=== PATIENT | female | born 1950 | race Caucasian/White ===

== ENCOUNTER 2016-07-16 20:07 | Emergency (ER) | payer MEDICARE ==
[2015-12-03 08:35] VITALS: BMI 22.2
[~2016-07-16 20:07] MED LIST: ADVAIR 250/501 DISK INH; ASPIRIN325 MG PO; BAYER CHEWABLE81 MG PO; BONIVA150 MG PO; CELEXA10 MG PO; CRESTOR20 MG PO; FENOGLIDE40 MG PO; IMDUR30 MG PO; NEURONTIN 100100 MG PO; NITROSTAT0.4 MG SL; PLAVIX75 MG PO; PLETAL100 MG PO; PROAIR HFA8.5 GM INH; PROTONIX40 MG PO; TOPROL XL100 MG PO; TOPROL XL25 MG PO; VIGAMOX3 ML EACH EYE; VITAMIN D2000 UNIT PO; VITAMIN D31000 UNI2 PO; ZOLOFT100 MG PO; [UNRECOGNIZED DRUG - OTHER]
[2016-07-16 21:38] LABS: BASOPHILS 0.4 % (0.0-2.0); EOSINOPHILS 1.3 % (0-7); HEMATOCRIT 46.1 % (36.0-48.0); HEMOGLOBIN 15.4 g/dL (12-16); IMMATURE GRANULOCYTES 0.2 % (0-5); LYMPHOCYTES 33.4 % (15-50); MCH 28.6 pg (26.0-34.0); MCHC 33.4 g/dL (31.0-37.0); MCV 85.7 fL (80.0-100.0); MEAN PLATELET VOLUME 9.7 fL (7.4-10.4); MONOCYTES 8.6 % (2-11); NEUTROPHILS 56.1 % (40-80); PLATELET COUNT 213 10x3/uL (130-400); RBC 5.38 10x6/uL (4.00-5.40); RDW 14.8 % (11.5-14.5); WBC 10.4 10x3/uL (4.8-10.8)
[2016-07-16 21:56] LABS: ALBUMIN 4.2 g/dL (3.4-5.0); ALKALINE PHOSPHATASE 88 U/L (46-116); ALT (SGPT) 24 U/L (10-68); CALC OSMOLALITY 282 mosm/kg (275-300); CARBON DIOXIDE 30.8 mmol/L (21.0-32.0); CHLORIDE - SERUM 102 mmol/L (98-107); CREATININE - SERUM 0.6 mg/dL (0.6-1.3); GLUCOSE 117 mg/dL (74-106); POTASSIUM - SERUM 3.4 mmol/L (3.5-5.1); SODIUM 142 mmol/L (136-145); UREA NITROGEN 9 mg/dL (7-18); eGFR NON AFRICAN AMERICAN > 90 mL/min (90-120)
[2016-07-16 21:59] LABS: APTT 29.3 SECONDS (22.8-39.4); INR 0.92 (0.85-1.17); PROTIME 12.2 SECONDS (11.6-15.0)
== END 2016-07-16 23:41 | disposition home or self-care (01) ==
LOC: D.ER 20:07
PROVIDERS: Emergency Medicine
DX: R42 Dizziness and giddiness (principal); J44.9 Chronic obstructive pulmonary disease, unspecified; E78.5 Hyperlipidemia, unspecified; F33.9 Major depressive disorder, recurrent, unspecified

== ENCOUNTER → 2016-07-17 12:46 | Outpatient (CLI) | payer MEDICARE ==
[2015-12-03 08:35] VITALS: BMI 22.2
== END | disposition home or self-care (01) ==
LOC: D.US 12:46
DX: R42 Dizziness and giddiness (principal); I65.22 Occlusion and stenosis of left carotid artery

== ENCOUNTER → 2016-07-23 10:42 | Outpatient (CLI) | payer MEDICARE ==
[2015-12-03 08:35] VITALS: BMI 22.2
== END | disposition home or self-care (01) ==
LOC: D.CT 10:42
DX: I65.22 Occlusion and stenosis of left carotid artery (principal)

== ENCOUNTER → 2016-08-22 06:27 | Outpatient (CLI) | payer MEDICARE ==
[2015-12-03 08:35] VITALS: BMI 22.2
== END | disposition home or self-care (01) ==
LOC: D.RT 06:27
DX: J44.9 Chronic obstructive pulmonary disease, unspecified (principal)

== ENCOUNTER 2016-12-28 11:39 | Inpatient (IN) | payer MEDICARE ==
[~2016-12-28] VITALS: Ht 157.5 cm; Wt 53.5 kg
--- NOTE | 2016-12-28 11:00 | NUR ---
RECIEVED FROM [facility] PER AMBULANCE/STRETCHER TO ROOM 1113R.POSITIONED UP IN BED.CL GIVEN.SURROUNDINGS EXPLAINED.ORIENTED TO ROOM.
--- NOTE | 2016-12-28 13:44 | NUR ---
SITTING UP IN BED RESTING FAMILY AT BEDSIDE. OFFERS NO COMPLAINTS. CALL LIGHT IN REACH. WILL CONTINUE TO MONITOR.
[2016-12-28] MEDS ORDERED: CRESTOR40 MG PO (14:39)
[2016-12-28] MEDS ORDERED: FENOFIBRATE54 MG PO (14:39)
[2016-12-28] MEDS ORDERED: ALENDRONATE SOD70 MG PO (14:40)
[2016-12-28] MEDS ORDERED: ASPIRIN325 MG PO (14:42)
[2016-12-28] MEDS ORDERED: LEVAQUIN500 MG PO (14:48)
[2016-12-28] MEDS ORDERED: PROTONIX40 MG PO (14:49)
[2016-12-28] MEDS ORDERED: REMERON15 MG PO (14:49)
--- NOTE | 2016-12-28 15:41 | NUR ---
LYING IN BED RESTING COMFORTABLY. CALL LIGTH IN REACH. WILL CONTINUE TO MONITOR
[2016-12-28 17:21] VITALS: BP 103/75; BMI 21.6
--- NOTE | 2016-12-28 18:59 | NUR ---
SITTING UP IN BED RESTING COMFORTABLY. AT BEDSIDE. CALL LIGHT IN REACH. WILL CONTINUE TO MONITOR
[2016-12-28 19:00] VITALS: BP 123/69
--- NOTE | 2016-12-28 19:47 | NUR ---
PT. IN BED WITH HOB UP FOR COMFORT WITH EYES CLOSED AND RESP. EVEN. SPOUSE AT BEDSIDE AND IS PREPARING TO LEAVE FOR THE NIGHT. CALL LIGHT WITHIN REACH. ELIZONDO CATHETER TO BSD WITHOUT PROBLEMS.
--- NOTE | 2016-12-28 20:00 | NUR ---
PT IN BED WITH HOB UP FOR COMFORT. RESTING QUIETLY. LEFT SIDE WEAKNESS. ELIZONDO CATH. ASPIRATION PRECAUTIONS. MEPILEX ON BUTTOCK FOR CUSHION. BED IN LOWEST POSITION AND CALL LIGHT WITHIN REACH.
--- NOTE | 2016-12-29 | NUR ---
PT LYING IN BED WITH HOB UP FOR COMFORT. EYES CLOSED. RESP EVEN. BED IN LOWEST POSITION AND CALL LIGHT WITHIN REACH.
--- NOTE | 2016-12-29 03:00 | NUR ---
PT LYING IN BED WITH HOB UP FOR COMFORT, EYES CLOSED, CHEST RISING AND FALLING. BED IN LOWEST POSITION AND CALL LIGHT WITHIN REACH.
[2016-12-29 05:06] LABS: BASOPHILS 0.2 % (0-2); EOSINOPHILS 1.6 % (0-7); HEMATOCRIT 33.6 % (36.0-48.0); HEMOGLOBIN 10.9 g/dL (12-16); IMMATURE GRANULOCYTES 1.4 % (0-5); LYMPHOCYTES 22.7 % (15-50); MCH 28.2 pg (26.0-34.0); MCHC 32.4 g/dL (31.0-37.0); MEAN PLATELET VOLUME 9.1 fL (7.4-10.4); MONOCYTES 10.4 % (2-11); NEUTROPHILS 63.7 % (40-80); RBC 3.86 10x6/uL (4.00-5.40); RDW 15.3 % (11.5-14.5); WBC 12.4 10x3/uL (4.8-10.8)
[2016-12-29 05:10] LABS: PLATELET COUNT 571 10x3/uL (130-400)
[2016-12-29 05:33] LABS: CALC OSMOLALITY 280 mosm/kg (275-300); CALCIUM 8.9 mg/dL (8.5-10.1); CARBON DIOXIDE 26.4 mmol/L (21.0-32.0); CHLORIDE - SERUM 104 mmol/L (98-107); CREATININE - SERUM 0.6 mg/dL (0.6-1.3); GLUCOSE 102 mg/dL (74-106); POTASSIUM - SERUM 4.2 mmol/L (3.5-5.1); SODIUM 140 mmol/L (136-145); UREA NITROGEN 18 mg/dL (7-18); eGFR NON AFRICAN AMERICAN > 90 mL/min (90-120)
--- NOTE | 2016-12-29 06:15 | NUR ---
PT LYING IN BED WITH HOB UP FOR COMFORT. WATCHING TV. BED IN LOWEST POSITION AND CALL LIGHT WITHIN REACH.
--- NOTE | 2016-12-29 07:18 | NUR ---
RESTING QUIETLY IN BED. NO S/S DISTRESS. CALL LIGHT IN REACH
[2016-12-29 09:06] VITALS: BP 93/64
[2016-12-29 12:15] VITALS: Ht 157.5 cm; Wt 53.5 kg
[2016-12-29 19:23] VITALS: BP 117/87
--- NOTE | 2016-12-29 20:15 | NUR ---
RECIEVED UP IN BED WITH FAMILY AT BEDSIDE. LEFT ARM AMD LEG FLACCID WITH NO PURPOSEFUL MOVEMENT. BLURRED VISION IN LEFT EYE. HELD UP 2 FINGERS AND THOUGHT THERE WERE 3 . ABLE TO SEE 2 FINGERS WITH RIGHT EYE. UNABLE TO TURN HER HEAD TO THE RIGHT. ALERT AND ORIENTED X4. SUTURES TO RIGHT SIDE OF NECK INTACT. NO REDNESS OR DRAINAGE OBSERVED. SCAB TO INNER LEFT THIGH. F/C PATENT WITH LIGHT YELLOW URINE DRAINING TO BEDSIDE DRAINAGE SYSTEM. LEFT ARM IN SLING.
--- NOTE | 2016-12-30 06:43 | NUR ---
RESTING IN BED WITH EYES CLOSED. NO S/S OF DISTRESS OBSERVED. ABLE TO TAKE AM MED WHOLE WITH PUDDING WITHOUT DIFFICULTY. ELIZONDO CATH PATENT.
[2016-12-30 07:00] VITALS: BP 105/64
--- NOTE | 2016-12-30 08:00 | NUR ---
SITTING UP IN BED BEING FED BREAKFAST BY . SHE HAS LEFT SIDE NEGLECT. DOES NOT LOOK PAST MIDLINE TO THE LEFT. HAS POOR PERIPHERAL VISION PER PT. SHE IS ORIENTED EXCEPT FOR LOCATION. SPEECH CLEAR. DENIES PAIN. LUE FLACCID WITH SLING IN PLACE. SHE DOES NOT ACKNOWLEDGE LUE. LLE IS WEAK BUT SHE HAS GROSS MOTOR MOVEMENT TO IT. WEAKNESS NOTED TO RLE'S BUT FULL ROM. F/C DRAINING CLOUDY URINE. FOLLOWS COMMANDS. MAX ASST WITH ALL ADL'S REQUIRED. STAYS WITH PT QUITE A BIT DURING THE DAY.
--- NOTE | 2016-12-30 12:12 | NUR ---
SITTING IN W/C IN ROOM WITH BLANCHE. SHE HAS TRAY IN FRONT OF HER AND TRYING TO GET HER TO FEED HERSELF.
[2016-12-30 14:11] VITALS: BP 105/64
--- NOTE | 2016-12-30 15:40 | NUR ---
RESTING QUIETLY IN BED. DENIES NEEDS OR C/O. ASST TO TURN OFF BACK TO HELP PREVENT SKIN BREAKDOWN.
--- NOTE | 2016-12-30 19:07 | NUR ---
RECIEVED LYING IN BED WITH EYES OPEN. ORIENTED X4. DENIES ANY PAIN AT THIS TIME. F/C PATENT AND DRAINING CLEAR YELLOW URINE TO BED SIDE DRAINAGE SYSTEM. CALL LIGHT IN REACH.
--- NOTE | 2016-12-30 20:54 | NUR ---
RECIEVED UP IN BED WITH EYES OPEN. ALERT AND ORIENTED TO PERSON, PLACE , TIME AND SITUATION. PLEASANT AND TALKATIVE, STATES "I'M AFRAID TO GOO TO SLEEP. BECAUSE I'M AFRAID THEY WILL DO ANOTHER SURGERY ON MY HEAD". EXPLAIN THIS NURSE IS UNAWARE OF ANY UPCOMMING SURGERIES. EXPLAINED THAT SHE NEEDS HER SLEEP SO SHE CAN DO THERAPY. SHE AGREED. CONTINUES TO HAVE FLACCID LEFT SIDE WITH SLING TO LEFT ARM. CALL LIGHT AND OVERBED TABLE IN REACH.
[2016-12-30 22:37] VITALS: BP 118/52
--- NOTE | 2016-12-31 00:04 | NUR ---
RESTING IN BED WITH EYES CLOSED. EASILY AROUSES WHEN ENTERING THE ROOM. GLASSES LAYING ON THE BED, PLACED ON BEDSIDE TABLE.DENIES ANY PAIN. LEFT ARM REMAINS IN SLING.
--- NOTE | 2016-12-31 02:34 | NUR ---
RESTING IN BED WITH EYES CLOSED. NO S/S OF DISTRESS OBSERVED. HOB ELEVATED FOR COMFORT. CALL LIGHT IN REACH.
[2016-12-31 06:46] LABS: BASOPHILS 0.4 % (0-2); EOSINOPHILS 1.6 % (0-7); HEMATOCRIT 33.2 % (36.0-48.0); HEMOGLOBIN 10.9 g/dL (12-16); IMMATURE GRANULOCYTES 0.7 % (0-5); LYMPHOCYTES 18.7 % (15-50); MCH 28.6 pg (26.0-34.0); MCHC 32.8 g/dL (31.0-37.0); MCV 87.1 fL (80.0-100.0); MEAN PLATELET VOLUME 9.2 fL (7.4-10.4); MONOCYTES 11.2 % (2-11); NEUTROPHILS 67.4 % (40-80); PLATELET COUNT 589 10x3/uL (130-400); RBC 3.81 10x6/uL (4.00-5.40); RDW 15.5 % (11.5-14.5); WBC 10.1 10x3/uL (4.8-10.8)
[2016-12-31 07:02] LABS: CALC OSMOLALITY 282 mosm/kg (275-300); CALCIUM 8.6 mg/dL (8.5-10.1); CARBON DIOXIDE 26.5 mmol/L (21.0-32.0); CHLORIDE - SERUM 106 mmol/L (98-107); CREATININE - SERUM 0.5 mg/dL (0.6-1.3); GLUCOSE 105 mg/dL (74-106); POTASSIUM - SERUM 4.2 mmol/L (3.5-5.1); SODIUM 142 mmol/L (136-145); UREA NITROGEN 13 mg/dL (7-18); eGFR NON AFRICAN AMERICAN > 90 mL/min (90-120)
--- NOTE | 2016-12-31 08:00 | NUR ---
SHIFT ASSMT COMPLETED.DENIES NEEDS.SET UP PROVIDED FOR BREAKFAST.LOOKING MORE TO LEFT;NOT FAVORING RIGHT MUCH PAST WEEKEND.
[2016-12-31 08:02] VITALS: BP 100/59
--- NOTE | 2016-12-31 12:00 | NUR ---
at bedside.CL IN REACH.
--- NOTE | 2016-12-31 12:00 | NUR ---
EATING LUNCH. ASSISTING.
--- NOTE | 2016-12-31 16:00 | NUR ---
VISITING WITH .CL IN REACH.
[2016-12-31 19:00] VITALS: BP 94/55
--- NOTE | 2016-12-31 19:15 | NUR ---
PT IN BED WITH HOB UP FOR COMFORT. WATCHING TV. ALERT & ORIENTED. LEFT SIDE WEAKNESS. 02 @ 2L VIA N/C. NO IV. ELIZONDO CATH. BED IN LOWEST POSITION AND CALL LIGHT WITHIN REACH.
--- NOTE | 2016-12-31 19:43 | NUR ---
PT. IN BED WITH HOB UP FOR COMFORT WITH EYES CLOSED AND RESP. EVEN. ELIZONDO TO BSD WITHOUT PROBLEMS. CALL LIGHT WITHIN REACH.
--- NOTE | 2016-12-31 23:40 | NUR ---
PT LYING IN BED. EYES CLOSED. CHEST RISING AND FALLING. BED IN LOWEST POSITION AND CALL LIGHT WITHIN REACH.
--- NOTE | 2017-01-01 03:40 | NUR ---
PT LYING IN BED. EYES CLOSED. RESP. EVEN. BED IN LOWEST POSITION AND CALL LIGHT WITHIN REACH.
--- NOTE | 2017-01-01 05:46 | NUR ---
PT LYING IN BED. EYES CLOSED. RESP. EVEN. BED IN LOWEST POSITION AND CALL LIGHT WITHIN REACH.
[2017-01-01 08:00] VITALS: BP 156/84
--- NOTE | 2017-01-01 08:00 | NUR ---
SHIFT ASSMT COMPLETED.DENIES NEEDS.CL IN REACH.MOVED TO ROOM 1116A.SITTING UP IN WC.BREAKFAST WITH MEAL SET-UP PROVIDED.
--- NOTE | 2017-01-01 10:29 | NUR ---
Nutrition Follow Up: Chart reviewed. Pt is eating 42% meal avg on a regular [facility] soft diet. +BM 12/31/16. Wt stable. Labs reviewed. Meds noted including Remeron. Rec continue current diet per OPTOMETRY ASSISTANT recs. RD following.
--- NOTE | 2017-01-01 12:00 | NUR ---
SITTING UP FOR LUNCH.SPEECH WORKING AT BEDSIDE WITH MEAL.
--- NOTE | 2017-01-01 16:00 | NUR ---
HAD SM INCONT OF BM.BLADDER TRAINING.CLEANED AND CLOTHES CHANGED.UP IN WC.
--- NOTE | 2017-01-01 19:10 | NUR ---
PT IN BED WITH HOB UP FOR COMOFRT. ALERT & ORIENTED. FAMILY AT BEDSIDE. NO O2. NO IV. BED IN LOWEST POSITION AND CALL LIGHT WITHIN REACH.
[2017-01-01 19:15] VITALS: BP 111/78
--- NOTE | 2017-01-01 22:40 | NUR ---
PT. IN BED WITH HOB UP FOR COMFORT WITH EYES CLOSED AND RESP. EVEN. CALL LIGHT WITHIN REACH. MIKHAIL TO BSD WITHOUT ANY PROBLEMS.
--- NOTE | 2017-01-02 02:40 | NUR ---
PT LYING IN BED. EYES CLOSED. CHEST RISING AND FALLING. BED IN LOWEST POSITION AND CALL LIGHT WITHIN REACH.
--- NOTE | 2017-01-02 06:19 | NUR ---
PT LYING IN BED. EYES CLOSED. RESP. EVEN. BED IN LOWEST POSITION AND CALL LIGHT WITHIN REACH.
[2017-01-02 06:32] LABS: BASOPHILS 0.4 % (0-2); EOSINOPHILS 2.1 % (0-7); HEMATOCRIT 33.3 % (36.0-48.0); HEMOGLOBIN 10.8 g/dL (12-16); IMMATURE GRANULOCYTES 0.4 % (0-5); LYMPHOCYTES 24.3 % (15-50); MCH 28.3 pg (26.0-34.0); MCHC 32.4 g/dL (31.0-37.0); MCV 87.2 fL (80.0-100.0); MEAN PLATELET VOLUME 9.2 fL (7.4-10.4); MONOCYTES 14.2 % (2-11); NEUTROPHILS 58.6 % (40-80); PLATELET COUNT 603 10x3/uL (130-400); RBC 3.82 10x6/uL (4.00-5.40); WBC 8.6 10x3/uL (4.8-10.8)
[2017-01-02 06:46] LABS: CALC OSMOLALITY 274 mosm/kg (275-300); CALCIUM 8.4 mg/dL (8.5-10.1); CARBON DIOXIDE 27.1 mmol/L (21.0-32.0); CHLORIDE - SERUM 103 mmol/L (98-107); CREATININE - SERUM 0.5 mg/dL (0.6-1.3); GLUCOSE 100 mg/dL (74-106); POTASSIUM - SERUM 4.2 mmol/L (3.5-5.1); SODIUM 138 mmol/L (136-145); UREA NITROGEN 11 mg/dL (7-18); eGFR NON AFRICAN AMERICAN > 90 mL/min (90-120)
--- NOTE | 2017-01-02 07:50 | NUR ---
RESTING QUIETLY IN BED. NO S/S DISTRESS OR NEEDS. CALL LIGHT IN REACH
[2017-01-02 08:16] VITALS: BP 109/55
--- NOTE | 2017-01-02 13:20 | NUR ---
SITTING UP VISITING WITH FRIEND IN ROOM. SHE DENIES PAIN OR NEEDS.
--- NOTE | 2017-01-02 16:35 | NUR ---
PATIENT ADMITTED TO [place] [facility] [place]. PLANS ARE FOR PATIENT TO RETURN HOME WITH FAMILY AT DISCHARGE. WILL CONTINUE TO FOLLOW WITH PATIENT
--- NOTE | 2017-01-02 19:25 | NUR ---
TALKS TO PT AT BEDSIDE.
[2017-01-03 02:34] VITALS: BP 131/73
--- NOTE | 2017-01-03 03:25 | NUR ---
IN BED, RESTING QUIETLY.
--- NOTE | 2017-01-03 05:11 | NUR ---
REST IN BED, EYE CLOSE, CALL LIGHT IN REACH.
[2017-01-03 07:11] VITALS: BP 134/67
--- NOTE | 2017-01-03 07:33 | NUR ---
RESTING QUIETLY IN BED. NO S/S DISTRESS NOTED. CALL LIGHT IN REACH
--- NOTE | 2017-01-03 09:52 | NUR ---
ASSISTED FROM BED TO CHAIR. PT STATES SHE IS NOT FEELING WELL TODAY C/O CHEST AND BACK HURTING AND RELATES TO SAME SYMPTOMS WHEN SHE HAD PNEUMONIA LAST TIME. DIMINISHED LUNG SOUNDS ON RIGHT SIDE AND PT IS NOT TAKING DEEP MEANINGFUL BREATHS. EDUCATED PT AND SPOUSE ON TCDB EVERY HOUR TO PREVENT PNEUMONIA.
--- NOTE | 2017-01-03 12:16 | NUR ---
SITTING UP IN BED EATING LUNCH. AT BEDSIDE. CALL LIGHT IN REACH. WILL CONTINUE TO MONITOR
--- NOTE | 2017-01-03 16:58 | NUR ---
SITTING UP IN BED VISITING FAMILY. PLEASANT AFFECT. DENIES ANY PAIN AND OFFERS NO COMPLAINTS. CALL LIGHT IN REACH. WILL CONTINUE TO MONITOR
--- NOTE | 2017-01-03 19:50 | NUR ---
REST IN BED AND WATCH TV.
--- NOTE | 2017-01-03 22:10 | NUR ---
RESTING IN BED, EYES CLOSED.
[2017-01-04 00:46] VITALS: BP 130/64
--- NOTE | 2017-01-04 02:21 | NUR ---
REST QUIETLY IN BED, EYE CLOSE, CALL LIGHT IN REACH.
--- NOTE | 2017-01-04 07:50 | NUR ---
SITTING UP IN BED FAMILY AT BEDSIDE. PLEASANT AFFECT. OFFERS NO COMPLAINTS. CALL LIGHT IN REACH. WILL CONTINUE TO MONITOR
--- NOTE | 2017-01-04 09:42 | NUR ---
LYING ON RIGHT SIDE RESTING COMFORTABLY. FAMILY AT BEDSIDE. STARTED BLADDER TRAINING AND PROVIDED ELIZONDO CARE. ADMINISTERED MORNING MEDS WITHOUT DIFFICULTY ONE AT A TIME. CALL LIGHT IN REACH. WILL CONTINUE TO MONITOR
--- NOTE | 2017-01-04 11:20 | NUR ---
LYING IN BED RESTING COMFORTABLY. FAMILY AT BEDSIDE. CALL LIGHT IN REACH. WILL CONTINUE TO MONITOR
--- NOTE | 2017-01-04 18:00 | NUR ---
ASSISTED PT WITH SHOWER MOD ASSIST. PT IS UP IN W/C FAMILY IN ROOM. OFFERS NO COMPLAINTS. DENIES PAIN. ELIZONDO CLAMPED OFF FOR BLADDER TRAINING. CALL LIGHT IN REACH
--- NOTE | 2017-01-04 23:45 | NUR ---
ASSISTED PT TO BATHROOM AND BACK TO BED.
[2017-01-05 02:51] VITALS: BP 126/70
--- NOTE | 2017-01-05 03:22 | NUR ---
REST QUIETLY IN BED, EYE CLOSE, CALL LIGHT IN REACH.
[2017-01-05 05:25] LABS: BASOPHILS 0.4 % (0-2); EOSINOPHILS 2.8 % (0-7); HEMATOCRIT 34.1 % (36.0-48.0); IMMATURE GRANULOCYTES 0.4 % (0-5); LYMPHOCYTES 30.3 % (15-50); MCH 28.1 pg (26.0-34.0); MCHC 32.3 g/dL (31.0-37.0); MEAN PLATELET VOLUME 9.2 fL (7.4-10.4); MONOCYTES 12.8 % (2-11); NEUTROPHILS 53.3 % (40-80); PLATELET COUNT 531 10x3/uL (130-400); RBC 3.92 10x6/uL (4.00-5.40); RDW 16.5 % (11.5-14.5); WBC 8.3 10x3/uL (4.8-10.8)
[2017-01-05 05:34] LABS: CALC OSMOLALITY 280 mosm/kg (275-300); CALCIUM 8.6 mg/dL (8.5-10.1); CHLORIDE - SERUM 104 mmol/L (98-107); CREATININE - SERUM 0.6 mg/dL (0.6-1.3); GLUCOSE 116 mg/dL (74-106); POTASSIUM - SERUM 4.2 mmol/L (3.5-5.1); SODIUM 140 mmol/L (136-145); UREA NITROGEN 15 mg/dL (7-18); eGFR NON AFRICAN AMERICAN > 90 mL/min (90-120)
[2017-01-05 07:30] VITALS: BP 151/76
--- NOTE | 2017-01-05 08:30 | NUR ---
PT AM MEDS ADMINISTERED. PT FAMILY AT BEDSIDE. WCROCAEL.
--- NOTE | 2017-01-05 12:05 | NUR ---
PT SITTING UP EATING LUNCH. FAMILY ASSISTING. WCTM.
--- NOTE | 2017-01-05 19:20 | NUR ---
PT IN BED WITH HOB UP FOR COMOFRT. ALERT & ORIENTED. FAMILY AT BEDSIDE. RESERVE BILATERAL UPPER EXTREMITIES. ELIZODNO CATH. LEFT SIDE WEAKNESS. NO O2. NO IV. BED IN LOWEST POSITION AND CALL LIGHT WITHIN REACH.
[2017-01-05 20:07] VITALS: BP 105/64
--- NOTE | 2017-01-05 20:17 | NUR ---
PT. IN BED WITH HOB UP FOR COMFORT AND IS WATCHING HER TV. NO VOICED NEEDS AND HER CALL LIGHT IS WITHIN REACH.
--- NOTE | 2017-01-06 00:15 | NUR ---
PT LYING IN BED. EYES CLOSED. RESPIRATIONS EVEN AND UNLABORED. BED IN LOWEST POSITION AND CALL LIGHT WITHIN REACH.
--- NOTE | 2017-01-06 04:13 | NUR ---
PT LYING IN BED. EYES CLOSED. RESPIRATIONS EVEN AND UNLABORED. BED IN LOWEST POSITION AND CALL LIGHT WITHIN REACH.
[2017-01-06 08:19] VITALS: BP 125/71
--- NOTE | 2017-01-06 08:20 | NUR ---
PT C/O OF HEAVINESS AND PAIN IN CHEST. EKG AND CARDIAC ENZYME TESTS ORDERED. WCTM.
--- NOTE | 2017-01-06 09:17 | NUR ---
PT AM MEDS ADMINISTERED. PT GIVEN PRN TYLENOL FOR PAIN LEVEL 6/10. EKG CAME BACK NORMAL SR. ANGELICA.
--- NOTE | 2017-01-06 09:53 | NUR ---
Nutrition Follow Up: Pt is eating 84% meal avg on a regular [facility] soft diet with thin liquids. +BM 01/05/17. Meds noted inlcuding Remeron. Labs reviewed. Rec continue current diet. RD following.
[2017-01-06 10:04] LABS: CKMB 0.8 U/L (0.0-3.6); CREATINE KINASE 42 UL (21-215); TROPONIN-I 0.028 ng/mL (0.000-0.060)
[2017-01-06 15:12] LABS: CKMB 0.9 U/L (0.0-3.6); CREATINE KINASE 46 UL (21-215); TROPONIN-I 0.024 ng/mL (0.000-0.060)
--- NOTE | 2017-01-06 19:20 | NUR ---
FAMILY MEMBERS VISIT PT.
--- NOTE | 2017-01-06 19:50 | NUR ---
CHECK VITAL SIGNS, RESULT SEE FLOWSHEET.
[2017-01-06 20:22] LABS: CKMB 0.8 U/L (0.0-3.6); CREATINE KINASE 45 UL (21-215); TROPONIN-I 0.023 ng/mL (0.000-0.060)
--- NOTE | 2017-01-06 22:10 | NUR ---
USE STERILE TECHNIC REMOVED SUTURE, AND SUPERVISED BY
[2017-01-07 00:33] VITALS: BP 161/81
--- NOTE | 2017-01-07 01:01 | NUR ---
REST IN BED, EYE CLOSE, CALL LIGHT IN REACH.
--- NOTE | 2017-01-07 03:10 | NUR ---
IN BED, EYES CLOSED. LYING ON RIGHT SIDE. APPEARS COMFORTABLE.
--- NOTE | 2017-01-07 06:10 | NUR ---
ELIZONDO CATH D/C PER ORDER. WITHDREW 10CC OF WATER FROM BALLOON,CATHETER REMOVED WITHOUT DIFFICULTY. INSTRUCTED PT TO NOTIFY NURSE OF FIRST VOID.
[2017-01-07 09:06] VITALS: BP 122/71
--- NOTE | 2017-01-07 10:04 | NUR ---
PT AM MEDS ADMINISTERED. PT MOUNIKA PURCELL. ANGELICA.
--- NOTE | 2017-01-07 17:20 | RHP ---
PATIENT: BRAXTON DAVIS MEDICAL RECORD: [id number] ACCOUNT: [id number] LOCATION:[facility] [id number] : 50 ADMISSION DATE: 12/28/16 REHABILITATION HISTORY AND PHYSICAL EXAMINATION POST ADMISSION PHYSICIAN EXAMINATION DATE OF ADMISSION TO THE REHAB: 12/28/2016. ADMITTING DIAGNOSES: Cerebrovascular accident with left body involvement, respiratory failure. HISTORY OF PRESENT ILLNESS: The patient is a 66-year-old with a bilateral subclavian artery stents, who presented to [facility] with textbook vertebrobasilar insufficiency. She has drops, attacks and dizziness. She had bilateral subclavian artery stents and a nonpalpable right radial pulse. She was evaluated for possible vertebral artery disease as well as bilateral lower extremity peripheral vascular disease. She notes that starting 2009, she had bilateral subclavian stents placed for dizziness and TIA symptoms. She takes dual antiplatelet therapy with aspirin and Plavix. She has had recurrence of her dizziness starting 2-3 months ago. She notes especially when she is having activity with arms like recently while she was working, she has been having dizziness more frequently at 1-2 times a week. She has drop attacks as well, these only last minutes at a time. She has had episodes while driving, no amaurosis fugax, lateralization, weakness or aphasia with these episodes. She has had a previous CTA in July of this year that revealed right subclavian in-stent stenosis at the origin of the right vertebral artery which appeared to be her dominant artery. She has got a history of bilateral lower extremity claudication. She has had a SFA stent placed in [place] as well. She definitely is going to need inpatient rehab to get back to her prior level of functioning, get up and get around. COMORBIDITIES: In this patient include vertebrobasilar insufficiency, hypertension, arthritis, breast cancer, peripheral vascular disease, COPD, depression, vertigo, hyperlipidemia, double vision and peripheral neuropathy. PAST MEDICAL HISTORY: Significant for hypertension, peripheral vascular disease, coronary artery disease, breast cancer, hyperlipidemia and mastectomy. PAST SURGICAL HISTORY: Includes mastectomy and stent placement. ALLERGIES: SULFA AND CODEINE. CURRENT MEDICATIONS: Include TriCor 40 mg daily, Crestor 40 mg daily, Floranex 460 mg daily, Plavix 75 mg daily, Protonix 40 mg daily, Levaquin 500 for a total of 6 doses, aspirin 325 daily. She is on citalopram 20 mg q.h.s., metoprolol 12.5 mg b.i.d., Remeron 15 mg bedtime, acetaminophen as needed for mild to moderate pain, polyethylene glycol 17 grams in 8 ounces of water daily and she is getting albuterol updrafts as needed. HABITS: No alcohol or tobacco use. FAMILY HISTORY: Noncontributory. SOCIAL HISTORY: The patient hopes to return back home. She lives in [place] with her . HISTORY AND PHYSICAL [id number] BRAXTON DAVIS REVIEW OF SYSTEMS: GENERAL: Does complain of weakness and fatigue. HEENT: Denies cold, cough, or congestion. CARDIOVASCULAR: Denies any chest pain. LUNGS: Denies any shortness of breath. PHYSICAL EXAMINATION: VITAL SIGNS: Stable, afebrile. GENERAL: Well-developed female in no acute distress, alert upon exam. HEENT: Normocephalic and atraumatic. Mucosa moist. NECK: Supple. No lymphadenopathy. LUNGS: Clear at this time. HEART: Regular rate and rhythm. ABDOMEN: Benign. EXTREMITIES: No clubbing, cyanosis or edema. NEUROLOGIC: Seems intact. LABORATORY DATA: Her white count is 12.4, H&H of 11 and 34 and platelet count 571. Sodium 140, potassium 4.2, BUN and creatinine of 18 and 0.6 and blood sugar is noted to be 102. ASSESSMENT: This is a 66-year-old female patient admitted to rehab with a working diagnosis of right middle cerebral artery cerebrovascular accident. The patient has potential to make improvement. We instituted the following multidisciplinary therapies including to, but not limited to physical, occupational, respiratory, speech, nutritional services, prosthetics and orthotics. Given her complex condition and risk for more complications, rehabilitation services cannot be provided at a lower level of care such as a senior living facility. PLAN: 1. Admit to [facility] rehab for intensive inpatient therapy to include the following disciplines: A. Physical therapy to improve gait, all transfer skills and bed mobility to a modified independent level. B. Occupational therapy a modified independent level. C. Case management to assist with discharge planning and placement options. D. Nutrition to assist with nutritional needs. E. Rehabilitation nursing to assist in monitoring the patient's underlying medical conditions and to assist with any type of bowel or bladder management. 2. The patient's current medication and medical care will be continued. 3. The patient will be placed on standard fall precautions. 4. Estimated length of stay is approximately 7-10 days. 5. Discuss this patient during care team staff meeting this week. TRANSINT:[id number] Voice Confirmation ID: [id number] DOCUMENT ID: [id number] CHRISTY notes whether there has been none or any medical/functional change since admission: - No change since prescreen. CHRISTY attests patient continues to be appropriate for IRF: HISTORY AND PHYSICAL [id number] BRAXTON DAVIS - Continues to be appropriate. KALLIE AVILES MD at 1720 CC: [id number] DICTATION DATE: 12/29/16 0856 RESOURCE MANAGEMENT PLANNER: 12/29/16 1025 ADM IN [place] [id number] [place] [address]
[2017-01-07 19:00] VITALS: BP 110/54
--- NOTE | 2017-01-07 19:25 | NUR ---
PT IN BED WITH HOB UP FOR COMFORT. WATCHING TV. ALERT & ORIENTED. RESERVE BOTH UPPER EXTREMITIES. TAKE BP ON RIGHT LEG. LEFT SIDE WEAKNESS. RIGHT SIDE NECK BANDAIDE. CONTINENT. NO O2. NO IV. BED IN LOWEST POSITION AND CALL LIGHT WITHIN REACH.
--- NOTE | 2017-01-07 23:25 | NUR ---
PT LYING IN BED WITH HOB UP FOR COMOFRT. EYES CLOSED. CHEST RISING AND FALLING. BED IN LOWEST POSITION AND CALL LIGHT WITHIN REACH.
--- NOTE | 2017-01-08 00:13 | NUR ---
ASSISTED PT TO BATHROOM AND BACK TO BED.
--- NOTE | 2017-01-08 02:40 | NUR ---
RESTING QUIETLY, EYES CLOSED.
--- NOTE | 2017-01-08 06:25 | NUR ---
PT LYING IN BED. EYES CLOSED. RESP. EVEN. BED IN LOWEST POSITION AND CALL LIGHT WITHIN REACH.
--- NOTE | 2017-01-08 08:11 | NUR ---
EATING BREAKFAST IN ROOM. CALL LIGHT IN REACH. DENIES NEEDS.
[2017-01-08 08:49] VITALS: BP 128/89
--- NOTE | 2017-01-08 09:54 | NUR ---
PATIENT IS ALERT/ORIENT X4. HAS FAMILY IN ROOM WITH HER. CALL LIGHT WITHIN REACH.
--- NOTE | 2017-01-08 13:00 | NUR ---
PATIENT SITTING UP IN WHEELCHAIR TO EAT BREAKFAST. CALL LIGHT WITHIN REACH. FAMILY REMAINS IN ROOM.
--- NOTE | 2017-01-08 14:29 | NUR ---
OCCUPATIONAL THERAPIST IN ROOM. HELPING PATIENT WITH A SHOWER.
--- NOTE | 2017-01-08 19:30 | NUR ---
TALK TO PT AT BEDSIDE.
[2017-01-09 00:47] VITALS: BP 101/61
--- NOTE | 2017-01-09 01:42 | NUR ---
REST IN BED, CALL LIGHT IN REACH.
--- NOTE | 2017-01-09 05:01 | NUR ---
REST QUIETLY IN BED, EYE CLOSE, CALL LIGHT IN REACH.
[2017-01-09 07:42] VITALS: BP 141/76
--- NOTE | 2017-01-09 08:50 | NUR ---
PATIENTS IN ROOM WITH PATIENT. HELPING PATIENT INTOF BATHROOM. PATIENT IS ALERT/ORIENT. CALL LIGHT WITHIN REACH. VOICES NO NEEDS AT THIS TIME.
--- NOTE | 2017-01-09 11:00 | NUR ---
PATIENT IN REHAB ROOM. WORKING WITH PHYSICAL THERAPIST. DENIES ANY PAIN/DISC AT THIS TIME.
--- NOTE | 2017-01-09 17:33 | NUR ---
PATIENTS FAMILY REMAINS IN ROOM. PATIENT IS A MIN TO MOD ASST TO THE BATHROOM. FAMILY TAKING PATIENT TO BATHROOM.
[2017-01-09 19:23] VITALS: BP 149/64
--- NOTE | 2017-01-09 19:23 | NUR ---
RECIEVED UP IN BED WITH EYES OPEN AND TV ON. SPOUSE AT BEDSIDE. PLEASANT AND COOPERATIVE. HOB ELEVATED. DENIES ANY PAIN. CALL LIGHT IN REACH.
--- NOTE | 2017-01-09 20:04 | NUR ---
LYING IN BED WITH EYES CLOSED. EASILY AROUSES WITH VERBAL STIMULI. DENIES ANY PAIN AT THIS TIME. CALL LIGHT AND OVERBED TABLE IN REACH.
--- NOTE | 2017-01-09 22:03 | NUR ---
RESTING IN BED WITH EYES OPEN. DENIES ANY PAIN. CALL LIGHT AND OVERBED TABLE IN REACH.
--- NOTE | 2017-01-10 02:17 | NUR ---
LAYING IN BED WITH EYES CLOSED. NO S/S OF DISTRESS OBSERVED. CALL LIGHT AND OVERBED TABLE IN REACH.
--- NOTE | 2017-01-10 04:00 | NUR ---
RESTING IN BED WITH EYES CLOSED. NO S/S OF DISTRESS OBSERVED. CALL LIGHT IN REACH.
--- NOTE | 2017-01-10 07:10 | NUR ---
PT. SLIPPED OFF THE TOILET THIS AM. ROM WITHIN NORMAL LIMITS FOR THIS PT..NO INJURY OBSERVED. STATED " MY LEGGS MUST HAVE GIVEN OUT". THIS NURSE WAS STANDING IN FRONT OF HER AT THE TIME SHE SLID. SLOT SERVICE SPECIALIST NOTIFIED AT 0618. DR. AVILES NOTIFIED AT 0620 AND SPOUSE NOTIFIED AT 0631.
--- NOTE | 2017-01-10 07:10 | NUR ---
RESTING QUIETLY IN BED. NO S/S DISTRESS. CALL LIGHT IN REACH
[2017-01-10 10:46] VITALS: BP 128/76
--- NOTE | 2017-01-10 13:17 | NUR ---
SITTING UP IN BED WATCHING TV. IN ROOM WITH PT. HE ASST HER WITH TASKS AND IS SUPPORTIVE.
[2017-01-10 19:00] VITALS: BP 143/74
--- NOTE | 2017-01-10 19:00 | NUR ---
RECIEVED UP IN BED WITH EYES OPEN AND EATING TAKEOUT FOOD BROUGHT IN BY SPOUSE. SPOUSE AT BEDSIDE. PLEASANT COOPERATIVE AND TALKATIVE. DENIES ANY PAIN AT THIS TIME. CALL LIGHT IN REACH.
--- NOTE | 2017-01-10 21:15 | NUR ---
RESTING IN BED WITH EYES OPEN AND LIGHTS OFF. PLEASANT AND COOPERATIVE. DENIES ANY PAIN OR DISCOMFORT. REPOSITIOONS SELF IN BED. CALL LIGHT AND OVERBED TABLE IN REACH.
--- NOTE | 2017-01-11 01:06 | NUR ---
RESTING IN BED WITH EYES CLOSED. NO S/S OF DISTRESS OBSERVED. CALL LIGHT AND OVERBED TABLE IN [facility].
[2017-01-11 07:36] VITALS: BP 149/71
--- NOTE | 2017-01-11 13:00 | NUR ---
AND GRANDSON HERE TOOK PT OUTSIDE ON DECK TO RELAX IN SUN
--- NOTE | 2017-01-11 18:12 | NUR ---
PT RESTING ,DENIES NEEDS. WCTM.
--- NOTE | 2017-01-11 19:30 | NUR ---
TALKS TO PT AT BEDSIDE.
[2017-01-11 23:57] VITALS: BP 167/92
--- NOTE | 2017-01-12 01:01 | NUR ---
REST IN BED QUIETLY, EYE CLOSE, CALL LIGHT IN REACH.
--- NOTE | 2017-01-12 03:28 | NUR ---
REST IN BED, EYE CLOSE, CALL LIGHT IN REACH.
[2017-01-12 07:08] LABS: BASOPHILS 0.5 % (0-2); EOSINOPHILS 5.2 % (0-7); HEMATOCRIT 38.4 % (36.0-48.0); HEMOGLOBIN 12.3 g/dL (12-16); IMMATURE GRANULOCYTES 0.3 % (0-5); LYMPHOCYTES 39.4 % (15-50); MCH 28.1 pg (26.0-34.0); MCV 87.7 fL (80.0-100.0); MEAN PLATELET VOLUME 9.5 fL (7.4-10.4); MONOCYTES 11.8 % (2-11); NEUTROPHILS 42.8 % (40-80); RBC 4.38 10x6/uL (4.00-5.40); RDW 16.4 % (11.5-14.5); WBC 5.9 10x3/uL (4.8-10.8)
[2017-01-12 07:12] LABS: PLATELET COUNT 309 10x3/uL (130-400)
[2017-01-12 07:16] LABS: CALC OSMOLALITY 278 mosm/kg (275-300); CALCIUM 8.9 mg/dL (8.5-10.1); CARBON DIOXIDE 26.2 mmol/L (21.0-32.0); CHLORIDE - SERUM 106 mmol/L (98-107); CREATININE - SERUM 0.5 mg/dL (0.6-1.3); GLUCOSE 90 mg/dL (74-106); POTASSIUM - SERUM 4.1 mmol/L (3.5-5.1); SODIUM 140 mmol/L (136-145); UREA NITROGEN 13 mg/dL (7-18); eGFR NON AFRICAN AMERICAN > 90 mL/min (90-120)
[2017-01-12 08:00] VITALS: BP 121/77
--- NOTE | 2017-01-12 08:02 | NUR ---
PT RESTING IN BED WITH EYES OPEN CALL LIGHT IN REACH NO PROBLEMS WILL MONITER
--- NOTE | 2017-01-12 19:30 | NUR ---
PM ROUNDS MADE, PT RESTING WITH EYES CLOSED, RESP QUIET, NO DISTRESS NOTED, LEFT UNDISTURBED AT THIS TIME
--- NOTE | 2017-01-12 20:20 | NUR ---
PT AWAKE, ASSESSMENT PER FLOW SHEET, PT REPORTS FLATUS, BM TODAY AND VOIDING WITH NO DIFFICULTY, PT INST ON AND VERBALIZES UNDERSTANDING OF CALL LIGHT WHEN NEEDING TO USE THE BR, PT RATES NECK PAIN 11/10, INFORMED PT THAT I WILL CHECK TO SEE WHEN PAIN MED IS DUE AND THAT I WILL BRING IT WHEN DUE, PT VERBALIZES UNDERSTANDING, DENIES NEEDS AT THIS TIME, BED IN LOW POSITION, SIDE RAILS X 2, CALL LIGHT IN REACH
--- NOTE | 2017-01-12 21:33 | NUR ---
PT RESTING WITH EYES CLOSED, AROUSES TO SOFT VERBAL STIMULATION, ADM 2100 MEDS PER MD ORDERS, ORDERS SEE EMAR, PT DENIES FURTHER NEEDS
[2017-01-12 21:45] VITALS: BP 176/73
--- NOTE | 2017-01-12 22:30 | NUR ---
PT RESTING WITH EYES CLOSED, RESP QUIET, NO DISTRESS NOTED, LEFT UNDISTURBED AT THIS TIME
--- NOTE | 2017-01-13 00:30 | NUR ---
PT RESTING WITH EYES CLOSED, RESP QUIET, NO DISTRESS NOTED, LEFT UNDISTURBED AT THIS TIME
--- NOTE | 2017-01-13 02:15 | NUR ---
PT RESTING WITH EYES CLOSED, RESP QUIET, NO DISTRESS NOTED, LEFT UNDISTURBED AT THIS TIME, BED IN LOW POSITION, SIDE RAILS X 2, CALL LIGHT IN REACH, BED ALARM ON
--- NOTE | 2017-01-13 04:10 | NUR ---
PT RESTING WITH EYES CLOSED, RESP QUIET, NO DISTRESS NOTED, LEFT UNDISTURBED AT THIS TIME
--- NOTE | 2017-01-13 06:13 | NUR ---
PT RESTING WITH EYES CLOSED, AROUSES TO SOFT VERBAL STIMULATION, ADM 0600 MED PER MD ORDERS, SEE EMAR, PT UP TO WC WITH ASSISTANCE, PT TO BR, VOIDED BY SELF WITH NO DIFFICULTY, PT BACK TO BED, DENIES FURTHER NEEDS OR PAIN AT THIS TIME
--- NOTE | 2017-01-13 06:44 | NUR ---
SHIFT REPORT TO DAY SHIFT
--- NOTE | 2017-01-13 08:26 | NUR ---
PT RESTING IN BED WITH EYES OPEN CALL LIGHT IN REACH EATING BREAKFAST AT BED SIDE TOLERATING WELL WILL MONITER
[2017-01-13 08:33] VITALS: BP 125/63
--- NOTE | 2017-01-13 12:15 | NUR ---
PT UP IN WHEELCHAIR EATING LUNCH CALL LIGHT IN REACH IN ROOM WILL MONITER
--- NOTE | 2017-01-13 13:49 | NUR ---
Nutrition Follow Up: Pt is eating 45% meal avg on a regular [facility] soft diet with thin liquids. +BM 01/11/17. Labs reviewed. Meds noted including Remeron. Rec continue current diet. Pt may benefit from an appetite stimulant. RD following.
--- NOTE | 2017-01-13 18:06 | NUR ---
PT RESTING IN BED WITH EYES OPEN CALL LIGHT IN REACH NO PROBLEMS WILL MONITER
--- NOTE | 2017-01-13 19:45 | NUR ---
REST IN BED AND WATCH TV.
[2017-01-13 20:04] VITALS: BP 118/72
--- NOTE | 2017-01-14 03:20 | NUR ---
RESTING QUEITLY ON LEFT SIDE. NO EVIDENT DISTRESS.
--- NOTE | 2017-01-14 04:47 | NUR ---
REST QUIETLY IN BED, EYE CLOSE, CALL LIGHT IN REACH.
--- NOTE | 2017-01-14 08:00 | NUR ---
PATIENT SITTING UP IN WHEELCHAIR IN ROOM. FAMILY IN ROOM WITH PATIENT. HELPING PATIENT WITH BREAKFAST. PATIENT DENIES ANY NEEDS AT THIS TIME.
--- NOTE | 2017-01-14 08:00 | NUR ---
PATIENT IN REHAB ROOM. WORKING WITH PHYSICAL THERAPIST. DENIES ANY PAIN/DISC AT THIS TIME.
[2017-01-14 08:53] VITALS: BP 167/97
--- NOTE | 2017-01-14 10:31 | NUR ---
PATIENT IN REHAB ROOM. WORKING WITH PHYSICAL THERAPIST. DENIES ANY PAIN/DISC AT THIS TIME.
--- NOTE | 2017-01-14 12:44 | NUR ---
PATIENT SITTING UP IN WHEELCHAIR AT BEDSIDE TO EAT LUNCH. DENIES ANY NEEDS AT THIS TIME. PATIENT HAS A GOOD APPETITE.
--- NOTE | 2017-01-14 15:37 | NUR ---
ASSESSED PT SPO2 86 ON ROOM AIR REAPPLIED NASAL CANNULLA 2 LITERS PT 02 NOW CURRENTLY 94
--- NOTE | 2017-01-14 19:17 | NUR ---
FAMILY REMAINS AT PATIENTS BEDSIDE
--- NOTE | 2017-01-14 19:30 | NUR ---
PT IN BED WITH HOB UP FOR COMOFRT. WATCHING TV. ALERT & ORIENTED. BOTH UPPER EXT. RESERVE. NO O2. NO IV. BED IN LOWEST POSITION AND CALL LIGHT WITHIN REACH.
--- NOTE | 2017-01-14 20:00 | NUR ---
PT IN BED WITH HOB UP FOR COMOFRT. WATCHING TV. ALERT & ORIENTED. AT BEDSIDE. NO O2. NO IV. RESERVE BOTH UPPER EXT. BED IN LOWEST POSITION AND CALL LIGHT WITHIN REACH.
--- NOTE | 2017-01-14 20:44 | NUR ---
PT. IN BED WITH HOB UP FOR COMFORT WITH TV ON. NO VOICED NEEDS AT THIS TIME AND HER CALL LIGHT IS WITHIN REACH.
[2017-01-14 22:39] VITALS: BP 99/57
--- NOTE | 2017-01-15 | NUR ---
PT LYING IN BED. EYES CLOSED. CHEST RISING AND FALLING. BED IN LOWEST POSITION AND CALLL LIGHT WITHIN REACH.
--- NOTE | 2017-01-15 05:45 | NUR ---
PT LYING IN BED. EYES CLOSED. RESP. EVEN. BED IN LOWEST POSITION AND CALL LIGHT WITHIN REACH.
--- NOTE | 2017-01-15 08:46 | NUR ---
PT RESTING IN BED WITH EYES OPEN CALL LIGHT IN REACH NO PROBLEMS WILL MONITER
--- NOTE | 2017-01-15 12:25 | NUR ---
EATING LUNCH. DENIES NEEDS OR C/O.
--- NOTE | 2017-01-15 15:08 | NUR ---
FAMILY ATTENDED CARE TEAM MEETING . THEY REQUEST A REFFERRAL TO BE MADE TO [facility]. AND WOULD LIKE A PASS TO GO OUT WITH SPOUSE ON THURSDAY . REFERRAL HAS BEEN FAXED FOR POSSIBLE ADMISSION NEXT WEEK. WILL CONTINUE TO FOLLOW WITH PATIENT
[2017-01-15 19:58] VITALS: BP 104/68
--- NOTE | 2017-01-15 23:30 | NUR ---
PT LYING IN BED. EYES CLOSED. CHES RISING AND FALLING. BED IN LOWEST POSITION AND CALL LIGHT WITHIN REACH.
--- NOTE | 2017-01-16 03:30 | NUR ---
PT IN BED WITH HOB UP FOR COMFORT. EYES CLOSED. RESPIRATIONS EVEN AND UNLABORED. BED IN LOWEST POSITION AND CALL LIGHT WITHIN REACH.
--- NOTE | 2017-01-16 04:57 | NUR ---
RESTING IN BED WITH EYES CLOSED. LAYING ON LEFT SIDE. NO S/S OF DISTRESS OBSERVED. CALL LIGHT AND OVERBED TABLE IN REACH.
[2017-01-16 09:03] VITALS: BP 132/71
--- NOTE | 2017-01-16 18:04 | NUR ---
PT RESTING IN BED WITH EYES OPEN CALL LIGHT IN REACH NO PROBLEMS WILL MONITER
--- NOTE | 2017-01-16 19:20 | NUR ---
TALKS TO PT AT BEDSIDE.
[2017-01-16 23:27] VITALS: BP 120/72
--- NOTE | 2017-01-16 23:52 | NUR ---
TALKS TO PT AT BEDSIDE.
--- NOTE | 2017-01-17 02:50 | NUR ---
RESTING ON BACK, EYES CLOSED.
--- NOTE | 2017-01-17 03:11 | NUR ---
REST IN BED, EYE CLOSE, CALL LIGHT IN REACH.
--- NOTE | 2017-01-17 08:01 | NUR ---
SITTING UP IN BED WAITING ON BREAKFAST. IN ROOM WITH PT TRYING TO FIX HER HAIR. SHE IS NOT COOPERATING WITH HIM VERY MUCH AND KEEPS PULLING AWAY FROM BRUSH. HE IS PATIENT AND KIND WITH HER. SHE DENIES C/O. LUE FLACCID, LLE WEAK.
--- NOTE | 2017-01-17 11:21 | NUR ---
OFF FLOOR FOR PASS.
[2017-01-17 13:45] VITALS: BP 117/66
--- NOTE | 2017-01-17 13:54 | NUR ---
OFF FLOOR FOR PASS
--- NOTE | 2017-01-17 17:32 | NUR ---
EATING SUPPER IN ROOM. DENIES NEEDS. CALL LIGHT IN REACH
--- NOTE | 2017-01-17 19:40 | NUR ---
REST IN BED, EYE OPEN, DENIES NEEDS.
[2017-01-17 22:31] VITALS: BP 101/60
--- NOTE | 2017-01-18 01:40 | NUR ---
RESTING IN BED ON RIGHT SIDE. APPEARS COMFORTABLE.
--- NOTE | 2017-01-18 05:55 | NUR ---
PT REST QUIETLY IN BED, EYE CLOSE, CALL LIGHT IN REACH.
--- NOTE | 2017-01-18 07:44 | NUR ---
SITTING UP IN BED WATCHING TV. DENIES NEEDS OR C/O. CALL LIGHT IN REACH
--- NOTE | 2017-01-18 12:17 | NUR ---
SITTING IN CHAIR IN ROOM EATING LUNCH. IN ROOM WITH PT.HE STAYS WITH HER OFTEN DURING THE DAY AND ASST HER WITH HER NEEDS. PT IS ORIENTED BUT THINKS SHE HAS 3 ARMS.
[2017-01-18 12:19] VITALS: BP 165/98
--- NOTE | 2017-01-18 18:21 | NUR ---
RESTING QUIETLY IN BED. DENIES NEEDS. CALL LIGHT IN REACH
--- NOTE | 2017-01-18 19:30 | NUR ---
PT IS RESTING IN BED WITH EYES OPEN. ALERT AND ORIENTED X 3. DENIES ACUTE PAIN OR DISCOMFORT AT THIS TIME. VSS. O2 IS ON @ 2LPM PER NC. LEFT ARM IS FLACCID. NO NEEDS VOICED. SR'S ARE UP X 3 IN BED. CALL LIGHT AND BEDSIDE TABLE ARE WITHIN EASY REACH.
[2017-01-18 20:00] VITALS: BP 173/91
--- NOTE | 2017-01-18 20:51 | NUR ---
PT IS RESTING QUIETLY IN BED WITH EYES CLOSED. RESPS ARE EVEN AND UNLABORED. NO ACUTE DISTRESS NOTED.
--- NOTE | 2017-01-18 23:18 | NUR ---
PT RESTING IN BED WITH EYES CLOSED.
--- NOTE | 2017-01-19 01:40 | NUR ---
RESTING IN BED, EYES CLOSED. NO DISTRESS EVIDENT.
--- NOTE | 2017-01-19 02:50 | NUR ---
RESTING IN BED WITH EYES CLOSED.
--- NOTE | 2017-01-19 06:03 | NUR ---
PT RESTING IN BED WITH EYES OPEN. NO NEEDS VOICED.
--- NOTE | 2017-01-19 07:44 | NUR ---
RESTING QUIETLY IN BED. EYES CLOSED. BED IN LOW POSITION. SIDE RAILS UP. CALL LIGHT IN REACH
[2017-01-19 08:00] VITALS: BP 152/76
--- NOTE | 2017-01-19 10:21 | NUR ---
RESTING QUIETLY IN BED. IN ROOM WITH PT.
--- NOTE | 2017-01-19 14:55 | NUR ---
SPOKE WITH NATALIA AT [facility] AND PATIENT WILL DISCHARGE THERE 01/21/17 VIA FACILITY VAN. FAMILY AWARE OF PATIENT DISCHARGING DATE. WILL CONTINUE TO FOLLOW WITH PATIENT.
--- NOTE | 2017-01-19 15:07 | NUR ---
SERA WILL BE HERE AT 9:30 ON 01/21/17 TO TRANSPORT PATIENT TO FACILITY.
--- NOTE | 2017-01-19 18:14 | NUR ---
SITTING UP IN BED EATING SUPPER. IN ROOM WITH PT
--- NOTE | 2017-01-19 20:00 | NUR ---
PT IN BED WITH HOB UP FOR COMOFRT. WATCHING TV. ALERT & ORIENTED. NO IV. BED IN LOWEST POSITION AND CALL LIGHT WITHIN REACH.
[2017-01-19 20:41] VITALS: BP 98/62
--- NOTE | 2017-01-20 | NUR ---
PT IN BED WITH HOB UP FOR COMFORT. EYES CLOSED. CHEST RISING AND FALLING. BED IN LOWEST POSITION AND CALL LIGHT WITHIN REACH.
--- NOTE | 2017-01-20 04:00 | NUR ---
PT IN BED WITH HOB UP FOR COMFORT. EYES CLOSED. RESP. EVEN. BED IN LOWEST POSITION AND CALL LIGHT WITHIN REACH.
--- NOTE | 2017-01-20 08:00 | NUR ---
PT AM MEDS ADMINSITERED. PT SITTING UP IN WC. FAMILY AT BEDSIDE. WCTM.
[2017-01-20 08:06] VITALS: BP 141/79
--- NOTE | 2017-01-20 12:30 | NUR ---
PT EATING LUNCH, DENIES NEEDS. WCTM.
--- NOTE | 2017-01-20 13:33 | NUR ---
Nutrition Follow Up: Pt is eating 69% meal avg on a regular [facility] soft diet with thin liquids. +BM 01/16/17. Labs reviewed. Meds noted including Remeron. Rec continue current diet. RD following.
--- NOTE | 2017-01-20 14:26 | NUR ---
PATIENT DISCHRGING TO [facility] 01/21/17, FACILITY VAN WILL TRANSPORT PATIENT. NO DME OR HOME HEALTH NEEDED AT THIS TIME. PATIENT CHOICE FORM FOR SNF AND [facility] FORM SIGNED, EXPLAINED AND FILED IN CHART. PATIENT WILL NEED A FOLLOW UP APPOINTMENT WITH DR. CLEARY WHEN DISCHARGED FORM FACILITY. WILL CONTINUE TO FOLLOW WITH PATIENT.
--- NOTE | 2017-01-20 18:55 | NUR ---
PT SITTING UP IN WC, DENIES NEEDS. FAMILY AT BEDSIDE.
[2017-01-20 20:26] VITALS: BP 148/79
--- NOTE | 2017-01-20 20:26 | NUR ---
RECIEVED IN BED WITH HOB ELEVATED AND SPOUSE AT BEDSIDE. EARLIER SPOUSE ASKED IF HE COULD PACK HER BELONGINGS AND TAKE THEM WITH HIM SINCE SHE WAS LEAVING IN THE MORNING. THIS NURSE TOLD HIM TO MAKE SURE HE GOT EVERYTHING AND HE WOULD PROBALY HAVE TO SIGN SOMETHING SAYING HE RECIEVED HER BELONGINGS. ALS, STATED HE COULD'NT FIND HER GLASSES.
[2017-01-21 08:34] VITALS: BP 182/118
--- NOTE | 2017-01-21 08:50 | NUR ---
PT AM MEDS ADMINISTERED. PT DISCHARGE INSTRUCTIONS REVIEWED AND MEDS REVIEWED. PT FAMILY AT BEDSIDE WAITING FOR STAFF TO ARRIVE FROM FACILITY.
--- NOTE | 2017-01-21 09:45 | NUR ---
STAFF FROM [facility] ARRIVED AND ESCORTED PT OUT VIA WHEELCHAIR. REPORT CALLED TO NAKIA.
== END 2017-01-21 10:33 | DRG 64 ==
LOC: D.REHAB 11:39
PROVIDERS: ADMIT Emergency Medicine
DX: I63.8 Other cerebral infarction (principal); J96.00 Acute respiratory failure, unspecified whether with hypoxia or hypercapnia; G45.0 Vertebro-basilar artery syndrome; I10 Essential (primary) hypertension; M19.90 Unspecified osteoarthritis, unspecified site; I73.9 Peripheral vascular disease, unspecified; J44.9 Chronic obstructive pulmonary disease, unspecified; F32.9 Major depressive disorder, single episode, unspecified; R42 Dizziness and giddiness; E78.5 Hyperlipidemia, unspecified; G62.9 Polyneuropathy, unspecified; Z85.3 Personal history of malignant neoplasm of breast

== ENCOUNTER 2017-03-06 16:34 | Emergency (ER) | payer MEDICARE ==
[2016-12-29 12:15] VITALS: BMI 21.6
[~2017-03-06 16:34] MED LIST changes: +ALENDRONATE SOD70 MG PO; +CRESTOR40 MG PO; +FENOFIBRATE54 MG PO; +LEVAQUIN500 MG PO; +REMERON15 MG PO
[2017-03-06 17:15] LABS: BASOPHILS 0.4 % (0-2); EOSINOPHILS 3.7 % (0-7); HEMATOCRIT 39.9 % (36.0-48.0); HEMOGLOBIN 12.8 g/dL (12-16); IMMATURE GRANULOCYTES 0.1 % (0-5); LYMPHOCYTES 34.7 % (15-50); MCH 26.8 pg (26.0-34.0); MCHC 32.1 g/dL (31.0-37.0); MCV 83.6 fL (80.0-100.0); MEAN PLATELET VOLUME 9.8 fL (7.4-10.4); MONOCYTES 8.1 % (2-11); PLATELET COUNT 253 10x3/uL (130-400); RBC 4.77 10x6/uL (4.00-5.40); RDW 14.5 % (11.5-14.5)
[2017-03-06 17:29] LABS: ALBUMIN 3.9 g/dL (3.4-5.0); ALKALINE PHOSPHATASE 93 U/L (46-116); ALT (SGPT) 39 U/L (10-68); BILIRUBIN - TOTAL 0.18 mg/dL (0.2-1.3); CALC OSMOLALITY 279 mosm/kg (275-300); CALCIUM 9.4 mg/dL (8.5-10.1); CARBON DIOXIDE 25.4 mmol/L (21.0-32.0); CHLORIDE - SERUM 103 mmol/L (98-107); CREATININE - SERUM 0.7 mg/dL (0.6-1.3); GLUCOSE 117 mg/dL (74-106); POTASSIUM - SERUM 4.1 mmol/L (3.5-5.1); PROTEIN - SERUM 7.8 g/dL (6.4-8.2); SODIUM 138 mmol/L (136-145); UREA NITROGEN 21 mg/dL (7-18); eGFR NON AFRICAN AMERICAN 89 mL/min (90-120)
== END 2017-03-06 21:46 | disposition home or self-care (01) ==
LOC: D.ER 16:34
PROVIDERS: Emergency Medicine
DX: J44.9 Chronic obstructive pulmonary disease, unspecified (principal); I25.10 Atherosclerotic heart disease of native coronary artery without angina pectoris; R22.32 Localized swelling, mass and lump, left upper limb; Z86.73 Personal history of transient ischemic attack (TIA), and cerebral infarction without residual deficits

== ENCOUNTER 2017-07-25 16:04 | Emergency (ER) | payer MEDICARE ==
[2016-12-29 12:15] VITALS: BMI 21.6
[2017-07-25 16:57] LABS: BASOPHILS 0.1 % (0-2); EOSINOPHILS 0.5 % (0-7); HEMATOCRIT 42.6 % (36.0-48.0); HEMOGLOBIN 14.3 g/dL (12-16); IMMATURE GRANULOCYTES 0.1 % (0-5); LYMPHOCYTES 13.7 % (15-50); MCH 26.7 pg (26.0-34.0); MCHC 33.6 g/dL (31.0-37.0); MCV 79.6 fL (80.0-100.0); MEAN PLATELET VOLUME 9.9 fL (7.4-10.4); MONOCYTES 5.9 % (2-11); NEUTROPHILS 79.7 % (40-80); PLATELET COUNT 233 10x3/uL (130-400); RBC 5.35 10x6/uL (4.00-5.40); RDW 15.9 % (11.5-14.5); WBC 8.9 10x3/uL (4.8-10.8)
[2017-07-25 17:14] LABS: ALBUMIN 4.1 g/dL (3.4-5.0); ALKALINE PHOSPHATASE 83 U/L (46-116); ALT (SGPT) 28 U/L (10-68); BILIRUBIN - TOTAL 0.56 mg/dL (0.2-1.3); CALC OSMOLALITY 273 mosm/kg (275-300); CALCIUM 8.8 mg/dL (8.5-10.1); CARBON DIOXIDE 22.8 mmol/L (21.0-32.0); CHLORIDE - SERUM 100 mmol/L (98-107); CREATININE - SERUM 0.7 mg/dL (0.6-1.3); GLUCOSE 116 mg/dL (74-106); POTASSIUM - SERUM 3.7 mmol/L (3.5-5.1); PROTEIN - SERUM 8.1 g/dL (6.4-8.2); SODIUM 136 mmol/L (136-145); UREA NITROGEN 16 mg/dL (7-18); eGFR NON AFRICAN AMERICAN 88 mL/min (90-120)
[2017-07-25 18:17] LABS: APPEARANCE CLEAR (CLEAR); BILIRUBIN NEGATIVE (NEGATIVE); COLOR YELLOW (YELLOW); GLUCOSE NEGATIVE (NEGATIVE); KETONE NEGATIVE (NEGATIVE); NITRITE NEGATIVE (NEGATIVE); PROTEIN TRACE mg/dL (NEGATIVE); SPECIFIC GRAVITY 1.015 (1.005-1.020); UROBILINOGEN NORMAL (NORMAL)
[2017-07-25 18:19] LABS: BACTERIA FEW /hpf (NONE SEEN); EPITHELIAL CELLS 0-5 /hpf (0-5); RED CELLS - URINE 0-5 /hpf (0-5)
== END 2017-07-25 19:22 | disposition home or self-care (01) ==
LOC: D.ER 16:04
PROVIDERS: Family Medicine
DX: R50.9 Fever, unspecified (principal); R05 Cough; R11.2 Nausea with vomiting, unspecified; I25.10 Atherosclerotic heart disease of native coronary artery without angina pectoris; J44.9 Chronic obstructive pulmonary disease, unspecified; Z86.73 Personal history of transient ischemic attack (TIA), and cerebral infarction without residual deficits

== ENCOUNTER 2017-10-05 07:38 | Outpatient (CLI) | payer MEDICARE ==
[~2017-10-05] VITALS: Ht 157.5 cm; Wt 61.8 kg
--- NOTE | ~2017-10-05 | HEMODYNAMI ---
PATIENT:BRAXTON DAVIS MEDICAL RECORD: [id number] : 50 LOCATION:[facility] ADMISSION DATE: 10/05/17 Generatedon:10/05/201711:06 Patient name: BRAXTON DAVIS Patient #: [id number] SSN: : 1950 Date of study: 10/05/2017 Page: Of Hemodynamic Procedure Report Patient Data Patient Demographics Procedure consent was obtained First Name: BRAXTON Gender: Female Last Name: RYAN : 1950 Middle Initial: F Age: 67 year(s) Patient #: [id number] Race: Additional ID: [id number] Contact details Address: [address] [place], [place] [address] [place] Zip code: [address] Past Medical History Allergies Allergen Reaction Date Comments Reported Other allergy 11/23/2015 sulfa,codeine Admission Admission Data Admission Date: 10/05/2017 Admission Time: 7:38 Admit Source: Other Procedure Procedure Types Cath Procedure Diagnostic Procedure [facility] w/Coronaries Sedation Charges Moderate Sedation up to 15 minutes PCI Procedure Coronary Stent Coronary Stent Initial Peripheral Cath Diagnostic Procedure Cath Peripheral Ixlyz-Jnrpjzd-Xyh-Off Procedure Description Procedure Date Procedure Date: 10/05/2017 Procedure Start Time: 10:38 Procedure End Time: 11:05 Procedure Staff Name Function Kurt Wharton MD Performing Physician Holley Red RT Monitor Luther Alexander RT Scrub Tyrone Li RN Nurse Procedure Data Cath Procedure Fluoroscopy Diagnostic fluoroscopy Total fluoroscopy Time: 6.9 time: 6.9 min min Diagnostic fluoroscopy Total fluoroscopy dose: 629 dose: 629 mGy mGy Contrast Material Contrast Material Type Amount (ml) Isovue 300 168 Entry Location Entry Primary Successful Side Size Upsize Upsize Entry Closure Succes sful Closure Location (Fr) 1 (Fr) 2 (Fr) Remarks Device Remarks Femoral Left 5 Fr 6 Fr Exoseal artery Short Estimated blood loss: 10 ml Diagnostic catheters Device Type Used For End Catheter Placement MULTIPACK 3DRC 5Fr Right Coronary catheter Angiography MULTIPACK JL 4.0 5Fr catheter MULTIPACK Pigtail 5 Fr LV Angiography catheter MULTIPACK Pigtail 5 Fr Abdominal catheter aortogram with runoff Procedure Complications No complications Procedure Medications Medication Administration Route Dosage Oxygen NC 2 l/min Lidocaine 2% added to field 20 Heparin Flush Bag added to field 2 bags (1000units/500ml NS) 0.9% NaCl I.V. 100 ml/hr Versed I.V. 1 mg Fentanyl I.V. 50 mcg Versed I.V. 1 mg Fentanyl I.V. 50 mcg Versed I.V. 0.5 mg Fentanyl I.V. 25 mcg Heparin Bolus I.V. 4000 units Hemodynamics Rest Heart Rate: 70 (bpm) Snapshots Pre Cath Intra NCS Post Cath Vital Signs Time Heart Resp SPO2 etCO2 NIBP (mmHg) Rhythm Pain Sedation Rate (ipm) (%) (mmHg) Status Level (bpm) 10:24:23 72 17 97 0 143/88(118) NSR 0 (11) 10(A) , No pain 10:35:32 70 16 94 35.3 146/49(0) NSR 0 (11) 10(A) , No pain 10:30:20 78 16 96 12 140/96(124) NSR 0 (11) 10(A) , No pain 10:40:40 78 14 97 15.7 141/82(120) NSR 0 (11) 9(A) , No pain 10:46:40 80 19 98 15 136/87(108) NSR 0 (11) 9(A) , No pain 10:53:54 79 16 98 15 132/80(111) NSR 0 (11) 9(A) , No pain 10:58:35 78 17 98 11.2 107/66(95) NSR 0 (11) 9(A) , No pain 11:03:56 76 15 98 44.4 118/68(87) NSR 0 (11) 10(A) , No pain Medications Time Medication Route Dose Verified Delivered Reason Notes Effectiveness by by 10:34:43 Oxygen NC 2 Kurt Hansen used for l/min Dio Li promotional representative 10:34:50 Lidocaine 2% added 20ml Kurt Hicks for local to vial Dio Wharton MD anesthetic field 10:34:56 Heparin Flush added 2 Kurt Hicks used for Bag to bags Dio Wharton MD procedure (1000units/500ml field NS) 10:35:05 0.9% NaCl I.V. 100 Kurt Buffie Per physician ml/hr Dio Li RN 10:38:03 Versed I.V. 1 mg Kurt Buffie for sedation Dio Li RN 10:38:09 Fentanyl I.V. 50 Kurt Buffie for sedation mcg Dio Li RN 10:44:32 Versed I.V. 1 mg Kurt Buffie for sedation Dio Li RN 10:44:35 Fentanyl I.V. 50 Kurt Buffie for sedation mcg Dio Li RN 10:47:39 Versed I.V. 0.5 Kurt Buffie for sedation mg Dio Li RN 10:47:43 Fentanyl I.V. 25 Kurt Buffie for sedation mcg Dio Li RN 10:51:03 Heparin Bolus I.V. 4000 Kurt Buffie for units Dio Li RN anticoagulation Procedure Log Time Note 10:07:48 Informed consent obtained and on chart 10:07:50 Admit Source: Other 10:08:11 Diagnostic Cath status Elective 10:08:13 Luther Alexander RT(R) sent for patient. Start room use. 10:08:14 Time tracking: Regular hours (M-F 7:00 - 5:00) 10:08:17 Plan of Care:Hemodynamics will remain stable., Cardiac rhythm will remain stable., Comfort level will be maintained., Respiratory function will remain adequate., Patient/ family verbilizes understanding of procedure., Procedure tolerated without complication., Recovers from procedure without complications.. 10:15:01 Patient received from Pre/Post Procedure Room to CCL 1 Alert and oriented. Tansferred to table in Supine position. 10:15:02 Warm blankets applied, and kane hugger turned on for patient comfort. 10:15:02 Correct patient and procedure confirmed by team. 10:15:04 ECG and BP/O2 sat monitors applied to patient. 10:15:05 Full Disclosure recording started 10:23:34 Vital chart was started 10:27:49 Rhythm: sinus rhythm 10:27:51 Baseline sample Acquired. 10:28:02 H&P Date Dictated: 09/22/2017 Within 30 days and on chart., H&P Addendum completed by physician on day of procedure. (MUST COMPLETE FOR ALL OUTPATIENTS). 10:28:03 Pre-procedure instructions explained to patient. 10:28:04 Pre-op teaching completed and patient verbalized understanding. 10:28:07 Family in patients room. 10:28:08 Patient NPO since Midnight. 10:28:25 Is the patient allergic to Iodine/contrast media? No. 10:28:28 Is patient on blood thinner?Yes 10:28:31 ACC The patient was administered the following blood thiners within the last 24 hours: ACCPlavix 10:28:36 Patient diabetic? No. 10:28:44 Previous problem with sedation/anesthesia? No ? 10::46 Snore? Yes 10::47 Sleep apnea? No 10::48 Deviated septum? No 10::49 Opens mouth fully? Yes 10:28:50 Sticks out tongue? Yes 10:28:52 Airway obstruction? Yes COPD 10:28:55 Dentures? No ? 10:29:43 Pre procedure: right dorsailis pedis pulse 1+ Palpable, but thready & weak; easily obliterated 10:29:45 Patient pain scale 0/10 ?. 10:29:52 IV patent on arrival in right wrist with 0.9% NaCl at KVO. 10:29:54 Lab results completed and on chart. 10:29:57 Right groin area was prepped with chlora-prep and draped in sterile fashion 10:29:57 Alarms reviewed by R. N. 10:29:58 Sharps counted by scrub and verified by R.N. 10:30:02 Use device set Femoral Dx 10:30:03 ACIST Syringe (26153) opened to sterile field. 10:30:03 Bag Decanter (2002S) opened to sterile field. 10:30:04 Medline Cath Pack ([id number]) opened to sterile field. 10:30:04 DIAGNOSTIC WIRE .035 260cm J wire (161392) opened to sterile field. 10:30:05 ACIST Hand Control (91284) opened to sterile field. 10:30:05 ACIST Manifold (51313) opened to sterile field. 10:30:06 DIAGNOSTIC Multipack 5Fr catheter set (IJ8912) opened to sterile field. 10:30:06 Tegaderm 4 x 4 (1626W) opened to sterile field. 10:30:07 PERCUTANEOUS ENTRY 19GA needle opened to sterile field. 10:30:08 SHEATH Prelude 5Fr 0.035 (YVD-4V-72-035) opened to sterile field. 10:34:43 Oxygen 2 l/min NC was administered by Tyrone Li RN; used for procedure; 10:34:50 Lidocaine 2% 20ml vial added to field was administered by Kurt Wharton MD; for local anesthetic; 10:34:56 Heparin Flush Bag (1000units/500ml NS) 2 bags added to field was administered by Kurt Wharton MD; used for procedure; 10:35:05 0.9% NaCl 100 ml/hr I.V. was administered by Tyrone Li RN; Per physician; 10:37:40 Final Timeout: patient, procedure, and site verified with staff and physician. All members of the team are in agreement. 10:37:42 Left groin site verified by team. 10:37:50 Physical assessment completed. ASA score P 2 - A patient with mild systemic disease as per Kurt Wharton MD. 10:37:53 Sedation plan: IV Moderate Sedation Medication:Versed, Fentanyl 10:37:56 Zero performed for pressure channel P1 10:38:03 Versed 1 mg I.V. was administered by Tyrone Li RN; for sedation; 10:38:06 Procedure started. 10:38:09 Fentanyl 50 mcg I.V. was administered by Tyrone Li RN; for sedation; 10:38:10 Local anesthetic to left femerol artery with Lidocaine 2% by Kurt Wharton MD.INITIAL ACCESS ONLY 10:40:16 A 5 Fr sheath was inserted into the Left Femoral artery 10:42:41 A MULTIPACK 3DRC 5Fr catheter was advanced over the wire and used for Right Coronary Angiography. 10:42:51 A MULTIPACK JL 4.0 5Fr catheter was advanced over the wire and used for . 10:44:18 Catheter removed. 10:44:32 Versed 1 mg I.V. was administered by Tyrone Li RN; for sedation; 10:44:35 Fentanyl 50 mcg I.V. was administered by Tyrone Li RN; for sedation; 10:45:07 A MULTIPACK Pigtail 5 Fr catheter was advanced over the wire and used for LV Angiography. 10:45:22 LV gram done using BROWN 10:45:24 Injector settings: Ml/sec: 10, Volume: 20, 10:45:37 EF : 60 % 10:45:48 A MULTIPACK Pigtail 5 Fr catheter was advanced over the wire and used for Abdominal aortogram with runoff. 10:45:56 Procedure type changed to Cath procedure, Diagnostic procedure, LHC, LHC w/Coronaries, Sedation Charges, Moderate Sedation up to 15 minutes, PCI procedure, Coronary Stent, Coronary Stent Initial, Peripheral Cath Diagnostic Procedure, Cath Peripheral, Ujjda-Rtwxxtr-Icg-Off 10:47:30 Catheter removed. 10:47:39 Versed 0.5 mg I.V. was administered by Tyrone Li RN; for sedation; 10:47:43 Fentanyl 25 mcg I.V. was administered by Tyrone Li RN; for sedation; 10:50:01 GUIDE 6FR EBU 3.5 SH catheter ([id number]) opened to sterile field. 10:50:05 Use device set TAU PCI 10:50:07 INFLATOR Merit BasixCompak (PN4452) opened to sterile field. 10:50:14 CHOICE PT Extra Support 182cm wire ([id number]) opened to sterile field. 10:50:19 SHEATH Prelude 6Fr 0.035 (VOA-2H-25-035) opened to sterile field. 10:51:03 Heparin Bolus 4000 units I.V. was administered by Tyrone Li RN; for anticoagulation; 10:51:50 Sheath upsized to a 6 Fr Short. 10:52:00 6 Fr EBU 3.5 SH guide catheter was inserted over the wire 10:53:52 CHOICE PT ES wire advanced. 10:55:37 Wire removed. damaged. 10:55:59 CHOICE PT Extra Support 182cm wire ([id number]) opened to sterile field. 10:56:33 NEW CHOICE PT ES wire advanced. 10:59:40 Place stent Inflation Number: 1 A HEATHER RX 2.0 x 12 stent ([id number]) was prepped and advanced across the Dist LAD. The stent was deployed at 15 JUNITO for 0:10 (min:sec). 10:59:53 Inflation number: 2 The stent balloon was then re-inflated across the Dist LAD to 15 JUNITO for 0:07 (min:sec). 11:00:13 Stent catheter was removed intact over wire. 11:00:13 Wire removed. 11:00:13 Guide catheter removed. 11:00:20 Sheath removed intact; hemostasis achieved with Exoseal to the Left Femoral artery. 11:00:22 Procedure ended.(Physican Out) 11:00:30 Fluoroscopy time 06.90 minutes. 11:00:45 Flurop Dose total: 629 11:00:45 Fluoroscopy dose: 629 mGy 11:00:50 Contrast amount:Isovue 300 168ml. 11:00:51 Sharps counted by scrub and verified by R.N. 11:00:53 Insertion/operative site no bleeding no hematoma. 11:00:57 Post-op/insertion site Left Femoral artery dressed using a 4 x 4 and Tegaderm. 11:01:02 Post left femerol artery:stable, clean and dry 11:01:03 Post Procedure Pulses reassessed and unchanged 11:01:43 Post-procedure physical assessment completed. ASA score P 2 - A patient with mild systemic disease as per Kurt Wharton MD. 11:01:45 Post procedure rhythm: unchanged. 11:01:47 Estimated blood loss: 10 ml 11:01:49 Post procedure instruction explained to patient.Patient verbalizes understanding. 11:01:49 Patient needs reinforcement of post procedure teaching. 11:01:57 Procedure Complication : No complications 11:01:59 See physician's report for complete and final results. 11:03:42 EXOSEAL 6Fr (EX600) opened to sterile field. 11:05:40 Procedure and supply charges have been captured, reviewed, submitted and are correct. 11:05:45 Vital chart was stopped 11:05:47 Report given to Pre/Post Procedure Room. 11:05:50 Patient transfered to Pre/Post Procedure Room with Stretcher. 11:05:57 Procedure ended. 11:05:57 Full Disclosure recording stopped 11:05:59 End room use (Document Last) Intervention Summary Intervention Notes Time ActionType Lesion and Equipment Used Action# Pressure Duration Attributes 10:59:40 Place stent Dist LAD HEATHER RX 2.0 x 1 15 00:10 12 stent ([id number]) 10:59:53 Reinflate Dist LAD HEATHER RX 2.0 x 2 15 00:07 stent 12 stent balloon ([id number]) Device Usage Item Name Manufacture Quantity Catalog Number Hospital Part Current Minimal Lot# / Charge Number Stock Stock Serial# Code ACIST Syringe Acist 1 35354 [id number] 351396 053712 20 (04243) Medical Systems Inc Bag Decanter Microtek 1 2001S 799791 91936 924715 5 () Medical Inc. Medline Cath Cardinal 1 [id number] 041126 22847 880979 5 [employer] Health ([id number]) DIAGNOSTIC WIRE [place] 1 548275 578512 484314 588432 30 .035 260cm J wire (164456) ACIST Hand Acist 1 17803 107978 428884 028763 5 Control (69411) Medical Systems Inc ACIST Manifold Acist 1 71658 804417 426235 386783 5 (20603) Medical Systems Boxbe DIAGNOSTIC Cardinal 1 [id number] 170495 83841 720823 30 Multipack 5Fr Health catheter set (MP9947) Tegaderm 4 x 4 3M 1 1626W 245606 027677 418592 5 (1626W) PERCUTANEOUS Cook Medical 1 [id number] 770780 514646 5 ENTRY 19GA needle SHEATH Prelude Merit 1 [id number] 743867 465878 088380 5 5Fr 0.035 Medical ([id number]-9E-[id number]) MULTIPACK 3DRC Cardinal 1 675177 5 5Fr catheter Health MULTIPACK JL Cardinal 1 548297 5 4.0 5Fr Health catheter MULTIPACK Cardinal 1 979601 5 Pigtail 5 Fr Health catheter GUIDE 6FR EBU Medtronic 1 [id number] 090375 52992 821094 1 3.5 SH catheter ([id number]) INFLATOR Merit Merit 1 XX2532 486691 585593 330210 15 [employer] Medical ([id number]) CHOICE PT Extra [place] 2 [id number] 587679 414538 499105 5 Support 182cm Scientific wire ([id number]) SHEATH Prelude Merit 1 PZD-[id number]-[id number] 838910 1037699 155308 5 6Fr 0.035 Medical ([id number]-7Z-93-035) HEATHER RX 2.0 x Medtronic 1 [id number] 703399 1471712 154477 5 [id number] 12 stent ([id number]) EXOSEAL 6Fr Cardinal 1 EX600 177219 878888 948811 10 (EX600) Health Signature Audit [employer] [facility] [facility] Stage Time Signature Unsigned Intra-Procedure 10/05/2017 Holley 11:06:09 AM Counts RT(R) Signatures Monitor : Holley Signature : Counts RT Date : Time : [address] [place] [address]
--- NOTE | ~2017-10-05 | OP ---
PATIENT NAME: BRAXTON DAVIS MEDICAL RECORD: [id number] :50 LOCATION:[facility] ADMISSION DATE: SURGEON: DONALD CARTER MD DATE OF OPERATION: 10/05/2017 PROCEDURES: 1. Aortofemoral runoff. 2. Abdominal aortography. INDICATION: Claudication and peripheral vascular disease. PROCEDURE PERFORMED: After informed consent was obtained and after a detailed description of the risks, benefits as well as alternative therapies, the patient elected to proceed with angiogram and angioplasty. The left femoral area had a preexisting sheath from cardiac intervention. All catheters exchanged through this sheath. FINDINGS: The abdominal aortography was performed. The catheter was pulled down for aortofemoral runoff. Abdominal aortography reveals no significant abdominal aortic disease, no dissection or aneurysm formation. No renal artery stenosis. RIGHT LEG: A. Iliac: The common iliac has previously placed stent with at least 70% in-stent restenosis. Otherwise, the iliacs have only moderate irregularities. B. Femoral system: The common and deep femoral are widely patent. Superficial femoral has previously placed stents, these are patent with up to 30% in-stent restenosis, but no flow-limiting stenosis. C. Popliteal and infrapopliteal vessels are patent, although diffusely diseased, giving 3-vessel runoff to the foot. LEFT LEG: A. Iliac: The common iliac has at least 70% stenosis. The remainder of the iliacs have moderate irregularities, but no flow-limiting stenosis. B. Femoral system: The common and deep femoral are widely patent. Superficial femoral has previously placed stents that are widely patent with moderate in-stent restenosis, but no flow-limiting stenosis. C. Popliteal and infrapopliteal vessels are patent with 3-vessel runoff to the foot, although diffusely diseased. OVERALL IMPRESSION: Significant stenosis of the iliac ostium bilaterally amenable to transcatheter revascularization in the future. TRANSINT:[id number] Voice Confirmation ID: [id number] DOCUMENT ID: [id number] DONALD CARTER MD at 1403 CC: [id number] DICTATION DATE: 10/05/17 1107 DIGITAL SOLUTION ARCHITECT: 10/05/17 1245 DEP CLI 10/05/17 [address] [place] [address]
--- NOTE | ~2017-10-05 | OP ---
PATIENT NAME: BRAXTON DAVIS MEDICAL RECORD: [id number] :50 LOCATION:D.CAT ADMISSION DATE: SURGEON: DONALD CARTER MD DATE OF OPERATION: 10/05/2017 PROCEDURE: 1. PTCA stent LAD. 2. Left heart catheterization. 3. Selective coronary angiography. 4. Left ventriculogram. INDICATION: Angina and coronary artery disease. PROCEDURE IN DETAIL: After informed consent was obtained and after a detailed description of risks, benefits as well as alternative therapies, the patient elected to proceed with angiogram and angioplasty. The left femoral area was prepped and draped in normal sterile fashion. Left femoral artery was cannulated via modified Seldinger technique with placement of 6-Burkinan sheath. All catheters exchanged through this sheath. FINDINGS: The left ventriculogram was performed in standard 30-degree BROWN view, reveals good cardiac wall motion throughout all segments. Overall ejection fraction estimated 60%. SELECTIVE CORONARY ANGIOGRAPHY: 1. Left main is with no significant angiographic disease. Previously placed stent is widely patent. 2. Left anterior descending has previously placed stent as well that is widely patent. However, proximal to this, there is 90+ percent stenosis. 3. The left circumflex is small, nondominant with no significant stenosis. 4. Right coronary artery has at least 80% stenosis times 2. PTCA STENT OF THE LAD: The stent used was a 2.0 x 12 mm Scotty. Result was 0% residual stenosis. OVERALL IMPRESSION: Successful percutaneous transluminal coronary angioplasty stent of the left anterior descending going from 90% initial stenosis to 0% residual. PLAN: For PTCA stent of the RCA in the near future. TRANSINT:[id number] Voice Confirmation ID: [id number] DOCUMENT ID: [id number] DONALD CARTER MD at 1403 CC: [id number] DICTATION DATE: 10/05/17 1107 SOLAR ENERGY INSTALLATION MANAGER: 10/05/17 1246 DEP CLI 10/05/[address] [address]
[2017-10-05] MEDS ORDERED: SPIRIVA (07:56)
[2017-10-05 07:59] VITALS: Ht 157.5 cm; Wt 61.8 kg
[2017-10-05 08:16] LABS: BASOPHILS 0.4 % (0-2); EOSINOPHILS 2.1 % (0-7); HEMATOCRIT 40.9 % (36.0-48.0); HEMOGLOBIN 13.6 g/dL (12-16); IMMATURE GRANULOCYTES 0.1 % (0-5); LYMPHOCYTES 33.7 % (15-50); MCH 26.4 pg (26.0-34.0); MCHC 33.3 g/dL (31.0-37.0); MCV 79.4 fL (80.0-100.0); MEAN PLATELET VOLUME 9.9 fL (7.4-10.4); MONOCYTES 9.8 % (2-11); NEUTROPHILS 53.9 % (40-80); PLATELET COUNT 248 10x3/uL (130-400); RBC 5.15 10x6/uL (4.00-5.40); RDW 16.8 % (11.5-14.5); WBC 8.5 10x3/uL (4.8-10.8)
[2017-10-05 08:47] LABS: CALC OSMOLALITY 282 mosm/kg (275-300); CALCIUM 9.1 mg/dL (8.5-10.1); CHLORIDE - SERUM 104 mmol/L (98-107); CREATININE - SERUM 0.6 mg/dL (0.6-1.3); GLUCOSE 96 mg/dL (74-106); POTASSIUM - SERUM 3.7 mmol/L (3.5-5.1); SODIUM 142 mmol/L (136-145); UREA NITROGEN 13 mg/dL (7-18); eGFR NON AFRICAN AMERICAN > 90 mL/min (90-120)
== END 2017-10-05 15:10 ==
LOC: D.CATH 07:38
PROVIDERS: Internal Medicine Interventional Cardiology
DX: I70.213 Atherosclerosis of native arteries of extremities with intermittent claudication, bilateral legs (principal); I25.119 Atherosclerotic heart disease of native coronary artery with unspecified angina pectoris; Z95.5 Presence of coronary angioplasty implant and graft; Z01.812 Encounter for preprocedural laboratory examination
CPT/HCPCS: 93458; C9600

== ENCOUNTER → 2017-10-12 07:36 | Outpatient (CLI) | payer MEDICARE ==
[~2017-10-12] VITALS: Ht 157.5 cm; Wt 61.8 kg
--- NOTE | ~2017-10-12 | OP ---
PATIENT NAME: BRAXTON DAVIS MEDICAL RECORD: [id number] :50 LOCATION:D.CAT ADMISSION DATE: SURGEON: DONALD CARTER MD DATE OF OPERATION: 10/12/2017 PROCEDURES: 1. PTCA and stent of RCA. 2. Selective coronary angiography. PROCEDURE IN DETAIL: After informed consent was obtained and after detailed explanation of risks, benefits as well as alternative therapies, the patient elected to proceed with angiogram and angioplasty. The left femoral area had a preexisting sheath from peripheral intervention. All catheters exchanged through this sheath. FINDINGS: The right coronary has multiple areas of 80% in-stent restenosis. This was addressed with a 3.0 balloon to high-pressure inflation. Stenting was undertaken at the ostium with a 3.0 x 18 mm [place]. Result was 0% residual stenosis. OVERALL IMPRESSION: Successful PTCA and stent of the RCA going from multiple areas of 80% initial stenosis to 0% residual. 10/12/17 1. 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 2. Bilateral iliac angiography. INDICATION: Claudication and peripheral vascular disease. PROCEDURE IN DETAIL: After informed consent Stable. DISCHARGE risks, benefits as well as alternative therapies, the patient elected disease angiogram and angioplasty. The right and left femoral areas were prepped and draped in normal sterile fashion catheterization sheath. FINDINGS: Both iliacs were greater than 80% stenosis. Both were addressed with 718 Cordis Dolly stents. Result was 0% residual stenosis. OVERALL IMPRESSION: Successful percutaneous transluminal angioplasty stent of both iliacs going from 80% initial stenosis to 0% residual. TRANSINT:[id number] Voice Confirmation ID: [id number] DOCUMENT ID: [id number] DONALD CARTER MD at 1705 CC: [id number] DICTATION DATE: 10/12/17 1037 MILL FEEDER: 10/12/17 1547 [facility] CLI 10/12/17 [place] [id number]
--- NOTE | ~2017-10-12 | HEMODYNAMI ---
PATIENT:BRAXTON DAVIS MEDICAL RECORD: [id number] : 50 LOCATION:SHARON ADMISSION DATE: 10/12/17 Generatedon:10/12/201710:46 Patient name: BRAXTON DAVIS Patient #: [id number] SSN: : 1950 Date of study: 10/12/2017 Page: Of Hemodynamic Procedure Report Patient Data Patient Demographics Procedure consent was obtained First Name: BRAXTON Gender: Female Last Name: RYAN : 1950 Middle Initial: F Age: 67 year(s) Patient #: [id number] Race: Additional ID: [id number] Contact details Address: [address] [place] [address] [place] State: [place] City: [place] Zip code: [address] Past Medical History Allergies Allergen Reaction Date Comments Reported Other allergy 11/23/2015 sulfa,codeine Other allergy 10/12/2017 codeine, sulfa Admission Admission Data Admission Date: 10/12/2017 Admission Time: 7:36 Lab Results Lab Result Date: 10/12/2017 Lab Result Time: 0:00 Biochemistry Name Units Result Min Max BUN mg/dl 13 --(--*-)-- 7 18 Creatinine mg/dl 0.7 --(*---)-- 0.6 1.3 CBC Name Units Result Min Max Hemoglobin g/dl 13.2 -*(----)-- 13.5 17.5 Procedure Procedure Types Cath Procedure Diagnostic Procedure Sedation Charges Moderate Sedation up to 15 minutes PCI Procedure Coronary Stent Coronary Stent Initial Peripheral Cath Diagnostic Procedure Peripheral vascular Intervention Stent Stent Iliac w/plasty Initial Procedure Description Procedure Date Procedure Date: 10/12/2017 Procedure Start Time: 10:05 Procedure End Time: 10:42 Procedure Staff Name Function Kurt Wharton MD Performing Physician Annamarie Valdes RT Monitor Trisha Asif RT Scrub Tyrone Li RN Nurse Procedure Data Cath Procedure Fluoroscopy Diagnostic fluoroscopy Total fluoroscopy Time: 8.6 time: 8.6 min min Diagnostic fluoroscopy Total fluoroscopy dose: 530 dose: 530 mGy mGy Contrast Material Contrast Material Type Amount (ml) Isovue 300 151 Entry Location Entry Primary Successful Side Size (Fr) Upsize Upsize Entry Closure S uccessful Closure Location 1 (Fr) 2 (Fr) Remarks Device Remarks Femoral Right 6 Fr 6 Fr Exoseal artery Mid-Length Short Femoral Left 7 Fr 7 Fr Exoseal artery Mid-Length Short Estimated blood loss: 10 ml Procedure Medications Medication Administration Route Dosage Oxygen NC 2 l/min Lidocaine 1% added to field 20 Heparin Flush Bag added to field 2 bags (1000units/500ml NS) 0.9% NaCl I.V. 100 ml/hr Versed I.V. 1 mg Fentanyl I.V. 50 mcg Versed I.V. 1 mg Fentanyl I.V. 50 mcg Heparin Bolus I.V. 5000 units Versed I.V. 0.5 mg Fentanyl I.V. 25 mcg Versed I.V. 1 mg Fentanyl I.V. 50 mcg Hemodynamics Rest HGB: 13.2 (g/dl) Heart Rate: 74 (bpm) Snapshots Pre Cath Intra NCS Post Cath Vital Signs Time Heart Resp SPO2 etCO2 NIBP Rhythm Pain Sedation Rate (ipm) (%) (mmHg) (mmHg) Status Level (bpm) 9:54:29 78 31 93 0 123/80(90) NSR 0 (11) 10(A) , No pain 9:58:37 74 23 94 0 125/72(99) NSR 0 (11) 10(A) , No pain 10:02:44 72 18 95 28.3 126/75(96) NSR 0 (11) 10(A) , No pain 10:07:43 68 12 95 16.4 Measuring NSR 0 (11) 9(A) , No pain 10:09:07 68 19 94 18.6 110/71(0) NSR 0 (11) 9(A) , No pain 10:15:28 81 14 94 0.7 112/64(0) NSR 0 (11) 9(A) , No pain 10:19:40 79 15 97 0 101/67(81) NSR 0 (11) 9(A) , No pain 10:23:44 80 13 99 8.2 94/61(81) NSR 0 (11) 9(A) , No pain 10:27:44 81 17 99 8.9 92/64(74) NSR 0 (11) 9(A) , No pain 10:34:07 81 16 98 11.2 98/62(0) NSR 0 (11) 10(A) , No pain 10:44:40 95 30.6 Time NSR 0 (11) 10(A) Exceeded , No pain Medications Time Medication Route Dose Verified Delivered Reason Notes Effectiveness by by 10:02:17 Oxygen NC 2 Kurt Buffie used for l/min Dio Li RN procedure 10:02:29 Lidocaine 1% added 20ml Kurt Kurt for local to vial Dio Wharton MD anesthetic field 10:02:37 Heparin Flush added 2 Kurt Kurt used for Bag to bags Dio Wharton MD procedure (1000units/500ml field NS) 10:02:45 0.9% NaCl I.V. 100 Kurt Buffie Per physician ml/hr Dio Li RN 10:03:51 Versed I.V. 1 mg Kurt Buffie for sedation Dio Li RN 10:03:57 Fentanyl I.V. 50 Kurt Buffie for sedation mcg Dio Li RN 10:07:17 Versed I.V. 1 mg Kurt Buffie for sedation Dio Li RN 10:07:21 Fentanyl I.V. 50 Kurt Buffie for sedation mcg Dio Li RN 10:11:45 Versed I.V. 0.5 Kurt Buffie for sedation mg Dio Li RN 10:11:49 Fentanyl I.V. 25 Kurt Buffie for sedation mcg Dio Li RN 10:13:17 Heparin Bolus I.V. 5000 Kurt Buffie for verifi ed units Dio Li RN anticoagulation with dr wharton 10:28:36 Versed I.V. 1 mg Kurt Buffie for sedation Dio Li RN 10:28:41 Fentanyl I.V. 50 Kurt Buffie for sedation mcg Dio Li RN Procedure Log Time Note 9:40:13 Annamarie Valdes RT(R) sent for patient. Start room use. 9:52:51 Informed consent obtained and on chart 9:52:56 Diagnostic Cath Status : Elective 9:53:20 Time tracking: Regular hours (M-F 7:00 - 5:00) 9:53:24 Plan of Care:Hemodynamics will remain stable., Cardiac rhythm will remain stable., Comfort level will be maintained., Respiratory function will remain adequate., Patient/ family verbilizes understanding of procedure., Procedure tolerated without complication., Recovers from procedure without complications.. 9:53:30 Patient received from Pre/Post Procedure Room to CCL 2 Alert and oriented. Tansferred to table in Supine position. 9:53:31 Warm blankets applied, and kane hugger turned on for patient comfort. 9:53:32 Correct patient and procedure confirmed by team. 9:53:32 ECG and BP/O2 sat monitors applied to patient. 9:53:33 Vital chart was started 9:56:28 Baseline sample Acquired. 9:56:35 Rhythm: sinus rhythm 9:56:37 Full Disclosure recording started 9:57:18 H&P Date Dictated: 09/22/2017 Within 30 days and on chart., H&P Addendum completed by physician on day of procedure. (MUST COMPLETE FOR ALL OUTPATIENTS). 9:57:20 Pre-procedure instructions explained to patient. 9:57:22 Family in waiting room. 9:57:23 Patient NPO since Midnight. 9:57:45 Patient allergic to Other allergycodeine, sulfa 9:57:50 Is the patient allergic to Iodine/contrast media? No. 9:58:00 Was the patient premedicated? Yes 9:58:01 Is patient on blood thinner?Yes 9:58:05 ACC The patient was administered the following blood thiners within the last 24 hours: ACCPlavix 9:58:09 Patient diabetic? No. 9:58:14 Snore? Yes 9:58:16 Sleep apnea? No 9:58:21 Dentures? No ? 10:01:48 IV patent on arrival in left forearm with 0.9% NaCl at O. 10:02:17 Oxygen 2 l/min NC was administered by Tyrone Li RN; used for procedure; 10:02:20 Lab Result : BUN 13 mg/dl 10:02:20 Lab Result : Hemoglobin 13.2 g/dl 10:02:20 Lab Result : Creatinine 0.7 mg/dl 10:02:26 Lab results completed and on chart. 10:02:29 Lidocaine 1% 20ml vial added to field was administered by Kurt Wharton MD; for local anesthetic; 10:02:31 Bilateral groins area was prepped with chlora-prep and draped in sterile fashion 10:02:33 Alarms reviewed by R. N. 10:02:33 Sharps counted by scrub and verified by R.N. 10:02:34 Physician paged 10:02:37 Heparin Flush Bag (1000units/500ml NS) 2 bags added to field was administered by Kurt Wharton MD; used for procedure; 10::37 Physician arrived 10:02:38 --------ALL STOP TIME OUT------ 10::39 Final Timeout: patient, procedure, and site verified with staff and physician. All members of the team are in agreement. 10:02:41 Bilateral groins site verified by team. 10:02:45 0.9% NaCl 100 ml/hr I.V. was administered by Tyrone Li RN; Per physician; 10:02:45 Physical assessment completed. ASA score P 2 - A patient with mild systemic disease as per Kurt Wharton MD. 10:02:49 Sedation plan: IV Moderate Sedation Medication:Versed, Fentanyl 10:03:00 Use device set Femoral Dx 10:03:51 Versed 1 mg I.V. was administered by Tyrone Li RN; for sedation; 10:03:57 Fentanyl 50 mcg I.V. was administered by Tyrone Li RN; for sedation; 10:03:59 ACIST Syringe (23973) opened to sterile field. 10:04:00 Bag Decanter (2001S) opened to sterile field. 10:04:01 Medline Cath Pack ([id number]) opened to sterile field. 10:04:01 DIAGNOSTIC WIRE .035 260cm J wire (578503) opened to sterile field. 10:04:03 ACIST Hand Control (75724) opened to sterile field. 10:04:03 ACIST Manifold (50159) opened to sterile field. 10:04:05 Tegaderm 4 x 4 (1626W) opened to sterile field. 10:04:07 PERCUTANEOUS ENTRY 19GA needle opened to sterile field. 10:04:27 SHEATH 7FR [place] (DLJ077) opened to sterile field. 10:04:28 SHEATH 6Fr Prelude ([id number]) opened to sterile field. 10:05:29 Procedure started. 10:05:38 Local anesthetic to right femoral artery with Lidocaine 1% by Kurt Wharton MD.INITIAL ACCESS ONLY 10:07:17 Versed 1 mg I.V. was administered by Tyrone Li RN; for sedation; 10:07:21 Fentanyl 50 mcg I.V. was administered by Tyrone Li RN; for sedation; 10:08:50 INFLATOR Merit BasixCompak (JX9681) opened to sterile field. 10:08:51 DIAGNOSTIC WIRE .035 260cm J wire (445026) opened to sterile field. 10:09:03 A 6 Fr Mid-Length sheath was inserted into the Right Femoral artery 10:09:15 Local anesthetic to left femerol artery with Lidocaine 1% by Kurt Wharton MD.ADDITIONAL ACCESS 10:09:49 Zero performed for pressure channel P1 10:11:22 MAGIC TORQUE 180cm 0.035 wire ([id number]) opened to sterile field. 10:11:45 Versed 0.5 mg I.V. was administered by yTrone Li RN; for sedation; 10:11:49 Fentanyl 25 mcg I.V. was administered by Tyrone Li RN; for sedation; 10:11:58 Magic Torque wire advanced for long sheath in left femoral artery 10:13:06 A 7 Fr Mid-Length sheath was inserted into the Left Femoral artery 10:13:17 Heparin Bolus 5000 units I.V. was administered by Tyrone Li RN; for anticoagulation; verified with dr wharton 10:13:21 SHEATH 7FR ARROW 45cm ([id number]) opened to sterile field. 10:14:21 SHEATH 6FR Brite Tip 35cm ([id number]) opened to sterile field. 10:16:57 Jwire to both illiacs wire advanced. 10:17:55 Wire advanced across lesion. 10:19:04 Procedure type changed to Cath procedure, Diagnostic procedure, Sedation Charges, Moderate Sedation up to 15 minutes, PCI procedure, Coronary Stent, Coronary Stent Initial, Peripheral Cath Diagnostic Procedure, Peripheral vascular Intervention, Stent, Stent Iliac w/plasty Initial 10:19:46 Place stent Inflation Number: 1 A JOANNA 7 x 18 x 135 stent ([id number]) was prepped and advanced across the Mid Common Iliac, Right. The stent was deployed at 11 JUNITO for 0:04 (min:sec). 10:20:07 Stent catheter was removed intact over wire. 10:21:00 Place stent Inflation Number: 1 A JOANNA 7 x 18 x 135 stent ([id number]) was prepped and advanced across the Mid Common Iliac, Left. The stent was deployed at 11 JUNITO for 0:08 (min:sec). 10:21:39 7 Fr AR2 guide catheter was inserted over the wire 10:22:38 CHOICE PT Extra Support 182cm wire ([id number]) opened to sterile field. 10:22:39 GUIDE 7FR AR 2.0 catheter ([id number]) opened to sterile field. 10:22:58 Choice PT EX wire advanced. 10:25:10 Inflate balloon Inflation number: 1 A EUPHORA 3.0 x 30 Balloon ([id number]) was prepped and advanced across the Mid RCA, then inflated to 17 JUNITO for 0:11 (min:sec). 10:25:22 Inflation number: 2 The EUPHORA 3.0 x 30 Balloon ([id number]) was reinflated across the Mid RCA, to 17 JUNITO for 0:07 (min:sec). 10:25:49 Balloon removed over the wire. 10:27:37 Place stent Inflation Number: 3 A HEATHER RX 3.0 x 18 stent ([id number]) was prepped and advanced across the Mid RCA. The stent was deployed at 19 JUNITO for 0:09 (min:sec). 10:28:36 Versed 1 mg I.V. was administered by Tyrone Li RN; for sedation; 10:: Fentanyl 50 mcg I.V. was administered by Tyrone Li RN; for sedation; 10:29:23 Stent catheter was removed intact over wire. 10::55 Sheath upsized to a 6 Fr Short. 10::55 Sheath removed intact; hemostasis achieved with Exoseal to the Right Femoral artery. 10:30:05 Sheath removed intact; hemostasis achieved with Exoseal to the Left Femoral artery. 10:30:05 Sheath upsized to a 7 Fr Short. 10:36:09 Procedure ended.(Physican Out) 10:36:31 Fluoroscopy time 08.60 minutes. 10:36:35 Fluoroscopy dose: 530 mGy 10:36:35 Flurop Dose total: 530 10:36:48 Contrast amount:Isovue 300 151ml. 10:36:49 Sharps counted by scrub and verified by R.N. 10:36:51 Insertion/operative site no bleeding no hematoma. 10:36:55 Post-op/insertion site Right Femoral artery dressed using a 4 x 4 and Tegaderm. 10:36:58 Post-op/insertion site Left Femoral artery dressed using a 4 x 4 and Tegaderm. 10:37:12 Post-procedure physical assessment completed. ASA score P 3 - A patient with severe systemic disease as per Kurt Wharton MD. 10:37:16 Post procedure rhythm: unchanged. 10:37:19 Estimated blood loss: 10 ml 10:37:21 Post procedure instruction explained to patient.Patient verbalizes understanding. 10:38:03 Procedure and supply charges have been captured, reviewed, submitted and are correct. 10:42:23 End room use (Document Last) 10:42:41 Procedure ended. 10:42:41 Full Disclosure recording stopped 10:42:51 Vital chart was stopped 10:42:53 See physician's report for complete and final results. 10:42:58 Report given to Pre/Post Procedure Room. Intervention Summary Intervention Notes Time ActionType Lesion and Equipment Used Action# Pressure Duration Attributes 10:19:46 Place stent Mid Common OJANNA 7 x 18 1 11 00:04 Iliac, x 135 stent Right ([id number]) 10:21:00 Place stent Mid Common JOANNA 7 x 18 1 11 00:08 Iliac, Left x 135 stent ([id number]) 10:25:10 Inflate Mid RCA EUPHORA 3.0 x 1 17 00:11 balloon 30 Balloon ([id number]) 10:25:22 Reinflate Mid RCA EUPHORA 3.0 x 2 17 00:07 balloon 30 Balloon ([id number]) 10:27:37 Place stent Mid RCA HEATHER RX 3.0 x 3 19 00:09 18 stent ([id number]) Device Usage Item Name Manufacture Quantity Catalog Number Hospital Part Current M inimal Lot# / Charge Number Stock Stock Serial# Code ACIST Syringe Acist 1 27244 189302 315541 093473 2 0 (65017) [employer] Inc Bag Decanter Microtek 1 530956 39087 920951 5 (2002S) Medical Inc. Medline Cath Cardinal 1 [id number] 552173 99014 012194 5 Pack Health ([id number]) DIAGNOSTIC [facility] [place] 2 090308 089193 494066 540351 3 0 WIRE .035 260cm J wire (990433) ACIST Hand Acist 1 92588 780387 269704 360243 5 Control Medical (77994) Systems Inc ACIST Manifold Acist 1 92798 661413 691646 964446 5 (77187) Medical Systems Inc Tegaderm 4 x 4 3M 1 1626W 288231 455333 350215 5 (1626W) PERCUTANEOUS Cook Medical 1 [id number] 972721 344089 5 ENTRY 19GA needle SHEATH 7FR Terumo 1 SPE706 998698 189644 436348 5 [place] (MOD603) SHEATH 6Fr Merit 1 [id number] 744713 989443 944016 5 Prelude Medical ([id number]) INFLATOR Merit Merit 1 DP1230 068809 942922 609969 1 5 [place] (WP2360) MAGIC TORQUE [place] 1 [id number] 340634 321085 284855 1 180cm 0.035 Scientific wire ([id number]) SHEATH 7FR Teleflex 1 CL-96918 682652 798359 447783 1 ARROW 45cm ([id number]) SHEATH 6FR Cardinal 1 [id number] 395695 407315 984089 1 Brite Tip 35cm Health (135556B) JOANNA 7 x 18 Cardinal 2 [id number] 929730 319985 5 [id number] x 135 stent Health [id number] ([id number]) CHOICE PT [place] 1 [id number] 636096 589495 672313 5 Extra Support Scientific 182cm wire ([id number]) GUIDE 7FR AR Medtronic 1 [id number] 459598 965507 879256 0 2.0 catheter (JJ0CX18) EUPHORA 3.0 x Medtronic 1 [id number] 831246 248575 851749 5 [id number] 30 Balloon ([id number]) HEATHER RX 3.0 x Medtronic 1 [id number] 183897 8417686 510280 5 [id number] 18 stent ([id number]) Signature Audit [place] Stage Time Signature Unsigned Intra-Procedure 10/12/2017 Annamarie Valdes 10:46:27 AM RT(R) Signatures Monitor : Annamarie Valdes Signature : RT Date : Time : [address] [address]
--- NOTE | ~2017-10-12 | OP ---
PATIENT NAME: BRAXTON DAVIS MEDICAL RECORD: [id number] :50 LOCATION:D.CAT ADMISSION DATE: SURGEON: DONALD CARTER MD DATE OF OPERATION: 10/12/2017 PROCEDURE: 1. FORMS EXAMINER stent, bilateral iliacs. 2. Bilateral iliac angiography. INDICATION: Claudication and peripheral vascular disease. PROCEDURE IN DETAIL: After informed consent was obtained and after a detailed description of risks, benefits as well as alternative therapies, the patient elected to proceed with angiogram and angioplasty. The right and left femoral areas were prepped and draped in normal sterile fashion. All catheters exchanged through this sheath. FINDINGS: Both iliacs were greater than 80% stenosed. Both were addressed with 7 x 18 Cordis Dolly stents. Result was 0% residual stenosis. OVERALL IMPRESSION: Successful percutaneous transluminal angioplasty stent of both iliacs going from 80% initial stenosis to 0% residual. TRANSINT:[id number] Voice Confirmation ID: [id number] DOCUMENT ID: [id number] DONALD CARTER MD at 1705 CC: [id number] DICTATION DATE: 10/12/17 1037 EXECUTIVE LEGAL SECRETARY: 10/12/17 1359 DEP CLI 10/12/17 [place] [id number] [place] [address]
--- NOTE | ~2017-10-12 | HP ---
PATIENT: BRAXTON DAVIS MEDICAL RECORD: [id number] ACCOUNT: [id number] LOCATION:SHARON : 50 ADMISSION DATE: 10/12/17 HISTORY AND PHYSICAL EXAMINATION ADMITTING DIAGNOSES: 1. Angina. 2. Coronary artery disease. 3. PTCA stent to LAD with concomitant disease to RCA. 4. Peripheral vascular disease. 5. Claudication. 6. Hypertension. 7. Hyperlipidemia. HISTORY OF PRESENT ILLNESS: Mrs. Davis presents with unstable anginal symptomatology and claudication, found to have bilateral iliac disease as well as 2-vessel coronary artery disease, underwent successful PTCA stent of the LAD. He is now brought back for bilateral iliac intervention as well as PTCA stent of the RCA. PHYSICAL EXAMINATION: GENERAL APPEARANCE: Well-nourished, well-developed, appears stated age. Level of distress, comfortable. PSYCHIATRIC: Mental status, alert, normal affect. Orientation, oriented to time, place and person. EYES: Lids and conjunctiva, noninjected. No discharge, no pallor. ENT: Lips, teeth, gums, normal dentition. Oropharynx, no cyanosis, no pallor. NECK: Carotid arteries, bilateral normal upstroke, no bruits, no thrills. JUGULAR VEINS: No jugular venous pressure or distention. CERVICAL LYMPH NODES: Nontender, nonenlarged. THYROID: Not enlarged. Nontender. No nodules. LUNGS: Respiratory effort, unlabored. CHEST: Normal curvature. No thoracic deformity. No chest wall tenderness. Percussion, resonant. Auscultation, clear. No wheezes, no rales, no rhonchi. CARDIOVASCULAR: Precordial exam, nondisplaced. No heaves or pericardial thrills. Rate and rhythm, regular. Heart sounds, normal S1, normal S2. No S3, no gallop, no rub. Systolic murmur, not heard. Diastolic murmur, not heard. EXTREMITIES: No cyanosis, no edema. Peripheral pulses, full and equal in all extremities, except as noted. No bruits appreciated. ABDOMEN: Soft, nondistended. Normal aorta. No bruit. Nontender. No masses. Liver, nontender, no hepatomegaly. Spleen, nontender, no splenomegaly. MUSCULOSKELETAL: No joint tenderness. No joint swelling. No erythema. NEUROLOGICAL: Normal gait, normal strength, normal tone. SKIN: Warm and dry. REVIEW OF SYSTEMS: The patient reports easy bruising but reports no swollen glands. The patient reports no fever, no night sweats, no significant weight gain, no significant weight loss. No significant exercise tolerance. The patient reports no dry eyes, no irritation, no vision change. Patient reports no difficulty hearing and no ear pain. Patient reports no frequent nose bleeds or nose and sinus problems. Patient reports on arm pain on exertion. No shortness of breath while lying down. No history of heart murmur. Patient reports no cough, no wheezing or coughing up blood. Patient reports no abdominal pain, no vomiting. Normal appetite. No diarrhea and not vomiting blood. No nausea and no constipation. Patient reports no incontinence. No HISTORY AND PHYSICAL [id number] [id number] difficulty urinating. No hematuria. No increased frequency. Patient reports no muscle aches. No weakness, no arthralgias, no back pain. No swelling of the extremities. Patient reports no abnormal mole, no jaundice, no rashes. Reports no loss of consciousness. No weakness and no numbness. No seizures, dizziness, or headaches. The patient reports no depression, no sleep disturbance, feeling safe in a relationship and no alcohol abuse. Patient reports on fatigue. Reports no runny nose or sinus pressure. No itching, no hives, and no frequent sneezing. OVERALL IMPRESSION: Anginal symptomatology with significant disease to RCA. We will proceed with PTCA stent of the RCA. TRANSINT:[id number] Voice Confirmation ID: [id number] DOCUMENT ID: [id number] DONALD CARTER MD at 1705 CC: [id number] DICTATION DATE: 10/12/17930 CHEMICAL PROJECT ENGINEER: 10/12/17 1057 DEP CLI 10/12/17 [place] [id number]
[~2017-10-12 07:36] MED LIST changes: +SPIRIVA
[2017-10-12 07:42] VITALS: BP 120/71; Ht 157.5 cm; Wt 61.8 kg
[2017-10-12 08:01] LABS: BASOPHILS 0.3 % (0-2); HEMATOCRIT 39.5 % (36.0-48.0); HEMOGLOBIN 13.2 g/dL (12-16); IMMATURE GRANULOCYTES 0.1 % (0-5); MCH 26.5 pg (26.0-34.0); MCHC 33.4 g/dL (31.0-37.0); MCV 79.2 fL (80.0-100.0); MEAN PLATELET VOLUME 10.1 fL (7.4-10.4); MONOCYTES 10.9 % (2-11); NEUTROPHILS 58.7 % (40-80); PLATELET COUNT 225 10x3/uL (130-400); RBC 4.99 10x6/uL (4.00-5.40); RDW 17.3 % (11.5-14.5); WBC 8.7 10x3/uL (4.8-10.8)
[2017-10-12 08:12] LABS: CALC OSMOLALITY 277 mosm/kg (275-300); CALCIUM 9.3 mg/dL (8.5-10.1); CARBON DIOXIDE 25.6 mmol/L (21.0-32.0); CHLORIDE - SERUM 103 mmol/L (98-107); CREATININE - SERUM 0.7 mg/dL (0.6-1.3); GLUCOSE 106 mg/dL (74-106); POTASSIUM - SERUM 3.8 mmol/L (3.5-5.1); SODIUM 139 mmol/L (136-145); UREA NITROGEN 13 mg/dL (7-18); eGFR NON AFRICAN AMERICAN 88 mL/min (90-120)
== END | disposition home or self-care (01) ==
LOC: D.CATH 07:36
PROVIDERS: Internal Medicine Interventional Cardiology
DX: I25.119 Atherosclerotic heart disease of native coronary artery with unspecified angina pectoris (principal); T82.855A Stenosis of coronary artery stent, initial encounter; I70.213 Atherosclerosis of native arteries of extremities with intermittent claudication, bilateral legs; I10 Essential (primary) hypertension; E78.5 Hyperlipidemia, unspecified
CPT/HCPCS: 37221; C9600

== ENCOUNTER → 2017-10-29 07:55 | Outpatient (CLI) | payer MEDICARE ==
[2017-10-12 07:42] VITALS: BMI 24.9
== END | disposition home or self-care (01) ==
LOC: D.RT 07:55
DX: J45.909 Unspecified asthma, uncomplicated (principal)

== ENCOUNTER 2017-12-19 18:22 | Outpatient (CLI) | payer MEDICARE ==
[~2017-12-19] VITALS: Ht 157.5 cm; Wt 61.8 kg
--- NOTE | ~2017-12-19 | HEMODYNAMI ---
PATIENT:BRAXTON DAVIS MEDICAL RECORD: [id number] : 50 LOCATION[facility] [id number] ADMISSION DATE: 12/19/17 Generatedon:12/21/20178:50 Patient name: BRAXTON DAVIS Patient #: [id number] SSN: : 1950 Date of study: 12/21/2017 Page: Of Hemodynamic Procedure Report Patient Data Patient Demographics Procedure consent was obtained First Name: BRAXTON Gender: Female Last Name: RYAN : 1950 [facility] Initial: F Age: 67 year(s) Patient #: [id number] Race: Additional ID: [id number] Contact details [address]: [address] [place] [address] [place] State: [place] City: [place] Zip code: [address] Past Medical History Allergies Allergen Reaction Date Comments Reported Other allergy 11/23/2015 sulfa,codeine Other allergy 10/12/2017 codeine, sulfa Sulfa drugs 12/21/2017 Codeine 12/21/2017 Admission Admission Data Admission Date: 12/19/2017 Admission Time: 20:43 Admit Source: Emergency department Room #: D.2121 Lab Results Lab Result Date: 12/21/2017 Lab Result Time: 0:00 Biochemistry Name Units Result Min Max BUN mg/dl 15 --(--*-)-- 7 18 Creatinine mg/dl 0.6 --(*---)-- 0.6 1.3 CBC Name Units Result Min Max Hemoglobin g/dl 13.1 -*(----)-- 13.5 17.5 Procedure Procedure Types Cath Procedure Diagnostic Procedure LHC LHC w/Coronaries PCI Procedure Coronary Stent Coronary Stent Initial Peripheral Cath Diagnostic Procedure Cath Peripheral Lqxha-Jefaibo-Qpo-Off Peripheral vascular Intervention Stent Stent Iliac w/plasty Initial Procedure Description Procedure Date Procedure Date: 12/21/2017 Procedure Start Time: 8:14 Procedure End Time: 8:49 Procedure Staff Name Function Kurt Wharton MD Performing Physician Franki Montalvo RT Monitor Gabrielle Kamar RT Scrub Kevin Noyola RN Nurse Procedure Data Cath Procedure Fluoroscopy Diagnostic fluoroscopy Total fluoroscopy Time: 8.8 time: 8.8 min min Diagnostic fluoroscopy Total fluoroscopy dose: 564 dose: 564 mGy mGy Contrast Material Contrast Material Type Amount (ml) Isovue 300 131 Entry Location Entry Primary Successful Side Size Upsize 1 Upsize Entry Closure Jensen ccessful Closure Location (Fr) (Fr) 2 (Fr) Remarks Device Remarks Femoral Left 5 Fr 6 Fr 6 Fr Exoseal artery Mid-Length Short Diagnostic catheters Device Type Used For End Catheter Placement MULTIPACK 3DRC 5Fr Right Coronary catheter Angiography MULTIPACK Pigtail 5 Fr LV Angiography catheter MULTIPACK JL 4.0 5Fr Left Coronary catheter Angiography Procedure Complications No complications Procedure Medications Medication Administration Route Dosage 0.9% NaCl I.V. 100 ml/hr Oxygen etCO2 Nasal cannula 2 l/min Heparin Flush Bag added to field 2 bags (1000units/500ml NS) Lidocaine 2% added to field 20 Versed I.V. 2 mg Fentanyl I.V. 100 mcg Versed I.V. 1 mg Heparin Bolus I.V. 5000 units Versed I.V. 1 mg Hemodynamics Rest HGB: 13.1 (g/dl) Heart Rate: 76 (bpm) Snapshots Pre Cath Intra NCS Post Cath Vital Signs Time Heart Resp SPO2 etCO2 NIBP Rhythm Pain Sedation Rate (ipm) (%) (mmHg) (mmHg) Status Level (bpm) 7:57:13 82 18 97 29.9 145/77(97) NSR 0 (11) 10(A) , No pain 8:01:54 79 17 96 26.1 117/66(91) NSR 0 (11) 10(A) , No pain 8:06:28 75 14 95 19.4 113/63(79) NSR 0 (11) 10(A) , No pain 8:15:45 78 15 96 30.6 111/67(82) NSR 0 (11) 10(A) , No pain 8:24:52 77 19 96 16.4 83/47(68) NSR 0 (11) 9(A) , No pain 8:29:51 74 19 96 17.9 115/61(0) NSR 0 (11) 9(A) , No pain 8:30:55 74 15 94 0 117/64(0) NSR 0 (11) 9(A) , No pain 8:35:54 75 14 96 0 111/64(0) NSR 0 (11) 9(A) , No pain 8:36:04 75 19 94 33.6 114/68(0) NSR 0 (11) 9(A) , No pain 8:40:40 73 17 95 32.9 97/63(75) NSR 0 (11) 10(A) , No pain 8:45:09 74 14 94 26.9 98/64(80) NSR 0 (11) 10(A) , No pain Medications Time Medication Route Dose Verified Delivered Reason Notes Effectiveness by by 7:59:38 0.9% NaCl I.V. 100 Kevin Kevin Per physician ml/hr Dennys Noyola RN RN 7:59:48 Oxygen etCO2 2 Kevin Kevin Per physician Nasal l/min Dennys Noyola cannula RN RN 7:59:59 Heparin Flush added 2 Kevin Kevin used for Bag to bags Dennys Noyola procedure (1000units/500ml field RN RN NS) 8:00:08 Lidocaine 2% added 20ml Kevin Kevin for local to vial Dennys Noyola anesthetic field RN RN 8:14:32 Versed I.V. 2 mg Kevin Kevin for sedation Dennys Noyola RN RN 8:14:41 Fentanyl I.V. 100 Kevin Kevin for sedation mcg Dennys Noyola RN RN 8:18:39 Versed I.V. 1 mg Kevin Kevin for sedation Dennys Noyola RN RN 8:27:09 Heparin Bolus I.V. 5000 Kevin Kevin for units Dennys Noyola anticoagulation RN RN 8:45:26 Versed I.V. 1 mg Kevin Kevin for sedation Dennys Noyola RN tile mason Log Time Note 7:39:41 Signed procedure consent form obtained from spouse. 7:39:52 H&P Date Dictated: 12/19/2017 Within 30 days and on chart.. 7:40:46 Lab Result : Hemoglobin 13.1 g/dl 7:40:46 Lab Result : Creatinine 0.6 mg/dl 7:40:46 Lab Result : BUN 15 mg/dl 7:41:38 Franki RODRIGUEZ(R) sent for patient. Start room use. 7:56:19 Vital chart was started 7:59:38 0.9% NaCl 100 ml/hr I.V. was administered by Kevin Noyola RN; Per physician; 7:59:48 Oxygen 2 l/min etCO2 Nasal cannula was administered by Kevin Noyola RN; Per physician; 7:59:59 Heparin Flush Bag (1000units/500ml NS) 2 bags added to field was administered by Kevin Noyola RN; used for procedure; 8:00:08 Lidocaine 2% 20ml vial added to field was administered by Kevin Noyola RN; for local anesthetic; 8:06:01 Admit Source: Emergency department 8:06:04 Diagnostic Cath status Elective 8:06:06 Time tracking: Regular hours (M-F 7:00 - 5:00) 8:06:10 Plan of Care:Hemodynamics will remain stable., Cardiac rhythm will remain stable., Comfort level will be maintained., Respiratory function will remain adequate., Patient/ family verbilizes understanding of procedure., Procedure tolerated without complication., Recovers from procedure without complications.. 8:09:04 Patient received from PCU to CCL 1 Alert and oriented. Tansferred to table in Supine position. 8:09:05 Warm blankets applied, and kane hugger turned on for patient comfort. 8:09:06 Correct patient and procedure confirmed by team. 8:09:07 Baseline sample Acquired. 8:09:07 ECG and BP/O2 sat monitors applied to patient. 8:09:10 Rhythm: sinus rhythm 8:09:11 Full Disclosure recording started 8:09:13 Pre-procedure instructions explained to patient. 8:09:13 Pre-op teaching completed and patient verbalized understanding. 8:09:16 Family in patients room. 8:09:19 Patient NPO since Midnight. 8:09:28 Patient allergic to Sulfa drugs 8:09:34 Patient allergic to Codeine 8:09:36 Is the patient allergic to Iodine/contrast media? No. 8:09:41 Is patient on blood thinner?Yes 8:09:47 ACC The patient was administered the following blood thiners within the last 24 hours: ACCAspirin, ACCPlavix, ACCLovenox 8:09:49 Patient diabetic? No. 8:09:50 ----Pre-sedation anethsthesia assessment.---- 8:09:52 Previous problem with sedation/anesthesia? No ? 8:09:53 Snore? Yes 8:09:55 Sleep apnea? No 8:09:56 Deviated septum? No 8:09:58 Opens mouth fully? Yes 8:10:00 Sticks out tongue? Yes 8:10:06 Airway obstruction? Yes COPD 8:10:13 Dentures? No ? 8:10:16 Pre procedure: right dorsailis pedis pulse 2+ Normal; easily identifiable; not easily obliterated 8:10:20 Modified Jaxon's test Ulnar > 7 seconds. 8:10:24 Patient pain scale 0/10 ?. 8:10:45 IV patent on arrival in right hand with 0.9% NaCl at 10ml/hr. 8:10:48 Lab results completed and on chart. 8:10:52 Right groin area was prepped with chlora-prep and draped in sterile fashion 8:10:52 Alarms reviewed by R. N. 8:10:53 Sharps counted by scrub and verified by R.N. 8:10:54 Physician arrived 8:10:55 --------ALL STOP TIME OUT------ 8:10:56 Final Timeout: patient, procedure, and site verified with staff and physician. All members of the team are in agreement. 8:10:58 Right groin site verified by team. 8:11:03 Physical assessment completed. ASA score P 2 - A patient with mild systemic disease as per Kurt Wharton MD. 8:11:06 Sedation plan: IV Moderate Sedation Medication:Versed, Fentanyl 8:13:59 Use device set Femoral Dx 8:14:00 ACIST Syringe (94055) opened to sterile field. 8:14:01 Bag Decanter () opened to sterile field. 8:14:01 Medline Cath Pack ([id number]) opened to sterile field. 8:14:02 DIAGNOSTIC WIRE .035 260cm J wire (326039) opened to sterile field. 8:14:04 ACIST Hand Control (32326) opened to sterile field. 8:14:04 ACIST Manifold (84204) opened to sterile field. 8:14:05 DIAGNOSTIC Multipack 5Fr catheter set (XZ7732) opened to sterile field. 8:14:05 Tegaderm 4 x 4 (1626W) opened to sterile field. 8:14:06 PERCUTANEOUS ENTRY 19GA needle opened to sterile field. 8:14:12 SHEATH Prelude 5Fr 0.035 (XLQ-7W-05-035) opened to sterile field. 8:14:16 Procedure started. 8:14:25 Local anesthetic to right femoral artery with Lidocaine 2% by Kurt Wharton MD.INITIAL ACCESS ONLY 8:14:32 Versed 2 mg I.V. was administered by Kevin Noyola RN; for sedation; 8:14:41 Fentanyl 100 mcg I.V. was administered by Kevin Noyola RN; for sedation; 8:18:39 Versed 1 mg I.V. was administered by Kevin Noyola RN; for sedation; 8:19:29 Local anesthetic to left femerol artery with Lidocaine 2% by Kurt Wharton MD.ADDITIONAL ACCESS 8:19:40 A 5 Fr sheath was inserted into the Left Femoral artery 8:20:15 Zero performed for pressure channel P1 8:20:18 Zero performed for pressure channel P1 8:20:50 A MULTIPACK 3DRC 5Fr catheter was advanced over the wire and used for Right Coronary Angiography. 8:21:51 RCA angiography performed. 8:22:08 Catheter exchanged over wire. 8:22:33 A MULTIPACK Pigtail 5 Fr catheter was advanced over the wire and used for LV Angiography. 8:22:49 Procedure type changed to Cath procedure, Diagnostic procedure, LHC, LHC w/Coronaries, PCI procedure, Coronary Stent, Coronary Stent Initial, Peripheral Cath Diagnostic Procedure, Cath Peripheral, Crjdk-Duvrwcp-Fki-Off, Peripheral vascular Intervention, Stent, Stent Iliac w/plasty Initial 8:23:48 EF : 60 % 8:23:54 Aortic Root visualized 8:23:57 LV gram done using BROWN 8:24:03 Abdominal angiogram w/ runoff was performed. 8:24:12 Left leg runoff performed. 8:24:14 Right leg runoff performed. 8:25:11 INFLATOR Merit BasixCompak (CP1466) opened to sterile field. 8:25:26 CHOICE PT Extra Support 182cm wire ([id number]) opened to sterile field. 8:25:28 SHEATH 6Fr Prelude ([id number]) opened to sterile field. 8:25:57 SHEATH 6FR Brite Tip 35cm ([id number]) opened to sterile field. 8:26:28 Catheter exchanged over wire. 8:26:36 Sheath upsized to a 6 Fr Mid-Length. 8:26:54 A MULTIPACK JL 4.0 5Fr catheter was advanced over the wire and used for Left Coronary Angiography. 8:27:09 Heparin Bolus 5000 units I.V. was administered by Kevin Noyola RN; for anticoagulation; 8:27:09 LCA angiography performed. 8:28:39 Catheter exchanged over wire. 8:28:45 ACC Pre-intervention CRYSTAL Flow is 3. 8:28:55 6 Fr HS 11 SH guide catheter was inserted over the wire 8:29:05 GUIDE 6FR HS II SH catheter ([id number]) opened to sterile field. 8:29:18 CPTES wire advanced. 8:32:33 Inflate balloon Inflation number: 1 A EUPHORA 3.0 x 30 Balloon ([id number]) was prepped and advanced across the Prox RCA, then inflated to 17 JUNITO for 0:43 (min:sec). 8:32:44 Inflation number: 2 The EUPHORA 3.0 x 30 Balloon ([id number]) was reinflated across the Prox RCA, to 17 JUNITO for 0:10 (min:sec). 8:32:53 Inflation number: 3 The EUPHORA 3.0 x 30 Balloon ([id number]) was reinflated across the Prox RCA, to 17 JUNITO for 0:08 (min:sec). 8:33:25 Stent catheter was removed intact over wire. 8:36:15 Place stent Inflation Number: 1 A MAGDA RX 3.5 x 38 stent ([id number]) was prepped and advanced across the Mid RCA. The stent was deployed at 15 JUNITO for 0:15 (min:sec). 8:36:34 Inflation number: 2 The stent balloon was then re-inflated across the Mid RCA to 17 JUNITO for 0:11 (min:sec). 8:36:50 Inflation number: 3 The stent balloon was then re-inflated across the Mid RCA to 17 JUNITO for 0:10 (min:sec). 8:37:16 Stent catheter was removed intact over wire. 8:39:27 Place stent Inflation Number: 4 A MAGDA RX 3.0 x 12 stent ([id number]) was prepped and advanced across the Prox RCA. The stent was deployed at 15 JUNITO for 0:16 (min:sec). 8:39:58 Stent catheter was removed intact over wire. 8:40:00 Wire removed. 8:40:06 Guide catheter removed. 8:44:16 Place stent Inflation Number: 1 A JOANNA 7 x 29 x 135 stent ([id number]) was prepped and advanced across the Mid Common Iliac, Left. The stent was deployed at 11 JUNITO for 1:03 (min:sec). 8:44:25 Stent catheter was removed intact over wire. 8:44:36 Sheath upsized to a 6 Fr Short. 8:44:39 Wire removed. 8:44:55 Sheath removed intact; hemostasis achieved with Exoseal to the Left Femoral artery. 8:45:02 EXOSEAL 6Fr (EX600) opened to sterile field. 8:45:07 Procedure ended.(Physican Out) 8:45:16 Fluoroscopy time 08.80 minutes. 8:45:21 Fluoroscopy dose: 564 mGy 8:45:21 Flurop Dose total: 564 8:45:26 Versed 1 mg I.V. was administered by Kevin Noyola RN; for sedation; 8:45:26 Contrast amount:Isovue 300 131ml. 8:45:28 Sharps counted by scrub and verified by R.N. 8:45:29 Insertion/operative site no bleeding no hematoma. 8:45:32 Post-op/insertion site Left Femoral artery dressed using a 4 x 4 and Tegaderm. 8:45:38 Post left femerol artery:stable 8:45:40 Post Procedure Pulses reassessed and unchanged 8:45:43 Post procedure: left dorsailis pedis pulse 2+ Normal; easily identifiable; not easily obliterated. 8:45:46 Post procedure rhythm: sinus rhythm 8:45:50 Post procedure instruction explained to patient.Patient verbalizes understanding. 8:45:51 Procedure and supply charges have been captured, reviewed, submitted and are correct. 8:47:10 Procedure Complication : No complications 8:47:14 Vital chart was stopped 8:47:14 See physician's report for complete and final results. 8:49:13 Report given to Pre/Post Procedure Room. 8:49:16 Patient transfered to Pre/Post Procedure Room with Stretcher. 8:49:18 Procedure ended. 8:49:18 Full Disclosure recording stopped 8:49:22 End room use (Document Last) Intervention Summary Intervention Notes Time ActionType Lesion and Equipment Action# Pressure Duration Attributes Used 8:32:33 Inflate Prox RCA EUPHORA 3.0 1 17 00:43 balloon x 30 Balloon ([id number]) 8:32:44 Reinflate Prox RCA EUPHORA 3.0 2 17 00:11 balloon x 30 Balloon ([id number]) 8:32:53 Reinflate Prox RCA EUPHORA 3.0 3 17 00:08 balloon x 30 Balloon ([id number]) 8:36:15 Place stent Mid RCA MAGDA RX 1 15 00:15 3.5 x 38 stent ([id number]) 8:36:34 Reinflate Mid RCA MAGDA RX 2 17 00:11 stent 3.5 x 38 balloon stent ([id number]) 8:36:50 Reinflate Mid RCA MAGDA RX 3 17 00:10 stent 3.5 x 38 balloon stent ([id number]) 8:39:27 Place stent Prox RCA MAGDA RX 4 15 00:16 3.0 x 12 stent ([id number]) 8:44:16 Place stent Mid Common JOANNA 7 x 1 11 01:03 Iliac, Left 29 x 135 stent ([id number]) Device Usage Item Name Manufacture Quantity Catalog Number Hospital Part Current Minimal Lot# / Charge Number Stock Stock Serial# Code ACIST Syringe Acist 1 92963 [id number] [id number] [id number] 20 (19065) Medical Systems Inc Bag Decanter Microtek 1 2001S 334636 84467 755914 5 () Medical Inc. Medline Cath Cardinal 1 [id number] 568287 58434 821672 5 [facility] ([id number]) DIAGNOSTIC WIRE [facility] 1 936976 910805 536636 966951 30 .035 260cm J wire (110393) ACIST Hand Acist 1 59289 381503 325899 343489 5 Control (42150) Medical Systems Inc ACIST Manifold Acist 1 99448 844788 372120 557623 5 (09876) Medical Systems [employer] DIAGNOSTIC Cardinal 1 FT1367 380679 95045 665076 30 Multipack 5Fr Health catheter set (CA4853) Tegaderm 4 x 4 3M 1 1626W 908557 876109 997559 5 (1626W) PERCUTANEOUS Cook Medical 1 C79873 033548 913082 5 ENTRY 19GA needle SHEATH Prelude Merit 1 [id number]-1N-93-035 790263 262683 266234 5 5Fr 0.035 Medical (IJW-3L-02-035) MULTIPACK 3DRC Cardinal 1 276003 5 5Fr catheter Health MULTIPACK Cardinal 1 243383 5 Pigtail 5 Fr Health catheter INFLATOR Merit Merit 1 PX1721 581756 906015 412476 15 enVerid (ZT9019) CHOICE PT Extra [place] 1 [id number] 773980 331453 700836 5 Support 182cm Scientific wire ([id number]) SHEATH 6Fr Merit 1 [id number] 409530 977219 863211 5 Prelude Medical ([id number]) SHEATH 6FR Cardinal 1 [id number] 842663 920343 437124 1 Brite Tip 35cm Health (901686G) MULTIPACK JL Cardinal 1 845496 5 4.0 5Fr Health catheter GUIDE 6FR HS II Medtronic 1 [id number] 156256 61224 472370 1 SH catheter ([id number]) EUPHORA 3.0 x Medtronic 1 [id number] 597569 590064 829132 5 [id number] 30 Balloon ([id number]) MAGDA RX 3.5 x Celestin 1 3686826-09 311084 6157131 566417 5 [id number] 38 stent Vascular ([id number]) MAGDA RX 3.0 x Celestin 1 0375841-27 049443 0600554 075010 5 [id number] 12 stent Vascular ([id number]) JOANNA 7 x 29 Cardinal 1 [id number] 758528 158870 5 x 135 stent Health ([id number]) EXOSEAL 6Fr Cardinal 1 EX600 614050 037354 073773 10 (EX600) Health Signature Audit [place] Stage Time Signature Unsigned Intra-Procedure 12/21/2017 Franki Montalvo RT(R) 8:50:17 AM Signatures Monitor : Franki Montalvo RT Signature : Date : Time : [facility] [address] [place] [address]
--- NOTE | ~2017-12-19 | HP ---
PATIENT: BRAXTON DAVIS MEDICAL RECORD: [id number] ACCOUNT: [id number] LOCATION:[address] : 50 ADMISSION DATE: 12/19/17 HISTORY AND PHYSICAL EXAMINATION ADMITTING DIAGNOSES: 1. Acute coronary syndrome. 2. Coronary artery disease. 3. Previous multivessel percutaneous transluminal coronary angioplasty and stent. 4. Chronic obstructive pulmonary disease. 5. Smoking history. 6. Hyperlipidemia. HISTORY OF PRESENT ILLNESS: Ms. Davis presents with sudden onset of chest pain followed with angina. Troponin is mildly elevated. She has had recurrent chest pain since being in the hospital. She is currently pain free at this time. Her EKG is with nonspecific ST-T abnormalities. Last cardiac intervention was 2-vessel PTCA and stent in October. PHYSICAL EXAMINATION: GENERAL APPEARANCE: Well nourished, well developed, appears stated age. Level of distress, comfortable. PSYCHIATRIC: Mental status, alert, normal affect. Orientation, oriented to time, place and person. EYES: Lids and conjunctivae, noninjected. No discharge, no pallor. ENT: Lips, teeth, gums, normal dentition. Oropharynx, no cyanosis, no pallor. NECK: Carotid arteries, bilateral normal upstroke, no bruits, no thrills. JUGULAR VEINS: No jugular venous pressure or distention. CERVICAL LYMPH NODES: Nontender, nonenlarged. THYROID: Not enlarged. Nontender. No nodules. LUNGS: Respiratory effort, unlabored. CHEST: Normal curvature. No thoracic deformity. No chest wall tenderness. Percussion, resonant. Auscultation, clear. No wheezes, no rales, no rhonchi. CARDIOVASCULAR: Precordial exam, nondisplaced. No heaves or pericardial thrills. Rate and rhythm, regular. Heart sounds, normal S1, normal S2. No S3, no gallop, no rub. Systolic murmur, not heard. Diastolic murmur, not heard. EXTREMITIES: No cyanosis, no edema. Peripheral pulses, full and equal in all extremities, except as noted. No bruits appreciated. ABDOMEN: Soft, nondistended. Normal aorta. No bruit. Nontender. No masses. Liver, nontender, no hepatomegaly. Spleen, nontender, no splenomegaly. MUSCULOSKELETAL: No joint tenderness. No joint swelling. No erythema. NEUROLOGICAL: Normal gait, normal strength, normal tone. SKIN: Warm and dry. OVERALL IMPRESSION: Unstable angina with increased troponin, acute coronary syndrome. We will proceed with coronary angiography. Further care depends upon findings of the angiography. TRANSINT:[id number] Voice Confirmation ID: [id number] DOCUMENT ID: [id number] HISTORY AND PHYSICAL [id number] BRAXTON DAVIS JEFFREY MD at 0851 CC: [id number] DICTATION DATE: 12/20/17 1102 FOREIGN BROADCAST SPECIALIST: 12/20/17 1128 ADM IN [facility] [address] [place] [id number]
--- NOTE | ~2017-12-19 | OP ---
PATIENT NAME: BRAXTON DAVIS MEDICAL RECORD: [id number] :50 LOCATION:D.CAT ADMISSION DATE: SURGEON: DONALD CARTER MD DATE OF OPERATION: 12/21/2017 DATE OF SERVICE: 12/21/2017 PROCEDURES: 1. PTCA stent RCA. 2. Left heart catheterization. 3. Selective coronary angiography. 4. Left ventriculogram. INDICATION: Non-Q-wave myocardial infarction, unstable angina. PROCEDURE IN DETAIL: After informed consent was obtained and after a detailed description of risks, benefits as well as alternative therapies, the patient elected to proceed with angiogram and angioplasty. The left femoral area was prepped and draped in normal sterile fashion. Left femoral artery was cannulated via modified Seldinger technique with placement of 6-Mongolian sheath. All catheters exchanged through this sheath. FINDINGS: The left ventriculogram was or a standard 30-degree BROWN view, reveals good cardiac wall motion throughout all segments. Overall ejection fraction estimated at 60%. SELECTIVE CORONARY ANGIOGRAPHY: 1. Left main is with no significant angiographic disease. 2. Left anterior descending has moderate irregularities, but no flow-limiting stenosis. 3. The left circumflex has moderate irregularities, but no flow-limiting stenosis. Previously placed stent is widely patent. 4. The right coronary has multiple previously placed stents. There are long areas of 90% in-stent restenosis drawn. HOUSING SPECIALIST STENT OF THE RCA: The stent used was 3.5 x 38 mm Xience and a 3.0 x 12 millimeter Xience. Result was 0% residual stenosis. OVERALL IMPRESSION: 1. Successful percutaneous transluminal coronary angioplasty stent of the right coronary artery going from 90+ percent initial stenosis to 0% residual. PROCEDURES: 1. Stent placement, iliac, left. 2. HOUSING SPECIALIST iliac, left. 3. Aortofemoral runoff. 4. Abdominal aortography. INDICATION: Claudication, peripheral vascular disease, inability to gain access for cardiac catheterization. PROCEDURE IN DETAIL: After informed consent was obtained and after a detailed description of risks, benefits as well as alternative therapies, the patient elected to proceed with angiogram and angioplasty. The left femoral area was prepped and draped in normal sterile fashion. Left femoral artery was OPERATIVE REPORT [id number] BRAXTON DAVIS cannulated via modified Seldinger technique with placement of 6-Mongolian sheath. All catheters exchanged through this sheath. FINDINGS: Abdominal aortography was performed. The catheter was pulled down for aortofemoral runoff. Abdominal aortography reveals no significant abdominal aortic disease, no dissection or aneurysm formation. RIGHT LEG: A. Iliac: The common iliac has a previously placed stent. This is widely patent. Internal and external iliacs have moderate irregularities, but no flow-limiting stenosis. B. Femoral system: The common and deep femoral are widely patent. Superficial femoral has previously placed stents. There is up to 50% in-stent restenosis, but no flow-limiting stenosis. C. Popliteal and infrapopliteal vessels are patent with preserved 3-vessel runoff to the foot. LEFT LEG: A. Iliac: The common iliac has previously placed stent that is widely patent with no significant restenosis; however, the external iliac has 80% stenosis. B. Femoral system: The common and deep femoral are widely patent. Superficial femoral has previously placed stents up to 50% in-stent restenosis, but no flow-limiting stenosis. Popliteal and infrapopliteal vessels are patent with 3-vessel runoff to the foot. HOUSING SPECIALIST STENT OF THE LEFT EXTERNAL ILIAC: The stent and balloon combination used was a 7 x 29 Cordis Dolly, it was taken to 11 atmospheres. Result was 0% residual stenosis. OVERALL IMPRESSION: Successful percutaneous transluminal angioplasty stent of the left leg going from 80% initial stenosis to 0% residual. TRANSINT:[id number] Voice Confirmation ID: [id number] DOCUMENT ID: [id number] DONALD CARTER MD at 1642 CC: [id number] DICTATION DATE: 12/21/17 0855 CRYSTAL EVALUATOR: 12/21/17 1223 DEP CLI 12/21/17 [place] [id number]
--- NOTE | ~2017-12-19 | DS ---
PATIENT:BRAXTON DAVIS :50 MEDICAL RECORD: [id number] DISCHARGE SUMMARY ADMISSION DATE: 12/19/17 DISCHARGE DATE: 12/21/17 DIAGNOSES: 1. Non-Q-wave myocardial infarction. 2. Unstable angina, acute coronary syndrome. 3. Coronary artery disease. 4. Claudication. 5. Peripheral vascular disease. 6. Hypertension. 7. Hyperlipidemia. HOSPITAL COURSE: Mrs. Davis presents with acute coronary syndrome and mild elevated troponin and found to have critical disease of the RCA, underwent successful PTCA stent of the RCA, discharged home with no change in her medications as she is already on aspirin and Plavix. She will follow up with [facility] in 1 month. TRANSINT:[id number] Voice Confirmation ID: [id number] DOCUMENT ID: [id number] DONALD CARTER MD at 1642 CC: [id number] DICTATION DATE: 12/21/17918 PATIENTS TRANSPORTER: 12/21/17 1347 DEP CLI 12/21/[address] [address]
[2017-12-19] MEDS ORDERED: SINGULAIR10 MG PO (18:29)
[2017-12-19] MEDS ORDERED: NEURONTIN 300300 MG PO (18:30)
[2017-12-19 18:54] VITALS: BP 113/76
[2017-12-19 18:55] LABS: BASOPHILS 0.3 % (0-2); EOSINOPHILS 1.5 % (0-7); HEMATOCRIT 39.8 % (36.0-48.0); HEMOGLOBIN 13.1 g/dL (12-16); IMMATURE GRANULOCYTES 0.2 % (0-5); MCH 25.5 pg (26.0-34.0); MCHC 32.9 g/dL (31.0-37.0); MCV 77.6 fL (80.0-100.0); MEAN PLATELET VOLUME 10.1 fL (7.4-10.4); MONOCYTES 8.8 % (2-11); NEUTROPHILS 61.2 % (40-80); RBC 5.13 10x6/uL (4.00-5.40); RDW 16.4 % (11.5-14.5); WBC 10.1 10x3/uL (4.8-10.8)
[2017-12-19 19:08] LABS: ALKALINE PHOSPHATASE 84 U/L (46-116); ALT (SGPT) 20 U/L (10-68); BILIRUBIN - TOTAL 0.32 mg/dL (0.2-1.3); CALC OSMOLALITY 278 mosm/kg (275-300); CALCIUM 9.1 mg/dL (8.5-10.1); CARBON DIOXIDE 27.3 mmol/L (21.0-32.0); CHLORIDE - SERUM 102 mmol/L (98-107); CREATININE - SERUM 0.6 mg/dL (0.6-1.3); GLUCOSE 74 mg/dL (74-106); PROTEIN - SERUM 8.1 g/dL (6.4-8.2); SODIUM 140 mmol/L (136-145); UREA NITROGEN 15 mg/dL (7-18); eGFR NON AFRICAN AMERICAN > 90 mL/min (90-120)
[2017-12-19 19:11] LABS: PLATELET COUNT 283 10x3/uL (130-400)
[2017-12-19 19:17] LABS: POTASSIUM - SERUM 4.2 mmol/L (3.5-5.1)
[2017-12-19 19:20] LABS: CKMB 1.3 U/L (0.0-3.6); CREATINE KINASE 90 UL (21-215)
[2017-12-19 19:24] LABS: TROPONIN-I 0.297 ng/mL (0.000-0.060)
[2017-12-19 20:58] VITALS: BP 120/70
[2017-12-20] VITALS (7 sets, daily range): BP systolic 100–133; BP diastolic 62–93; Ht 157.5 cm; Wt 61.8 kg
[2017-12-20 01:53] LABS: CKMB 1.3 U/L (0.0-3.6); CREATINE KINASE 72 UL (21-215); TROPONIN-I 0.367 ng/mL (0.000-0.060)
[2017-12-20 07:08] LABS: CKMB 1.3 U/L (0.0-3.6); CREATINE KINASE 70 UL (21-215)
[2017-12-20 07:12] LABS: TROPONIN-I 0.343 ng/mL (0.000-0.060)
[2017-12-21 04:16] VITALS: BP 125/67
[2017-12-21 07:49] VITALS: BP 123/66
== END 2017-12-21 13:58 | disposition home or self-care (01) ==
LOC: OBSVTIME → D.ER 18:22 → D.CATH 18:22 → OBSVTIME 20:43 → D.EDHOLD 20:43 → D.M2 20:43 → D.ER 20:43 → D.EDHOLD 21:20 → D.M2 21:20 → D.ER 22:02 → D.CLR 12-21 09:54 → D.M2 12-21 09:54 → EDSTATUS 12-21 11:00 → D.CATH 12-21 13:58 → D.CLR 12-21 13:58
PROVIDERS: Emergency Medicine; Family Medicine
DX: I21.4 Non-ST elevation (NSTEMI) myocardial infarction (principal); I25.110 Atherosclerotic heart disease of native coronary artery with unstable angina pectoris; Z95.5 Presence of coronary angioplasty implant and graft; J44.9 Chronic obstructive pulmonary disease, unspecified; I10 Essential (primary) hypertension; E78.5 Hyperlipidemia, unspecified; Z87.891 Personal history of nicotine dependence; I70.212 Atherosclerosis of native arteries of extremities with intermittent claudication, left leg; T82.856A Stenosis of peripheral vascular stent, initial encounter; Y83.8 Other surgical procedures as the cause of abnormal reaction of the patient, or of later complication, without mention of misadventure at the time of the procedure
CPT/HCPCS: 93458; 37221; C9600

== ENCOUNTER → 2018-06-03 09:03 | Outpatient (CLI) | payer MEDICARE ==
[2017-12-20 01:09] VITALS: BMI 24.9
[~2018-06-03 09:03] MED LIST changes: +NEURONTIN 300300 MG PO; +SINGULAIR10 MG PO
== END | disposition home or self-care (01) ==
LOC: D.US 05-27 09:30
DX: Z85.3 Personal history of malignant neoplasm of breast (principal)

== ENCOUNTER → 2018-08-09 12:31 | Outpatient (CLI) | payer MEDICARE ==
[2017-12-20 01:09] VITALS: BMI 24.9
== END | disposition home or self-care (01) ==
LOC: D.RT 12:31
PROVIDERS: ATTEND Internal Medicine Pulmonary Disease
DX: J45.909 Unspecified asthma, uncomplicated (principal)

== ENCOUNTER 2018-09-01 08:49 | Emergency (ER) | payer MEDICARE ==
[~2018-09-01] VITALS: Ht 157.5 cm; Wt 59.1 kg
[2018-09-01 08:55] VITALS: Ht 157.5 cm; Wt 59.1 kg
[2018-09-01 14:01] VITALS: BP 135/79
[2018-09-02] MEDS ORDERED: PLAVIX75 MG PO (06:48)
[2018-09-02] MEDS ORDERED: HYDROCODON-ACE1 EAC7 PO (06:48)
== END 2018-09-01 14:08 | disposition home or self-care (01) ==
LOC: D.ER 08:49
DX: M79.604 Pain in right leg (principal); R10.9 Unspecified abdominal pain

== ENCOUNTER 2019-06-25 19:19 | Inpatient (IN) | payer MEDICARE ==
[~2019-06-25] VITALS: Ht 157.5 cm; Wt 57.5 kg
[2019-06-25 20:19] LABS: BASOPHILS 0.4 % (0-2); EOSINOPHILS 0.9 % (0-7); HEMATOCRIT 39.6 % (36.0-48.0); HEMOGLOBIN 12.9 g/dL (12-16); IMMATURE GRANULOCYTES 0.1 % (0-5); LYMPHOCYTES 29.4 % (15-50); MCH 25.6 pg (26.0-34.0); MCHC 32.6 g/dL (31.0-37.0); MCV 78.7 fL (80.0-100.0); MEAN PLATELET VOLUME 10.4 fL (7.4-10.4); MONOCYTES 9.9 % (2-11); NEUTROPHILS 59.3 % (40-80); PLATELET COUNT 263 10x3/uL (130-400); RBC 5.03 10x6/uL (4.00-5.40); WBC 8.5 10x3/uL (4.8-10.8)
[2019-06-25 20:29] LABS: CALC OSMOLALITY 272 mosm/kg (275-300); CARBON DIOXIDE 27.5 mmol/L (21.0-32.0); CHLORIDE - SERUM 100 mmol/L (98-107); CREATININE - SERUM 0.4 mg/dL (0.6-1.3); GLUCOSE 101 mg/dL (74-106); POTASSIUM - SERUM 3.5 mmol/L (3.5-5.1); SODIUM 137 mmol/L (136-145); UREA NITROGEN 11 mg/dL (7-18); eGFR NON AFRICAN AMERICAN > 90 mL/min (90-120)
[2019-06-25 20:38] LABS: APTT 27.6 SECONDS (22.8-39.4); PROTIME 13.1 SECONDS (11.6-15.0)
[2019-06-25 20:44] LABS: ALKALINE PHOSPHATASE 51 U/L (30-120); ALT (SGPT) 21 U/L (10-68); BILIRUBIN - TOTAL 0.45 mg/dL (0.2-1.3); CKMB 1.6 U/L (0.0-3.6); CREATINE KINASE 160 UL (21-215); PROTEIN - SERUM 7.7 g/dL (6.4-8.2)
--- NOTE | 2019-06-25 21:00 | NUR ---
PT PLACED ON MONITOR. PT AWAKE AND ALERT, FAMILY AT BEDSIDE. PT C/O HEADACHE BUT DENIES OTHER PAIN AT THIS TIME.
--- NOTE | 2019-06-25 21:49 | NUR ---
DR MILLAN AT PT BEDSIDE
--- NOTE | 2019-06-25 22:00 | NUR ---
PT AND SPOUSE UPDATED ON PLAN OF CARE.
--- NOTE | 2019-06-25 23:13 | NUR ---
REC'D PT FROM ER VIA STRETCHER. BREATHING ON ROOM AIR. CONFUSION TO TIME AND SITUATION. CONTRACTURE TO LEFT ARM. LEFT SIDED WEAKNESS FROM PREVIOUS CVA. AT BEDSIDE TO HELP WITH QUESTIONS. SIGNED BLOOD CONSENT. ADMIT ASSESSMENT COMPLETED
--- NOTE | 2019-06-26 | NUR ---
PLT STARTED. NO S/S OF REACTION
--- NOTE | 2019-06-26 01:00 | NUR ---
DENIES ANY NEEDS. NO CHANGES IN NEURO STATUS.
--- NOTE | 2019-06-26 02:10 | NUR ---
PLT COMPLETED. PT TOLERATED WITHOUT COMPLICATIONS
--- NOTE | 2019-06-26 03:00 | NUR ---
RE-ASSESSMENT COMPLETED. NO CHANGES SINCE LAST ASSESSMENT. REPOSITIONED
[2019-06-26 05:02] LABS: BASOPHILS 0.4 % (0-2); EOSINOPHILS 0.4 % (0-7); HEMATOCRIT 34.3 % (36.0-48.0); HEMOGLOBIN 11.1 g/dL (12-16); IMMATURE GRANULOCYTES 0.1 % (0-5); LYMPHOCYTES 25.2 % (15-50); MCH 25.4 pg (26.0-34.0); MCHC 32.4 g/dL (31.0-37.0); MCV 78.5 fL (80.0-100.0); MEAN PLATELET VOLUME 10.5 fL (7.4-10.4); MONOCYTES 9.6 % (2-11); NEUTROPHILS 64.3 % (40-80); PLATELET COUNT 224 10x3/uL (130-400); RBC 4.37 10x6/uL (4.00-5.40); RDW 16.9 % (11.5-14.5); WBC 7.3 10x3/uL (4.8-10.8)
--- NOTE | 2019-06-26 05:30 | NUR ---
PT HAD NOT URINATED DURING ENTIRE SHIFT. ELIZONDO CATHETER PLACED PER BORING MILL OPERATOR FOR METAL. TOLERATED WITH MINIMAL DISCOMFORT.
[2019-06-26 05:31] LABS: ALBUMIN 3.6 g/dL (3.4-5.0); ALKALINE PHOSPHATASE 44 U/L (30-120); BILIRUBIN - TOTAL 0.53 mg/dL (0.2-1.3); CALCIUM 8.2 mg/dL (8.5-10.1); CARBON DIOXIDE 24.7 mmol/L (21.0-32.0); CHLORIDE - SERUM 101 mmol/L (98-107); CREATININE - SERUM 0.4 mg/dL (0.6-1.3); GLUCOSE 88 mg/dL (74-106); POTASSIUM - SERUM 3.5 mmol/L (3.5-5.1); PROTEIN - SERUM 7.2 g/dL (6.4-8.2); SODIUM 135 mmol/L (136-145); eGFR NON AFRICAN AMERICAN > 90 mL/min (90-120)
[2019-06-26 05:32] LABS: ALT (SGPT) 14 U/L (10-68); CALC OSMOLALITY 266 mosm/kg (275-300); UREA NITROGEN 8 mg/dL (7-18)
--- NOTE | 2019-06-26 07:43 | NUR ---
PT AWAKE AND ALERT. DENIES PAIN.
--- NOTE | 2019-06-26 11:06 | NUR ---
DR JAMA HERE ON ROUNDS.REPORTED SBP OVER 170 AT TIMES. NO NEW ORDERS AT PRESENT.
[2019-06-26 11:16] LABS: BILIRUBIN NEGATIVE (NEGATIVE); GLUCOSE NEGATIVE (NEGATIVE); KETONE NEGATIVE (NEGATIVE); NITRITE NEGATIVE (NEGATIVE); UROBILINOGEN NORMAL (NORMAL)
[2019-06-26 13:17] LABS: % SATURATION 13 % (15-55); IRON 51 ug/dl (35-150); TOTAL IRON BIND CAPACITY 366 ug/dl (260-445); UNSAT IRON BIND CAPACITY 315 ug/dl (150-375)
--- NOTE | 2019-06-26 16:08 | NUR ---
ST IN PROGRESS AT BS.
--- NOTE | 2019-06-26 19:30 | NUR ---
REPORT RECEIVED. RECEIVED PATIENT UP IN BED. AWAKE AND ALERT. ORIENTED TO PERSON AND PLACE. SPEECH CLEAR AND APPROPRIATE. ASSESSMENT COMPLETED PER FLOW SHEET WITH NO ACUTE DISTRESS OBSERVED. MONITORS CONNECTED TO PATIENT WITH ALARMS SET. VSS. CALL LIGHT IN REACH
--- NOTE | 2019-06-26 23:00 | NUR ---
REASSESSMENT COMPLETED PER FLOW SHEET WITH NO ACUTE DISTRESS OBSERVED. VSS. CALL LIGHT IN REACH
--- NOTE | 2019-06-27 01:30 | NUR ---
PHONE CALL TO DR. JAMA. INFORMED OF PT'S SBP GREATER THAN 170. NEW ORDERS RECEIVED.
--- NOTE | 2019-06-27 03:00 | NUR ---
REASSESSMENT COMPLETED PER FLOW SHEET WITH NO ACUTE DISTRESS OBSERVED. VSS. BP NOW 160/63. CALL LIGHT IN REACH
[2019-06-27 04:32] LABS: BASOPHILS 0.2 % (0-2); EOSINOPHILS 0.5 % (0-7); HEMATOCRIT 33.7 % (36.0-48.0); IMMATURE GRANULOCYTES 0.2 % (0-5); LYMPHOCYTES 25.3 % (15-50); MCH 25.4 pg (26.0-34.0); MCHC 32.6 g/dL (31.0-37.0); MCV 77.8 fL (80.0-100.0); MEAN PLATELET VOLUME 10.3 fL (7.4-10.4); MONOCYTES 8.8 % (2-11); PLATELET COUNT 243 10x3/uL (130-400); RBC 4.33 10x6/uL (4.00-5.40); RDW 16.8 % (11.5-14.5); WBC 8.3 10x3/uL (4.8-10.8)
[2019-06-27 04:56] LABS: ALBUMIN 3.3 g/dL (3.4-5.0); ALKALINE PHOSPHATASE 42 U/L (30-120); ALT (SGPT) 18 U/L (10-68); BILIRUBIN - TOTAL 0.52 mg/dL (0.2-1.3); CALC OSMOLALITY 269 mosm/kg (275-300); CARBON DIOXIDE 25.4 mmol/L (21.0-32.0); CHLORIDE - SERUM 102 mmol/L (98-107); CREATININE - SERUM 0.4 mg/dL (0.6-1.3); GLUCOSE 86 mg/dL (74-106); MAGNESIUM - SERUM 1.7 mg/dL (1.8-2.4); POTASSIUM - SERUM 3.1 mmol/L (3.5-5.1); PROTEIN - SERUM 6.9 g/dL (6.4-8.2); SODIUM 137 mmol/L (136-145); UREA NITROGEN 5 mg/dL (7-18); eGFR NON AFRICAN AMERICAN > 90 mL/min (90-120)
--- NOTE | 2019-06-27 05:00 | NUR ---
RESTING WITH EYES CLOSED, EASILY ROUSED AND ALERT. VSS
--- NOTE | 2019-06-27 07:15 | NUR ---
REPORT RECEIVED. PT RESTING QUIETLY. PT HAS IV TO RIGHT WRIST AND TO WRIST FOREARM WITH NS INFUSING. PT HAS A ELIZONDO. SHE IS SLIGHTLY CONFUSED TO SITUATION/TIME. PT HAS SOME LEFT SIDED WEAKNESS FROM A PREVIOUS CVA. SHE HAS SOME ARTHRITIS AND CONTRACT TO HER LEFT ARM. SHE IS CURRENTLY GETTING HER POTASSIUM REPLACED. WILL REPLACE MAGNESIUM. NO COMPLAINTS OR NEEDS AT THIS TIME. WILL CONTINUE TO MONITOR.
--- NOTE | 2019-06-27 09:06 | NUR ---
FAMILY AT BEDSIDE. UPDATED ON PT'S STATUS. DR JAMA ROUNDED ON PT ABOUT 20 MINUTES AGO. NO NEW ORDERS AT THIS TIME. PT REFUSED BREAKFAST. STATED SHE WASN'T HUNGRY. ABOUT TO HANG LAST BAG OF POTASSIUM. WILL CONTINUE TO MONITOR.
[2019-06-27 09:48] VITALS: Ht 157.5 cm; Wt 57.5 kg
--- NOTE | 2019-06-27 12:58 | NUR ---
RAFAEL FAJARDO INITIATED. AT BEDSIDE. PT DRANK A MILKSHAKE FOR LUNCH AND ATE SOME OF HER MEAL THAT HER BROUGHT TO HER. NO COMPLAINTS OR NEEDS AT THIS TIME. WILL CONTINUE TO MONITOR.
--- NOTE | 2019-06-27 13:42 | NUR ---
POTASSIUM RECHECKED. 3.7. WILL CHECK AGAIN TOMORROW MORNING.
--- NOTE | 2019-06-27 15:39 | NUR ---
PT RESTING QUIETLY. VSS. CARDENE INFUSING AT 5MCG.
--- NOTE | 2019-06-27 21:00 | NUR ---
NO VISITORS AT THIS TIME, WILL CON'T TO MONITOR
--- NOTE | 2019-06-27 23:25 | NUR ---
REASSESSMENT COMPLETE, NO CHANGES NOTED, PT RESTING COMFORTABLY AT THIS TIME,
--- NOTE | 2019-06-28 01:05 | NUR ---
REPOSITIONED FOR COMFORT, WILL CON'T TO MONITOR
--- NOTE | 2019-06-28 03:25 | NUR ---
REASSESSMENT COMPLETE, NO CHANGES NOTED, PT RESTING COMFORTABLY AT THIS TIME, VSS, CALL LIGHT IN REACH
--- NOTE | 2019-06-28 05:29 | NUR ---
NO NEEDS NOTED AT THIS TIME, WILL CON'T TO MONITOR
--- NOTE | 2019-06-28 14:59 | NUR ---
REHAB PRESCREENING Rehab referral received and chart reviewed. Ms. Vilchis is a good candidate for ARU. Rehab will continue to follow and accept patient when her physicians feel she is appropriate for discharge. Thank you for this referral! Christiana Gonzalez, FIRE PREVENTION CHIEF Rehab PD
--- NOTE | 2019-06-28 17:37 | NUR ---
OT NOTE: PT COMPLETED SIT TO STAND WITH CGA. PT COMPLETED BED TO CHAIR TRANSFER WITH CGA/MIN A. [id number] THANK YOU,GORDON BECKWITH
--- NOTE | 2019-06-28 18:11 | NUR ---
RECEIVED PT FROM ICU, PT TRANSFERRED VIA WC, SPOUSE AT BEDSIDE. NO S/SX OF DISTRESS, STARTED IRON WHEN PT REACHED FLOOR. ELIZONDO INTACT, NO NEEDS VOICED, ASSUME PT CARE
--- NOTE | 2019-06-28 19:30 | NUR ---
PT LYING IN BED RESTING WITHOUT DISTRESS, ORIENTED TO SELF AND PLACE. FAMILY AT BEDSIDE. ELIZONDO IN PLACE. IV TO RIGHT WRIST AND FA SL. DENIES NEEDS AT THIS TIME. CL IN REACH, WILL CTM
--- NOTE | 2019-06-29 07:51 | NUR ---
ALERT AND ORIENTED TO SELF AND PLACE. LUNGS DIMINISHED TO BLL. HEART SOUNDS S1 AND S2 HEARD IN ALL KOVACS. BOWEL SOUNDS ACTIVE X 4. SKIN INTACT WITHOUT REDNESS. IV TO RIGHT WRIST AND RFA SL PATENT WITHOUT REDNESS. DENIES PAIN. DENIES NEEDS. BED LOW. CALL PUCKETT AND PERSONAL ITEMS IN REACH. WILL CONTINUE TO MONITOR.
--- NOTE | 2019-06-29 11:05 | MORECARE ---
CASE MANAGEMENT DISCHARGE SUMMARY PATIENT: BRAXTON DAVIS UNIT: [id number] ADM DATE: 06/25/19 AGE: 69 : 50 SEX: F ROOM/BED: D.2224 AUTHOR: MARK CORADO PHYSICIAN: REFERRING PHYSICIAN: GRAHAM MILLAN DO DATE OF SERVICE: 06/29/19 Discharge Plan Patient Name: BRAXTON DAVIS Facility: [facility]:[place] : 1950 Planned Disposition: Inpatient Rehab Anticipated Discharge Date: Discharge Date: Expected LOS: Initial Reviewer: [email or web address] Initial Review Date: 06/27/2019 Generated: 06/29/19 12:05 pm DCPIA - Discharge Planning Initial Assessment Updated by [email or web address]: Marissa Rinaldi on 06/29/19 11:03 am * Is the patient Alert and Oriented? Yes * How many steps to enter\exit or inside your home? * PCP MADIHA * [facility] * Preadmission Environment Home with Family * ADLs Independent * Equipment None * List name and contact numbers for known caregivers / representatives who currently or will assist patient after discharge: BETO DAVIS - SPOUSE - [phone] * Verbal permission to speak to the caregivers and representatives has been obtained from the patient. Yes * Community resources currently utilized None * Additional services required to return to the preadmission environment? No * Can the patient safely return to the preadmission environment? Yes * Has this patient been hospitalized within the prior 30 days at any hospital? No Patient Name: BRAXTON DAVIS Page [phone] at 1105 All edits/amendments must be made on the electronic document DICTATION DATE: 06/29/19 1105 WOVEN BLIND LOOM TENDER: CORTEZ 06/29/19 1105 RPT#: [id number] DC DATE: STATUS: ADM IN [facility] [address] [place] [address] END OF REPORT
--- NOTE | 2019-06-29 11:12 | NUR ---
NUTRITION F/U CHART REVIEWED, PT VISIT. TOLERATING [facility] SOFT DIET BUT INTAKE REMAINS POOR. SPOUSE PROVIDING SOME FOOD FROM OUTSIDE FACILITY. REPORTS PT ATE ~1/2 BREAKFAST BURRITO. HE IS ASSISTING WITH MEALS AND ENCOURAGING HER. RD FOLLOWING
--- NOTE | 2019-06-29 11:13 | MORECARE ---
CASE MANAGEMENT DISCHARGE SUMMARY PATIENT: BRAXTON DAVIS UNIT: [id number] ADM DATE: 06/25/19 AGE: 69 : 50 SEX: F ROOM/BED: D.2224 AUTHOR: MARK CORADO PHYSICIAN: REFERRING PHYSICIAN: GRAHAM MILLAN DO DATE OF SERVICE: 06/29/19 Discharge Plan Patient Name: BRAXTON DAVIS Facility: [facility]:[place] : 1950 Planned Disposition: Inpatient Rehab Anticipated Discharge Date: Discharge Date: Expected LOS: Initial Reviewer: [email or web address] Initial Review Date: 06/27/2019 Generated: 06/29/19 12:12 pm Comments DCP- Discharge Planning Updated by [email or web address]: Marissa Rinaldi on 06/29/19 10:[address] LATE ENTRY 06/27/19 Patient Name: BRAXTON DAVIS Admission Status: ER Accout number: [id number] Admission Date: 06-25-2019 : 1950 Admission Diagnosis: Attending: GRAHAM MILLAN Current LOS: 2 Anticipated DC Date: Planned Disposition: Inpatient Rehab Primary Insurance: MEDICARE A & B Discharge Planning Comments: CM met with patient to complete initial dc planning assessment. CM educated patient on the CM role and verbal consent given by patient to complete assessment. Patient lives at home with her where she is independent with her care. At discharge patient plans to return home and feels this is a safe discharge. CM discussed availability of home health, rehab services, and medical equipment. Her will be her operator and truck driver home. Patient denied known discharge needs at this time. CM will continue to follow and will assist as needed with dc plans/needs. CM discussed with patient and spouse about inpatient rehab. MICHELLE signed for [facility] inpatient rehab. Machine Heel Seat Fitter: Marissa Rinaldi DCPIA - Discharge Planning Initial Assessment Updated by [email or web address]: Marissa Rinaldi on 06/29/19 11:03 am * Is the patient Alert and Oriented? Yes * How many steps to enter\exit or inside your home? * PCP CLEARY * [facility] * Preadmission Environment Home with Family * ADLs Independent * Equipment None * List name and contact numbers for known caregivers / representatives who currently or will assist patient after discharge: ALONSO DAVIS - SPOUSE - [phone] * Verbal permission to speak to the caregivers and representatives has been obtained from the patient. Yes * Community resources currently utilized None * Additional services required to return to the preadmission environment? No * Can the patient safely return to the preadmission environment? Yes * Has this patient been hospitalized within the prior 30 days at any hospital? No Coverage Notice Reviewer: [id number] Jason Rinaldi Notice Issued Date-Time: 06/28/2019 13:30 Notice Type: Patient Choice Letter Notice Delivered To: Family Member Relationship to Patient: Spouse Coremaking Machine Setter Name: Alonso Davis Delivery Method: HAND - Hand Delivered Coco Days: Prior Verbal Notification: Recipient Understood Notice: Yes Recipient Signature: Yes Med Rec Note Co-signed by Attending: Coverage Notice Comment: [facility] Inpatient Rehab Last DP export: 06/29/19 10:05 a Patient Name: BRAXTON DAVIS Page [phone] at 1113 All edits/amendments must be made on the electronic document DICTATION DATE: 06/29/19 111 HOME ENERGY CONSULTANT: CORTEZ 06/29/19 1112 RPT#: [id number] DC DATE: STATUS: ADM IN [facility] [address] [place] [address] END OF REPORT
--- NOTE | 2019-06-29 12:34 | NUR ---
OT NOTE: BED MOB WITH SPV; SIT TO STAND WITH MIN ASSIST; AMB WITH KEYSMITH X 50 FT; SIMPLE GROOMING WITH MIN ASSIST; PT DID NOT EAT ANYTHING ON BREAKFAST TRAY. ZACHARY IBANEZ, OTR/L [phone]
--- NOTE | 2019-06-29 12:36 | NUR ---
SITTING IN CHAIR AT BEDSIDE. DENIES NEEDS. AT BEDSIDE. WILL CONTINUE TO MONITOR.
[2019-06-29 15:19] LABS: BASOPHILS 0.2 % (0-2); CALC OSMOLALITY 270 mosm/kg (275-300); CARBON DIOXIDE 25.7 mmol/L (21.0-32.0); CHLORIDE - SERUM 101 mmol/L (98-107); CREATININE - SERUM 0.5 mg/dL (0.6-1.3); EOSINOPHILS 1.2 % (0-7); GLUCOSE 104 mg/dL (74-106); HEMATOCRIT 36.8 % (36.0-48.0); HEMOGLOBIN 12.2 g/dL (12-16); IMMATURE GRANULOCYTES 0.2 % (0-5); MCH 25.8 pg (26.0-34.0); MCHC 33.2 g/dL (31.0-37.0); MEAN PLATELET VOLUME 9.9 fL (7.4-10.4); MONOCYTES 10.3 % (2-11); NEUTROPHILS 65.1 % (40-80); POTASSIUM - SERUM 3.4 mmol/L (3.5-5.1); RBC 4.72 10x6/uL (4.00-5.40); RDW 17.4 % (11.5-14.5); SODIUM 136 mmol/L (136-145); UREA NITROGEN 10 mg/dL (7-18); eGFR NON AFRICAN AMERICAN > 90 mL/min (90-120)
[2019-06-29 15:20] LABS: PLATELET COUNT 318 10x3/uL (130-400)
[2019-06-29 15:25] LABS: ALBUMIN 3.5 g/dL (3.4-5.0); ALKALINE PHOSPHATASE 59 U/L (30-120); ALT (SGPT) 20 U/L (10-68); BILIRUBIN - TOTAL 0.46 mg/dL (0.2-1.3); PROTEIN - SERUM 7.1 g/dL (6.4-8.2)
--- NOTE | 2019-06-29 16:23 | MORECARE ---
CASE MANAGEMENT DISCHARGE SUMMARY PATIENT: BRAXTON DAVIS UNIT: [id number] ADM DATE: 06/25/19 AGE: 69 : 50 SEX: F ROOM/BED: D.2224 AUTHOR: MARK CORDAO PHYSICIAN: REFERRING PHYSICIAN: GRAHAM MILLAN DO DATE OF SERVICE: 06/29/19 Discharge Plan Patient Name: BRAXTON DAVIS Facility: [facility]:[place] : 1950 Planned Disposition: Inpatient Rehab Anticipated Discharge Date: Discharge Date: Expected LOS: Initial Reviewer: [email or web address] Initial Review Date: 06/27/2019 Generated: 06/29/19 5:23 pm Comments DCP- Discharge Planning Updated by [email or web address]: Gill Henson on 06/29/19 3:[address] Nellie says OK for discharge to inpatient rehab. She is not to resume Plavix or Aspirin until after being seen in Dr. Ballard's office. I informed patient and , they are both in agreement to discharge today to inpatient rehab. DCP- Discharge Planning Updated by [id number]: Marissa Rinaldi on 06/29/19 10:[address] LATE ENTRY 06/27/19 Patient Name: BRAXTON DAVIS Admission Status: ER Accout number: [id number] Admission Date: 06-25-2019 : 1950 Admission Diagnosis: Attending: GRAHAM MILLAN Current LOS: 2 Anticipated DC Date: Planned Disposition: Inpatient Rehab Primary Insurance: MEDICARE A & B Discharge Planning Comments: CM met with patient to complete initial dc planning assessment. CM educated patient on the CM role and verbal consent given by patient to complete assessment. Patient lives at home with her where she is independent with her care. At discharge patient plans to return home and feels this is a safe discharge. CM discussed availability of home health, rehab services, and medical equipment. Her will be her superintendent drivers home. Patient denied known discharge needs at this time. CM will continue to follow and will assist as needed with dc plans/needs. CM discussed with patient and spouse about inpatient rehab. MICHELLE signed for [facility] inpatient rehab. Folding Machine Operator: Marissa Rinaldi DCPIA - Discharge Planning Initial Assessment Updated by [email or web address]: Marissa Rinaldi on 06/29/19 11:03 am * Is the patient Alert and Oriented? Yes * How many steps to enter\exit or inside your home? * PCP CLEARY * [facility] * Preadmission Environment Home with Family * ADLs Independent * Equipment None * List name and contact numbers for known caregivers / representatives who currently or will assist patient after discharge: ALONSO DAVIS - SPOUSE - [phone] * Verbal permission to speak to the caregivers and representatives has been obtained from the patient. Yes * Community resources currently utilized None * Additional services required to return to the preadmission environment? No * Can the patient safely return to the preadmission environment? Yes * Has this patient been hospitalized within the prior 30 days at any hospital? No Coverage Notice Reviewer: [id number] - Marissa Rinaldi Notice Issued Date-Time: 06/28/2019 13:30 Notice Type: Patient Choice Letter Notice Delivered To: Family Member Relationship to Patient: Spouse Student Financial Aid Manager Name: Alonso Davis Delivery Method: HAND - Hand Delivered Coco Days: Prior Verbal Notification: Recipient Understood Notice: Yes Recipient Signature: Yes Med Rec Note Co-signed by Attending: Coverage Notice Comment: [facility] Inpatient Rehab Reviewer: [email or web address] Jason Henson Notice Issued Date-Time: 06/29/2019 16:14 Notice Type: IM Discharge Notice Notice Delivered To: Patient Relationship to Patient: Self Student Financial Aid Manager Name: Delivery Method: HAND - Hand Delivered Coco Days: Prior Verbal Notification: Recipient Understood Notice: Yes Recipient Signature: Yes Med Rec Note Co-signed by Attending: Coverage Notice Comment: IMM explained, signed by per her request, given, copy placed in MR Last DP export: 06/29/19 10:13 a Patient Name: BRAXTON DAVIS Page 11447 at 1623 All edits/amendments must be made on the electronic document DICTATION DATE: 06/29/191622 SLIVER LAP MACHINE TENDER: CORTEZ 06/29/191622 RPT#: [id number] DC DATE: STATUS: ADM IN [facility] [address] [place] [address] END OF REPORT
[2019-06-29 16:29] VITALS: BP 112/61
--- NOTE | 2019-06-29 18:30 | NUR ---
ELIZONDO CATHETER DISCONTINUED. 750ML CLEAR DARK YELLOW URINE REMOVED FROM COLLECTION CHAMBER. 10ML SALINE REMOVED FROM STABILIZATION BALLOON PRIOR TO REMOVAL. (2) PIV REMOVED FROM RIGHT FA WITH BOTH CATHETER TIP INTACTS. DRESSINGS APPLIED TO BOTH PIV SITES. ALL DISCHARGE INSTRUCTIONS COVERED WITH PT SPOUSE AND PT. PT SPOUSE SIGNS ALL DISCHARGE PAPERS. SIGNED DISCHARGE PAPERS PLACED IN PT CHART. WILL TRANSPORT PT TO REHAB ROOM 1117 A. REPORT CALLED TO REHAB NURSE.
--- NOTE | 2019-06-29 18:58 | NUR ---
PT TRANSPORTED FROM ROOM VIA WHEELCHAIR TO REHAB. AT SIDE WITH DISCHARGE PAPERS. PT AND PT SPOUSE DENY FURTYHER QUESTIONS/CONCERNS/NEEDS.
--- NOTE | 2019-06-29 19:47 | NUR ---
OT NOTE: PT COMPLETED SUPINE TO SIT WITH MIN A FOR LE MANAGEMENT. PT COMPLETED SIT TO STAND WITH CGA. PT COMPLETED RUE AROM EX. [id number] THANK YOU,GORDON BECKWITH
== END 2019-06-29 19:04 | DRG 64 ==
LOC: D.ER 19:19 → D.ICU 21:50 → D.MS 06-28 18:01
PROVIDERS: Family Medicine; Internal Medicine Nephrology; ADMIT Family Medicine; ATTEND Family Medicine
DX: I61.9 Nontraumatic intracerebral hemorrhage, unspecified (principal); J18.9 Pneumonia, unspecified organism; E43 Unspecified severe protein-calorie malnutrition; Z68.23 Body mass index [BMI] 23.0-23.9, adult; I10 Essential (primary) hypertension; I25.10 Atherosclerotic heart disease of native coronary artery without angina pectoris; E78.5 Hyperlipidemia, unspecified; D50.9 Iron deficiency anemia, unspecified; F17.200 Nicotine dependence, unspecified, uncomplicated

== ENCOUNTER 2019-06-29 17:12 | Inpatient (IN) | payer MEDICARE ==
[~2019-06-29] VITALS: Ht 157.5 cm; Wt 57.2 kg
[~2019-06-29 17:12] MED LIST changes: +HYDROCODON-ACE1 EAC7 PO; +Levaquin PO; +NORVASC5 MG PO
--- NOTE | 2019-06-29 20:29 | NUR ---
ADMIT THIS 69 Y/O FEMALE TO PHYSICAL REHAB AND SERVICES OF DR AVILES. AWAKE AND ALERT. FORGETFGUL. ORIENTED TO PERSON AND PLACE ONLY. RESPIRATIONS UNLABORED. NOTED LEFT HAND CONTRACTURE. SEE ADMISSION ASSESSMENT. AT BEDSIDE. NO ACUTE DISTRESS NOTED.
[2019-06-29 21:48] VITALS: BP 116/72; BMI 23.1
[2019-06-29 22:06] VITALS: BP 116/72
--- NOTE | 2019-06-30 01:17 | NUR ---
RESTING IN BED WITH RESPIRATIONS UNLABORED. CALL LIGHT IN REACH.
--- NOTE | 2019-06-30 05:17 | NUR ---
QUIET HOURS. RESTED WELL. ASSITED TO BATHROOM AND VOIDED AND HAD A MEDIUM BM. NO ACUTE CHANGES IN CONDITION THIS SHIFT. RESTING NOW WITH NO DISTRESS NOTED.
[2019-06-30 07:02] LABS: CALC OSMOLALITY 274 mosm/kg (275-300); CALCIUM 9.3 mg/dL (8.5-10.1); CARBON DIOXIDE 27.8 mmol/L (21.0-32.0); CHLORIDE - SERUM 101 mmol/L (98-107); CREATININE - SERUM 0.5 mg/dL (0.6-1.3); GLUCOSE 99 mg/dL (74-106); POTASSIUM - SERUM 3.4 mmol/L (3.5-5.1); SODIUM 138 mmol/L (136-145); UREA NITROGEN 11 mg/dL (7-18); eGFR NON AFRICAN AMERICAN > 90 mL/min (90-120)
[2019-06-30 08:00] VITALS: BP 129/68
[2019-06-30 09:12] LABS: HEMATOCRIT 39.2 % (36.0-48.0); HEMOGLOBIN 12.9 g/dL (12-16); MCH 25.8 pg (26.0-34.0); MCHC 32.9 g/dL (31.0-37.0); MCV 78.4 fL (80.0-100.0)
[2019-06-30 09:13] LABS: RDW 17.4 % (11.5-14.5)
[2019-06-30 09:14] LABS: LYMPHOCYTES 27.4 % (15-50); MEAN PLATELET VOLUME 9.7 fL (7.4-10.4); MONOCYTES 10.4 % (2-11); NEUTROPHILS 60.1 % (40-80); PLATELET COUNT 313 10x3/uL (130-400)
[2019-06-30 09:15] LABS: BASOPHILS 0.1 % (0-2); EOSINOPHILS 1.7 % (0-7); IMMATURE GRANULOCYTES 0.3 % (0-5)
--- NOTE | 2019-06-30 12:00 | NUR ---
I have reviewed this patient and I concur with the Shift Assessment completed by the Licensed Practical Nurse today this shift.
[2019-06-30 15:36] VITALS: Ht 157.5 cm; Wt 57.2 kg
--- NOTE | 2019-06-30 18:38 | NUR ---
PT RESTING IN BED WITH EYES OPEN CALL LIGHT IN REACH WILL MONITER
[2019-06-30 20:00] VITALS: BP 128/73
--- NOTE | 2019-06-30 20:10 | NUR ---
PATIENT RECEIVED SITTING UP IN BED. ASSESSMENT & VITAL SIGNS DONE. NO C/O PAIN OR DISTRESS. BED LOW. ALARM ON. CALL LIGHT WITHIN REACH. WILL CONTINUE TO MONITOR.
--- NOTE | 2019-07-01 02:36 | NUR ---
I have reviewed this patient and I concur with the Shift Assessment completed by the Licensed Practical Nurse today this shift.
--- NOTE | 2019-07-01 03:40 | NUR ---
PATIENT EYES CLOSED. RESPIRATIONS 18 & EVEN. BED LOW. CALL LIGHT WITHIN REACH. WILL CONTINUE TO MONITOR.
[2019-07-01 08:15] LABS: BASOPHILS 0.3 % (0-2); EOSINOPHILS 1.6 % (0-7); HEMATOCRIT 38.7 % (36.0-48.0); HEMOGLOBIN 12.7 g/dL (12-16); IMMATURE GRANULOCYTES 0.3 % (0-5); LYMPHOCYTES 28.3 % (15-50); MCHC 32.8 g/dL (31.0-37.0); MCV 79.3 fL (80.0-100.0); MEAN PLATELET VOLUME 9.7 fL (7.4-10.4); MONOCYTES 10.5 % (2-11); PLATELET COUNT 322 10x3/uL (130-400); RBC 4.88 10x6/uL (4.00-5.40)
[2019-07-01 08:35] LABS: CALC OSMOLALITY 279 mosm/kg (275-300); CALCIUM 9.6 mg/dL (8.5-10.1); CARBON DIOXIDE 26.6 mmol/L (21.0-32.0); CHLORIDE - SERUM 102 mmol/L (98-107); CREATININE - SERUM 0.5 mg/dL (0.6-1.3); GLUCOSE 92 mg/dL (74-106); POTASSIUM - SERUM 3.6 mmol/L (3.5-5.1); SODIUM 140 mmol/L (136-145); eGFR NON AFRICAN AMERICAN > 90 mL/min (90-120)
[2019-07-01 08:38] LABS: UREA NITROGEN 15 mg/dL (7-18)
[2019-07-01 11:25] VITALS: BP 133/77
--- NOTE | 2019-07-01 19:30 | NUR ---
PT IS RESTING IN BED WITH EYES OPEN. ALERT AND ORIENTED X 3. DENIES ACUTE PAIN OR DISCOMFORT AT THIS TIME. LEFT SIDE WEAKNESS AND CONTRACTURE NOTED. NO NEEDS VOICED AT THIS TIME. SR'S ARE UP X 2 IN BED. CALL LIGHT AND BEDSIDE TABLE ARE WITHIN EASY REACH.
--- NOTE | 2019-07-01 21:29 | NUR ---
PT IS RESTING QUIETLY IN BED WITH EYES CLOSED. RESPS ARE EVEN AND UNLABORED. NO ACUTE DISTRESS NOTED.
--- NOTE | 2019-07-02 00:01 | NUR ---
RESTING IN BED WITH EYES CLOSED.
[2019-07-02 00:36] VITALS: BP 149/78
--- NOTE | 2019-07-02 03:00 | NUR ---
PT ASSISTED TO THE BATHROOM WITH MOD ASSIST. NO FURTHER NEEDS VOICED.
--- NOTE | 2019-07-02 06:07 | NUR ---
I have reviewed this patient and I concur with the Shift Assessment completed by the Licensed Practical Nurse today this shift.
[2019-07-02 07:30] VITALS: BP 126/75
--- NOTE | 2019-07-02 09:10 | NUR ---
ASSESSMENT COMPLETED.DENIES NEEEDS.BED IN LOW POSITION,CL IN EASY REACH.WILL CONTINUE WITH CURRENT PLAN OF CARE.PO MEDS TAKEN WITHOUT DIFFICULTY.
--- NOTE | 2019-07-02 12:05 | NUR ---
DULCOLAX 10MG PO GIVEN FOR C/O CONSTIPATION.SPOUSE AT BEDSIDE.CL IN EASY REACH.
--- NOTE | 2019-07-02 12:46 | NUR ---
NORCO GIVEN PER ORDERS FOR C/O HEADACHE AT CROWN OF HEAD.RATES PAIN A 6.
--- NOTE | 2019-07-02 19:32 | NUR ---
PT IS RESTING IN BED WITH EYES OPEN. SPOUSE ASSISTING PT TO REPOSITION IN BED. PT IS ALERT, BUT VERY CONFUSED. FOLLOWS DIRECTIONS, BUT ONLY WITH CUEING SEVERAL TIMES. LEFT SIDE WEAKNESS NOTED. LEFT ARM IS CONTRACTED. SPEECH IS CLEAR. SR'S ARE UP X 2 IN BED. CALL LIGHT AND BEDSIDE TABLE ARE WITHIN EASY REACH.
[2019-07-02 21:00] VITALS: BP 122/65
--- NOTE | 2019-07-02 22:46 | NUR ---
PT RESTING IN BED WITH EYES OPEN. NO NEEDS VOICED.
--- NOTE | 2019-07-03 01:35 | NUR ---
I have reviewed this patient and I concur with the Shift Assessment completed by the Licensed Practical Nurse today this shift.
--- NOTE | 2019-07-03 04:41 | NUR ---
PT IS RESTING QUIETLY IN BED WITH EYES CLOSED. NO ACUTE DISTRESS NOTED.
[2019-07-03 08:00] VITALS: BP 130/41
--- NOTE | 2019-07-03 15:11 | NUR ---
RESTING QUIETLY IN BED. SPENT SEVEAL HOURS WITH HER TODAY. THEY WALKED UP AND DOWN THE HALLS. HER APPETITE IS POOR. CALL LIGHT IN REACH
--- NOTE | 2019-07-03 19:30 | NUR ---
PT SITTING IN WC IN HER ROOM EATING SONIC WITH HER . ALERT TO SELF. CONFUSED TO TIME AND PLACE. NO NEEDS VOICED. CALL LIGHT AND BEDSIDE TABLE ARE WITHIN EASY REACH.
[2019-07-03 20:00] VITALS: BP 111/67
--- NOTE | 2019-07-03 21:47 | NUR ---
PT IS RESTING QUIETLY IN BED WITH EYES CLOSED. RESPS ARE EVEN AND UNLABORED. NO ACUTE DISTRESS NOTED.
--- NOTE | 2019-07-04 01:20 | NUR ---
PT RESTING IN BED WITH EYES CLOSED. NO ACUTE DISTRESS NOTED. AWOKE TO CHECK FOR INCONTINENCE. NONE NOTED.
--- NOTE | 2019-07-04 03:25 | NUR ---
I have reviewed this patient and I concur with the Shift Assessment completed by the Licensed Practical Nurse today this shift.
--- NOTE | 2019-07-04 06:10 | NUR ---
PT RESTING IN BED WITH EYES CLOSED. AWOKE TO VERBAL STIMULI. NO INCONTINENCE NOTED. PT DENIES NEED TO VOID AT THIS TIME.
[2019-07-04 06:56] LABS: CALC OSMOLALITY 278 mosm/kg (275-300); CALCIUM 8.6 mg/dL (8.5-10.1); CHLORIDE - SERUM 104 mmol/L (98-107); CREATININE - SERUM 0.5 mg/dL (0.6-1.3); GLUCOSE 89 mg/dL (74-106); POTASSIUM - SERUM 3.3 mmol/L (3.5-5.1); SODIUM 140 mmol/L (136-145); UREA NITROGEN 16 mg/dL (7-18); eGFR NON AFRICAN AMERICAN > 90 mL/min (90-120)
[2019-07-04 06:57] LABS: BASOPHILS 0.5 % (0-2); EOSINOPHILS 1.8 % (0-7); HEMATOCRIT 35.5 % (36.0-48.0); HEMOGLOBIN 11.5 g/dL (12-16); IMMATURE GRANULOCYTES 0.1 % (0-5); LYMPHOCYTES 42.9 % (15-50); MCH 25.7 pg (26.0-34.0); MCHC 32.4 g/dL (31.0-37.0); MCV 79.4 fL (80.0-100.0); MEAN PLATELET VOLUME 9.4 fL (7.4-10.4); MONOCYTES 8.3 % (2-11); NEUTROPHILS 46.4 % (40-80); PLATELET COUNT 316 10x3/uL (130-400); RBC 4.47 10x6/uL (4.00-5.40); RDW 18.2 % (11.5-14.5); WBC 7.3 10x3/uL (4.8-10.8)
[2019-07-04 09:48] VITALS: BP 118/51
--- NOTE | 2019-07-04 10:23 | NUR ---
VISITING WITH PT. HE HELPS WITH HER NEEDS AND ADL'S. SHE REMAINS CONFUSED BUT PLEASANT. AMPARO HAS LIMITED ROM AND FINGERS ON LEFT HAND ARE BENT AT ODD ANGLES. SHE IS WEAK ON LEFT SIDE. SHE DENIES PAIN OR SOB.
--- NOTE | 2019-07-04 15:28 | NUR ---
PATIENT ADMITTED TO REHAB FROM ACUTE FLOOR. DR. CLEARY IS PATIENT PCP. SHE HAS NO DME AT HOME. DISCHARGE PLANS ARE FOR PATIENT TO RETURN HOME. WILL CONTINUE TO FOLLOW WITH PATIENT.
--- NOTE | 2019-07-04 16:47 | RHP ---
PATIENT: BRAXTON DAVIS MEDICAL RECORD: [id number] ACCOUNT: [id number] LOCATION:[facility] : 50 ADMISSION DATE: 06/29/19 REHABILITATION HISTORY AND PHYSICAL EXAMINATION POST ADMISSION PHYSICIAN EXAMINATION ADMITTING DIAGNOSES: Cerebrovascular accident. HISTORY OF PRESENT ILLNESS: The patient is a 69-year-old female patient admitted secondary to an acute intraparenchymal hemorrhage in the region of her left caudate head, she presented to ED on 06/24/2019 with a history of flu-like symptoms. She completed Tamiflu, but continued to have intermittent cough, low-grade temperature and weakness. She began having a headache on the day of admission with worsening balance for the previous 2-3 days. 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 She is currently on Plavix and aspirin. Her physical exam was remarkable for left-sided weakness. Her labs were unchanged. CT of her head showed a 2 x 1.9 cm intraparenchymal hemorrhage in the intraventricular region, left greater than right. Dr. Ballard saw the patient. He ordered a unit of platelets given. The patient was admitted to ICU to the general medicine floor with neurosurgical consultation. Speech therapy showed that the patient was alert and oriented times 2. She had poor orientation. She was able to follow simple commands and required multiple redirections and problems in cues to stay on task. She was found to have oropharyngeal dysphagia and oral apraxia. No overt signs of aspiration at this time. Speech therapy has been following her for her swallowing safety, diet tolerance, and speech therapy. Neurosurgical impression was alert and oriented. She had some gross deficits noted, but felt like this was from her previous CVA. Previously, she lived with her spouse and was independent with ADLs and mobility. She does have some left-sided neglect from a previous CVA. Currently, she is mod to max assist for ADLs and mobility. She is on balance, has left-sided hemineglect, decreased attention span, follows one step commands and requires cues to maintain safety. She and her spouse would like her to return home at her prior level of functioning. COMORBIDITIES: Include acute intraventricular hemorrhage, bilateral left greater than right size to her ventricle. She has got an intracerebral bleed, oropharyngeal dysphagia, oral apraxia, got a history of hypokalemia, history of breast cancer, got a history of microcytic anemia, iron deficient anemia, pneumonia, arthritis. She has got a little bit of contracture to her left arm, malnutrition, peripheral vascular disease, COPD, and polyneuropathy. PAST MEDICAL HISTORY: Significant for CVA, got a history of hyperlipidemia, carotid stenosis, breast cancer, left arm contracture. PAST SURGICAL HISTORY: Includes cataract surgery. She has had bilateral mastectomy. She has had a bypass in the past, stent placement, port removal. She has had a vertebral bypass in the past. ALLERGIES: SULFA AND CODEINE. CURRENT MEDICATIONS: Include Crestor 40 mg daily. She is on Levaquin 750 q.48 hours, Neurontin 300 mg daily, fenofibrate 48 mg daily, citalopram 10 mg daily, amlodipine 5 mg daily, Protonix 40 mg daily, Singulair 10 mg at bedtime, and [place]rapeland 5/325 one tab q.6 hours p.r.n. HISTORY AND PHYSICAL [id number] NELLIEBRAXTON FLOWER HABITS: No alcohol or tobacco use. FAMILY HISTORY: Noncontributory. SOCIAL HISTORY: The patient hopes to return back home and get back to her prior level of function. REVIEW OF SYSTEMS: GENERAL: The patient is hard to direct, but she does complain of weakness. HEENT: Denies cold, cough, or congestion. CARDIOVASCULAR: Denies any chest pain. PHYSICAL EXAMINATION: VITAL SIGNS: Stable, afebrile. GENERAL: Elderly female, in no acute distress, alert upon exam. HEENT: Normocephalic and atraumatic. Mucosa moist. NECK: Supple. No lymphadenopathy. LUNGS: Clear in upper castañeda. No wheeze or rales. HEART: Regular rate and rhythm. No murmurs, rubs or gallops. ABDOMEN: Soft, benign, nondistended. Positive bowel sounds times 4. EXTREMITIES: Does have noted contracture on the left and weakness. NEUROLOGIC: She is consistent with CVA. LABORATORY DATA: Sodium is 138, potassium 3.4, BUN and creatinine of 11 and 0.5, and blood sugar was noted to be 99. Her white count is 8.5, H&H of 10 and 33, and platelet count was noted to be 141. ASSESSMENT: This is a 69-year-old female patient admitted to rehab with a working diagnosis of cerebrovascular accident. The patient has potential to make improvement. We instituted the following multidisciplinary therapies including, but not limited to physical, occupational, respiratory, speech, nutritional services, prosthetics and orthotics. Given her complex medical condition and risks for more complications, rehabilitation services cannot be provided at a low level of care such as skilled our facility. PLAN: [facility] the following disciplines: A. Physical therapy to improve gait, all transfer skills and bed mobility to a modified independent level. B. Occupational therapy to improve activities of daily living. C. Case management to assist with discharge planning and placement options. D. Nutrition to assist with nutritional needs. E. Rehabilitation nursing to assist in monitoring the patient's underlying medical conditions and to assist with any type of bowel or bladder management. 2. The patient's current medication and medical care will be continued. 3. We will follow up with speech during her stay. 4. We will continue on home medications were appropriate if she is not on any type of anticoagulant now secondary to the intracerebral hemorrhage. 5. I will see again in the a.m. TRANSINT:[id number] Voice Confirmation ID: [id number] DOCUMENT ID: [id number] CHRISTY notes whether there has been none or any medical/functional change since admission: HISTORY AND PHYSICAL [id number] BRAXTON DAVIS F - No change since prescreen. CHRISTY attests patient continues to be appropriate for IRF: - Continues to be appropriate. LONDON AVILES MD at 1647 CC: [id number] DICTATION DATE: 06/30/19 0857 RELATIONSHIP BANKER: 06/30/19 1246 ADM IN [facility] [address] [id number]
--- NOTE | 2019-07-04 19:30 | NUR ---
PT IS RESTING IN BED WITH EYES OPEN. ALERT TO SELF. CONFUSED TO TIME, PLACE AND SITUATION. FRIENDLY AND COOPERATIVE WITH STAFF. LEFT ARM IS CONTRACTED. SR'S ARE UP X 2 IN BED. CALL LIGHT AND BEDSIDE TABLE ARE WITHIN EASY REACH.
[2019-07-04 20:41] VITALS: BP 116/50
--- NOTE | 2019-07-04 22:13 | NUR ---
PT IS RESTING IN BED WATCHING TV. NO NEEDS VOICED.
--- NOTE | 2019-07-05 00:44 | NUR ---
PT IS RESTING QUIETLY IN BED WITH EYES CLOSED.
--- NOTE | 2019-07-05 01:15 | NUR ---
I have reviewed this patient and I concur with the Shift Assessment completed by the Licensed Practical Nurse today this shift.
--- NOTE | 2019-07-05 04:05 | NUR ---
RESTING IN BED WITH EYES CLOSED.
--- NOTE | 2019-07-05 08:00 | NUR ---
SHIFT ASSMT COMPLETED.UP OOB TO CHAIR.BREAKFAST GIVEN.SET-UP PROVIDED.CL IN REACH.ALARM SET.
--- NOTE | 2019-07-05 14:08 | NUR ---
Nutrition Follow-up: Chart reviewed. to replace low K. Diet: Regular Mech Soft PO intake: ~31% average x 6 meals; states that her appetite is not any better. is still bringing good in to her. She states that she would not drink oral nutrition supplement if I ordered them for her. Last BM: 06/30/19. WT: 126# (06/30/19), no new weight Meds noted: K-Dur. Labs noted: K 3.3(L). Recommend increase in bowel regimen to promote BM regularity and hopefully help increase appetite. Needs new weight. Recommend continue current diet. Enocuraged PO intake. RD following.
[2019-07-05 15:02] VITALS: BP 123/73
--- NOTE | 2019-07-05 19:48 | NUR ---
AWAKE AND ALERT. RESTING IN BED WITH RESPIRATIONS UNLABORED. NO DISTRESS NOTED. LEFT HAND CONTRACTED RELATED TO OLD STROKE. NO NEEDS VOICED. CALL LIGHT IN REACH.
[2019-07-06 00:07] VITALS: BP 127/71
--- NOTE | 2019-07-06 02:29 | NUR ---
SLEEPING WITH RESPIRAITONS UNLABORED. NO DISTRESS NOTED.
--- NOTE | 2019-07-06 04:52 | NUR ---
QUIET HOURS. NO ACUTE CHANGES IN CONDITION THIS SHIFT. RESTING IN BED WITH RESPIRATIONS UNLABORED. CALL LIGHT IN REACH.
[2019-07-06 08:59] LABS: BASOPHILS 0.6 % (0-2); EOSINOPHILS 1.4 % (0-7); HEMOGLOBIN 12.2 g/dL (12-16); IMMATURE GRANULOCYTES 0.2 % (0-5); LYMPHOCYTES 37.4 % (15-50); MCH 25.9 pg (26.0-34.0); MCV 78.6 fL (80.0-100.0); MEAN PLATELET VOLUME 9.5 fL (7.4-10.4); MONOCYTES 9.5 % (2-11); NEUTROPHILS 50.9 % (40-80); PLATELET COUNT 316 10x3/uL (130-400); RBC 4.71 10x6/uL (4.00-5.40); RDW 18.1 % (11.5-14.5); WBC 6.5 10x3/uL (4.8-10.8)
[2019-07-06 09:08] LABS: CALC OSMOLALITY 273 mosm/kg (275-300); CALCIUM 8.8 mg/dL (8.5-10.1); CARBON DIOXIDE 25.4 mmol/L (21.0-32.0); CHLORIDE - SERUM 104 mmol/L (98-107); CREATININE - SERUM 0.4 mg/dL (0.6-1.3); GLUCOSE 86 mg/dL (74-106); POTASSIUM - SERUM 3.8 mmol/L (3.5-5.1); SODIUM 138 mmol/L (136-145); UREA NITROGEN 10 mg/dL (7-18); eGFR NON AFRICAN AMERICAN > 90 mL/min (90-120)
[2019-07-06 09:36] VITALS: BP 120/69
--- NOTE | 2019-07-06 10:58 | NUR ---
ALERT, USED RIGHT HAND ON OVERHEAD TRAPEZE TO ASSIST IN REPOSITIONING FOR BREAKFAST. ANSWERS ARE LIMITED BUT APPROPRIATE. NO SIGNS OF DISTRESS. WILL CONTINUE TO MONITOR.
--- NOTE | 2019-07-06 15:57 | NUR ---
CARE TEAM MEETING PATIENT SPOUSE ATTENDED MEETING. HIS QUESTIONS AND CONCERNS WERE ADDRESSED. TENATIVE DISCHARGE DATE IS 07/08/19 WITH HER SPOUSE.WILL CONTINUE TO FOLLOW WITH PATIENT.
--- NOTE | 2019-07-06 19:15 | NUR ---
PT LYING IN BED WATCHING TV. CL IN REACH. DENIES NEEDS OR PAIN AT THIS TIME. BED IN LOW SIDE RAILS X2. A/O X4. LUNGS CLEAR. BOWEL ACTIVE X4. RESP EVEN AND UNLABORED. WILL CONTINUE TO MONITOR.
--- NOTE | 2019-07-06 19:34 | NUR ---
ALERT AND VISITING WITH HER THIS PM. HAS BEEN UP VOIDING WITH STAND BY ASSIST. STATES SHE HAD BM ON 07/05/2019. PT HAS OVERHEAD TRAPEZE AND WILL USE HER RIGHT HAND TO MOVE IF PROMPTED. NO COMPLAINTS OF PAIN. CALL LIGHT WITHIN REACH
[2019-07-06 21:20] VITALS: BP 125/67
[2019-07-07 09:21] VITALS: BP 176/99
--- NOTE | 2019-07-07 10:12 | NUR ---
SITTING IN WC IN THERAPY GYM. C/O THIS AM THAT LEFT SHOULDER HURT AND WAS IN TEARS. SHE ALREADY HAD PAIN MEDS THIS MORNING. CAME AND AND BROUGHT HER SALVE FROM HOME, IT HELPED.
[2019-07-07] MEDS ORDERED: HYDROCODON-ACE1 EAC7 PO (11:34)
--- NOTE | 2019-07-07 12:58 | NUR ---
C/O PAIN TO LEFT SHOULDER. PAIN MEDS GIVEN ORDERED. IN ROOM WITH PT.
--- NOTE | 2019-07-07 13:43 | NUR ---
SITTING UP IN BED WATCHING TV. DENIES INCREASED PAIN TO LEFT SHOULDER.
--- NOTE | 2019-07-07 18:00 | NUR ---
SITTING UP IN BED WATCHING TV. BROUGHT SUPPER AND FED HER. SHE ATE BETTER AND DENIES INCREASED PAIN TO LEFT SHOULDER. CALL LIGHT IN REACH
--- NOTE | 2019-07-07 19:10 | NUR ---
PT LYING IN BED RESTING QUIETLY. CL IN REACH. NO DISTRESS NOTED. BED IN LOW SIDE RAILS X2. A/O X4. LUNGS CLEAR. BOWEL ACTIVE X4. RESP EVEN AND UNLABORED. WILL CONTINUE TO MONITOR.
[2019-07-07 22:57] VITALS: BP 122/60
[2019-07-08 06:46] LABS: CALCIUM 8.7 mg/dL (8.5-10.1); CARBON DIOXIDE 25.3 mmol/L (21.0-32.0); CHLORIDE - SERUM 103 mmol/L (98-107); GLUCOSE 94 mg/dL (74-106); POTASSIUM - SERUM 4.3 mmol/L (3.5-5.1); SODIUM 138 mmol/L (136-145)
[2019-07-08 06:55] LABS: BASOPHILS 0.3 % (0-2); EOSINOPHILS 1.5 % (0-7); HEMATOCRIT 39.7 % (36.0-48.0); HEMOGLOBIN 12.9 g/dL (12-16); LYMPHOCYTES 34.8 % (15-50); MCH 26.3 pg (26.0-34.0); MCHC 32.5 g/dL (31.0-37.0); MEAN PLATELET VOLUME 9.4 fL (7.4-10.4); NEUTROPHILS 53.4 % (40-80); PLATELET COUNT 291 10x3/uL (130-400); RDW 18.5 % (11.5-14.5); WBC 6.8 10x3/uL (4.8-10.8)
[2019-07-08 06:56] LABS: CALC OSMOLALITY 277 mosm/kg (275-300); CREATININE - SERUM 0.6 mg/dL (0.6-1.3); UREA NITROGEN 19 mg/dL (7-18); eGFR NON AFRICAN AMERICAN > 90 mL/min (90-120)
--- NOTE | 2019-07-08 08:22 | NUR ---
SITTING UP IN BED WITH BREAKFAST TRAY. DENIES INCREASED PAIN TO LEFT SHOULDER OR ARM. PLEASANT AND COOPERATIVE BUT CONFUSED. CALL LIGHT IN REACH
--- NOTE | 2019-07-08 09:46 | NUR ---
PATIENT DISCHARGING HOME TODAY WITH FAMILY . [facility] WILL PROVIDE THERAPY AT HOME. NO COMPARE DATA REVIEWED PATIENT HAS BEEN A CLIENT OF [facility] . NO NEW DME NEEDED AT THIS TIME. DR. CLEARY/SHAQ RAMOS 07/18/2019 @ 10:30, DR. JAMA 07/20/2019 @ 10:30. PATIENT CHOICE FORM FOR HOME HEALTH AND [facility] FORM SIGNED AND EXPLAINED, ONE GIVEN TO PATIENT AND FILED IN CHART. DISCHARGE INSTRUCTIONS FAXED TO PCP, HOME HEALTH AND REVIEWED WITH PATIENT AND SPOUSE.
[2019-07-08 09:52] VITALS: BP 123/70
--- NOTE | 2019-07-08 13:19 | NUR ---
DC HOME WITH . MED SCRIPT GIVEN FOR PAIN MEDS. REVIEWED MEDS WITH . HE DENIES QUESTIONS. LEFT IN WC.
== END 2019-07-08 13:20 | disposition home health service (06) | DRG 56 ==
LOC: D.REHAB 17:12
PROVIDERS: ADMIT Emergency Medicine; ATTEND Emergency Medicine
DX: I69.30 Unspecified sequelae of cerebral infarction (principal); J18.9 Pneumonia, unspecified organism; E46 Unspecified protein-calorie malnutrition; G81.94 Hemiplegia, unspecified affecting left nondominant side; R13.12 Dysphagia, oropharyngeal phase; R48.2 Apraxia; D50.9 Iron deficiency anemia, unspecified; M19.90 Unspecified osteoarthritis, unspecified site; I73.9 Peripheral vascular disease, unspecified; J44.9 Chronic obstructive pulmonary disease, unspecified; G62.9 Polyneuropathy, unspecified; I10 Essential (primary) hypertension; E87.6 Hypokalemia; I25.10 Atherosclerotic heart disease of native coronary artery without angina pectoris; E78.5 Hyperlipidemia, unspecified

== ENCOUNTER 2019-12-13 00:53 | Emergency (ER) | payer MEDICARE ==
[~2019-12-13] VITALS: Ht 157.5 cm; Wt 50.0 kg
[2019-12-13 00:56] VITALS: Ht 157.5 cm; Wt 50.0 kg
[2019-12-13] MEDS ORDERED: HYDROCODON-ACE1 EAC7 PO (02:51)
[2019-12-13] MEDS ORDERED: BENADRYL25 MG PO (02:51)
[2019-12-13 03:35] VITALS: BP 136/60
== END 2019-12-13 03:35 | disposition home or self-care (01) ==
LOC: D.ER 00:53
DX: S22.32XA Fracture of one rib, left side, initial encounter for closed fracture (principal); S70.02XA Contusion of left hip, initial encounter; S30.0XXA Contusion of lower back and pelvis, initial encounter; Z86.73 Personal history of transient ischemic attack (TIA), and cerebral infarction without residual deficits; W01.10XA Fall on same level from slipping, tripping and stumbling with subsequent striking against unspecified object, initial encounter; Y93.9 Activity, unspecified; Y92.9 Unspecified place or not applicable

== ENCOUNTER 2019-12-15 12:34 | Inpatient (IN) | payer MEDICARE ==
[~2019-12-15] VITALS: Ht 157.5 cm; Wt 59.0 kg
[~2019-12-15 12:34] MED LIST changes: +BENADRYL25 MG PO
--- NOTE | 2019-12-15 12:53 | NUR ---
PREVIOUS VISIT HAD XRAY AND WAS TOLD BROKEN RIB
[2019-12-15 15:17] LABS: CALC OSMOLALITY 268 mosm/kg (275-300); CALCIUM 9.5 mg/dL (8.5-10.1); CARBON DIOXIDE 28.9 mmol/L (21.0-32.0); CHLORIDE - SERUM 98 mmol/L (98-107); CREATININE - SERUM 0.6 mg/dL (0.6-1.3); GLUCOSE 89 mg/dL (74-106); SODIUM 135 mmol/L (136-145); UREA NITROGEN 13 mg/dL (7-18); eGFR NON AFRICAN AMERICAN > 90 mL/min (90-120)
[2019-12-15 15:18] LABS: BASOPHILS 0.2 % (0-2); EOSINOPHILS 0.3 % (0-7); HEMATOCRIT 39.7 % (36.0-48.0); HEMOGLOBIN 13.1 g/dL (12-16); IMMATURE GRANULOCYTES 0.3 % (0-5); LYMPHOCYTES 19.2 % (15-50); MCH 27.2 pg (26.0-34.0); MCV 82.5 fL (80.0-100.0); MEAN PLATELET VOLUME 10.1 fL (7.4-10.4); MONOCYTES 10.4 % (2-11); NEUTROPHILS 69.6 % (40-80); RBC 4.81 10x6/uL (4.00-5.40); RDW 16.4 % (11.5-14.5); WBC 10.7 10x3/uL (4.8-10.8)
[2019-12-15 15:19] LABS: PLATELET COUNT 211 10x3/uL (130-400)
[2019-12-15 15:23] LABS: ALBUMIN 4.1 g/dL (3.4-5.0); ALKALINE PHOSPHATASE 77 U/L (30-120); ALT (SGPT) 24 U/L (10-68); BILIRUBIN - TOTAL 0.76 mg/dL (0.2-1.3); PROTEIN - SERUM 8.3 g/dL (6.4-8.2)
[2019-12-15 15:24] LABS: POTASSIUM - SERUM 3.7 mmol/L (3.5-5.1)
[2019-12-15 15:36] VITALS: BP 144/72
[2019-12-15 16:35] VITALS: BP 144/72
[2019-12-15 20:00] VITALS: BP 101/60
[2019-12-15] MEDS ORDERED: BACLOFEN10 MG PO (20:23)
[2019-12-16 04:00] VITALS: BP 106/71
[2019-12-16 07:19] LABS: CALC OSMOLALITY 277 mosm/kg (275-300); CALCIUM 8.3 mg/dL (8.5-10.1); CARBON DIOXIDE 25.4 mmol/L (21.0-32.0); CHLORIDE - SERUM 103 mmol/L (98-107); CREATININE - SERUM 0.5 mg/dL (0.6-1.3); GLUCOSE 74 mg/dL (74-106); MAGNESIUM - SERUM 1.9 mg/dL (1.8-2.4); PHOSPHOROUS 2.9 mg/dL (2.5-4.9); POTASSIUM - SERUM 3.5 mmol/L (3.5-5.1); SODIUM 140 mmol/L (136-145); UREA NITROGEN 13 mg/dL (7-18); eGFR NON AFRICAN AMERICAN > 90 mL/min (90-120)
[2019-12-16 07:37] LABS: BASOPHILS 0.3 % (0-2); EOSINOPHILS 0.8 % (0-7); IMMATURE GRANULOCYTES 0.1 % (0-5); LYMPHOCYTES 15.8 % (15-50); MCH 27.3 pg (26.0-34.0); MCHC 32.4 g/dL (31.0-37.0); MCV 84.3 fL (80.0-100.0); MEAN PLATELET VOLUME 10.3 fL (7.4-10.4); MONOCYTES 11.3 % (2-11); NEUTROPHILS 71.7 % (40-80); PLATELET COUNT 225 10x3/uL (130-400); RBC 4.39 10x6/uL (4.00-5.40); RDW 16.7 % (11.5-14.5); WBC 10.3 10x3/uL (4.8-10.8)
--- NOTE | 2019-12-16 08:16 | NUR ---
SHE HAS HAD THE EMESIS BAG IN FRONT OF HER, BUT SHE STATES "IT HAS PASSED". HER LEFT ARM IS CONTRACTURED. SHE IS ALERT, TALKING. THE CALL [facility] IS WITHIN REACH.
[2019-12-16 09:26] VITALS: BP 124/72
[2019-12-16 12:56] VITALS: BP 129/71
[2019-12-16 14:29] VITALS: BMI 23.8
[2019-12-16 14:46] VITALS: Ht 157.5 cm; Wt 59.0 kg
[2019-12-16 17:22] VITALS: BP 122/73
--- NOTE | 2019-12-16 19:00 | NUR ---
BEDSIDE REPORT RECEIVED AND CARE OF PT ASSUMED. PT LYING IN LOW HUERTA'S POSITION WITH EYES CLOSED. IV TO RIGHT WRIST PATENT WITH NS INFUSING AT 75 ML/HR. WILL MONITOR FOR NEEDS.
[2019-12-16 20:00] VITALS: BP 131/80
--- NOTE | 2019-12-16 21:05 | NUR ---
GAVE WATER AND SODA...DECLINES HS SNACK AT THIS TIME.
[2019-12-17 07:06] LABS: BASOPHILS 0.2 % (0-2); EOSINOPHILS 0.1 % (0-7); HEMATOCRIT 32.2 % (36.0-48.0); HEMOGLOBIN 10.6 g/dL (12-16); IMMATURE GRANULOCYTES 0.1 % (0-5); LYMPHOCYTES 12.8 % (15-50); MCH 27.5 pg (26.0-34.0); MCHC 32.9 g/dL (31.0-37.0); MCV 83.6 fL (80.0-100.0); MEAN PLATELET VOLUME 10.1 fL (7.4-10.4); MONOCYTES 8.1 % (2-11); NEUTROPHILS 78.7 % (40-80); PLATELET COUNT 210 10x3/uL (130-400); RBC 3.85 10x6/uL (4.00-5.40); RDW 16.4 % (11.5-14.5); WBC 8.9 10x3/uL (4.8-10.8)
[2019-12-17 07:47] LABS: PHOSPHOROUS 1.9 mg/dL (2.5-4.9)
--- NOTE | 2019-12-17 08:45 | NUR ---
SHE DID NOT HAVE A BM LAST NIGHT. I EDUCATED HER AND HER ABOUT THE IS AND DEEP BREATHING AND COUGHING. SHE CAN ONLY GET 300- [address] BRUNO ROUNDED. THE CALL LIGHT IS WITHIN REACH, AT THE BEDSIDE.
[2019-12-17 09:57] VITALS: BP 125/72
[2019-12-17 12:00] LABS: CALC OSMOLALITY 275 mosm/kg (275-300); CALCIUM 7.8 mg/dL (8.5-10.1); CARBON DIOXIDE 23.3 mmol/L (21.0-32.0); CHLORIDE - SERUM 102 mmol/L (98-107); CREATININE - SERUM 0.5 mg/dL (0.6-1.3); GLUCOSE 94 mg/dL (74-106); SODIUM 139 mmol/L (136-145); eGFR NON AFRICAN AMERICAN > 90 mL/min (90-120)
[2019-12-17 12:01] LABS: UREA NITROGEN 8 mg/dL (7-18)
[2019-12-17 14:09] VITALS: BP 111/63
[2019-12-17 17:22] VITALS: BP 131/75
[2019-12-17 21:00] VITALS: BP 113/60
[2019-12-18 07:28] LABS: CALC OSMOLALITY 272 mosm/kg (275-300); CALCIUM 7.9 mg/dL (8.5-10.1); CARBON DIOXIDE 25.3 mmol/L (21.0-32.0); CHLORIDE - SERUM 103 mmol/L (98-107); GLUCOSE 94 mg/dL (74-106); MAGNESIUM - SERUM 1.9 mg/dL (1.8-2.4); PHOSPHOROUS 2.1 mg/dL (2.5-4.9); SODIUM 137 mmol/L (136-145); UREA NITROGEN 9 mg/dL (7-18)
[2019-12-18 07:29] LABS: CREATININE - SERUM 0.3 mg/dL (0.6-1.3); eGFR NON AFRICAN AMERICAN > 90 mL/min (90-120)
[2019-12-18 07:32] LABS: POTASSIUM - SERUM 2.7 mmol/L (3.5-5.1)
[2019-12-18 08:01] LABS: BASOPHILS 0.1 % (0-2); EOSINOPHILS 1.5 % (0-7); HEMATOCRIT 31.7 % (36.0-48.0); HEMOGLOBIN 10.3 g/dL (12-16); IMMATURE GRANULOCYTES 0.1 % (0-5); MCH 27.2 pg (26.0-34.0); MCHC 32.5 g/dL (31.0-37.0); MCV 83.9 fL (80.0-100.0); MEAN PLATELET VOLUME 9.7 fL (7.4-10.4); MONOCYTES 9.3 % (2-11); PLATELET COUNT 209 10x3/uL (130-400); RBC 3.78 10x6/uL (4.00-5.40); RDW 16.2 % (11.5-14.5); WBC 8.3 10x3/uL (4.8-10.8)
[2019-12-18 09:01] VITALS: BP 126/70
[2019-12-18 12:25] VITALS: BP 103/61
--- NOTE | 2019-12-18 13:15 | NUR ---
PATIENT FINISHED WITH LUNCH. RESTING IN BED. FAMILY AT BEDSIDE. DENIES NEEDS, CALL LIGHT IN REACH, BED LOW POSITION. WILL CONTINUE TO MONITOR.
[2019-12-18] MEDS ORDERED: AZITHROMYCIN500 MG PO (15:36)
[2019-12-18] MEDS ORDERED: OMNICEF300 MG PO (15:37)
--- NOTE | 2019-12-18 18:35 | NUR ---
DISCHARGE PAPERS COMPLETE. IV REMOVED, CATH TIP INTACT. NO FURTHER QUESTONS. PATIENT TO LEAVE FLOOR VIA WHEELCHAIR TO HOME.
--- NOTE | 2019-12-18 19:01 | NUR ---
PATIENT ESCORTED TO ER EXIT VIA WHEELCHAIR TO HOME.
== END 2019-12-18 19:02 | disposition home or self-care (01) | DRG 194 ==
LOC: D.ER 12:34 → D.MS 16:17
PROVIDERS: Family Medicine; ADMIT Family Medicine; ATTEND Family Medicine
DX: J18.9 Pneumonia, unspecified organism (principal); S22.42XA Multiple fractures of ribs, left side, initial encounter for closed fracture; S42.202A Unspecified fracture of upper end of left humerus, initial encounter for closed fracture; F17.203 Nicotine dependence unspecified, with withdrawal; I10 Essential (primary) hypertension; E78.5 Hyperlipidemia, unspecified; W19.XXXA Unspecified fall, initial encounter; I25.10 Atherosclerotic heart disease of native coronary artery without angina pectoris; J98.4 Other disorders of lung; Z86.73 Personal history of transient ischemic attack (TIA), and cerebral infarction without residual deficits; J44.9 Chronic obstructive pulmonary disease, unspecified

== ENCOUNTER 2019-12-18 22:48 | Inpatient (IN) | payer MEDICARE ==
[~2019-12-18] VITALS: Ht 157.5 cm; Wt 52.3 kg
[~2019-12-18 22:48] MED LIST changes: +AZITHROMYCIN500 MG PO; +BACLOFEN10 MG PO; +OMNICEF300 MG PO
[2019-12-18 23:44] LABS: HEMATOCRIT 34.3 % (36.0-48.0); HEMOGLOBIN 11.1 g/dL (12-16); LYMPHOCYTES 9.6 % (15-50); MCH 27.1 pg (26.0-34.0); MCHC 32.4 g/dL (31.0-37.0); MCV 83.7 fL (80.0-100.0); MEAN PLATELET VOLUME 9.3 fL (7.4-10.4); NEUTROPHILS 78.8 % (40-80); PLATELET COUNT 245 10x3/uL (130-400); RDW 16.4 % (11.5-14.5); WBC 8.6 10x3/uL (4.8-10.8)
[2019-12-18 23:53] LABS: APTT 37.6 SECONDS (22.8-39.4); INR 1.05 (0.85-1.17); PROTIME 13.7 SECONDS (11.6-15.0)
[2019-12-18 23:59] LABS: CALC OSMOLALITY 271 mosm/kg (275-300); CALCIUM 8.3 mg/dL (8.5-10.1); CARBON DIOXIDE 29.3 mmol/L (21.0-32.0); CHLORIDE - SERUM 100 mmol/L (98-107); GLUCOSE 126 mg/dL (74-106); SODIUM 136 mmol/L (136-145); UREA NITROGEN 8 mg/dL (7-18)
[2019-12-19 00:01] LABS: CREATININE - SERUM 0.6 mg/dL (0.6-1.3); eGFR NON AFRICAN AMERICAN > 90 mL/min (90-120)
[2019-12-19 00:20] LABS: ALKALINE PHOSPHATASE 143 U/L (30-120); ALT (SGPT) 40 U/L (10-68); BILIRUBIN - TOTAL 0.37 mg/dL (0.2-1.3); CKMB 1.6 U/L (0.0-3.6); CREATINE KINASE 111 UL (21-215); PRO BNP 1948 pg/mL (0-125); PROTEIN - SERUM 7.1 g/dL (6.4-8.2); TROPONIN-I 0.037 ng/mL (0.000-0.060)
[2019-12-19 02:47] VITALS: BP 121/66
[2019-12-19 04:30] VITALS: BP 125/81
--- NOTE | 2019-12-19 07:56 | NUR ---
REPORT TO TC LÓPEZ.
[2019-12-19 10:27] VITALS: BP 113/65
[2019-12-19 11:18] VITALS: BP 113/65; Ht 157.5 cm; Wt 52.3 kg
--- NOTE | 2019-12-19 15:45 | NUR ---
ALERT AND OREINTED X4. SITTING UP IN BED. SPOUSE AT BEDSIDE. REPORT ELEVATED D.DIMER TO RICHARD LOPEZ.
[2019-12-19 18:28] VITALS: BP 100/59
--- NOTE | 2019-12-19 19:00 | NUR ---
EVENING ROUNDS COMPLETE. PT LAYING IN BED, AT BEDSIDE. AAOX4. NO SIGNS OF DISTERESS. PT DENIES ANY NEEDS AT THIS TIME. CL IN REACH, BED IN LOWEST POSITION.
[2019-12-19 20:00] VITALS: BP 113/68
--- NOTE | 2019-12-19 21:30 | NUR ---
PT A/O X4 COMPLAINS OF PAIN. PRN PAIN MED GIVEN. PT 22 G IV INFILTRATED. IV D/C'D 20G RESTARTED IN LFA. IV PATENT. PT GOING TO CT. RR EVEN AND UNLABORED. VITALS STABLE. WILL CONTINUE TO MONITOR.
[2019-12-20] VITALS: BP 103/52
[2019-12-20 04:00] VITALS: BP 105/72
[2019-12-20 06:49] LABS: BASOPHILS 0.2 % (0-2); EOSINOPHILS 2.5 % (0-7); HEMATOCRIT 33.2 % (36.0-48.0); HEMOGLOBIN 10.6 g/dL (12-16); IMMATURE GRANULOCYTES 0.4 % (0-5); LYMPHOCYTES 14.7 % (15-50); MCH 26.6 pg (26.0-34.0); MCHC 31.9 g/dL (31.0-37.0); MCV 83.4 fL (80.0-100.0); MEAN PLATELET VOLUME 8.8 fL (7.4-10.4); MONOCYTES 11.9 % (2-11); NEUTROPHILS 70.3 % (40-80); PLATELET COUNT 226 10x3/uL (130-400); RBC 3.98 10x6/uL (4.00-5.40); RDW 16.3 % (11.5-14.5); WBC 8.4 10x3/uL (4.8-10.8)
[2019-12-20 07:26] LABS: CALC OSMOLALITY 276 mosm/kg (275-300); CALCIUM 8.3 mg/dL (8.5-10.1); CARBON DIOXIDE 28.2 mmol/L (21.0-32.0); CHLORIDE - SERUM 97 mmol/L (98-107); CREATININE - SERUM 0.6 mg/dL (0.6-1.3); POTASSIUM - SERUM 3.3 mmol/L (3.5-5.1); SODIUM 136 mmol/L (136-145); UREA NITROGEN 9 mg/dL (7-18); eGFR NON AFRICAN AMERICAN > 90 mL/min (90-120)
[2019-12-20 07:34] LABS: GLUCOSE 202 mg/dL (74-106)
[2019-12-20 09:41] VITALS: BP 106/59
[2019-12-20 11:27] VITALS: BP 92/47
--- NOTE | 2019-12-20 17:03 | NUR ---
I have reviewed this patient and I concur with the Shift Assessment completed by the Licensed Practical Nurse today this shift.
--- NOTE | 2019-12-20 19:00 | NUR ---
REPORT RECEIVED, WILL CONTINUE POC. PATIENT IS AAOX4, LYING IN SUPINE POSITION. NO S/S OF DISTRESS OBSERVED, RR EVEN AND UNLABORED ON 4L VIA NC. PATIENT DENIES NEEDS AT THIS TIME. AT BEDSIDE. CL IN REACH, BED LOCKED AND LOWERED. WILL CTM.
--- NOTE | 2019-12-20 22:26 | NUR ---
REPORT CALLED TO TC FARRIS ON MED/SURG. PATIENT GOING TO 2210.
--- NOTE | 2019-12-20 23:00 | NUR ---
RECEIVED PT FROM [facility]. PT ALERT AND ORIENTED. IRRITABLE. STARTS YELLING AT AND CRYING. C/O PAIN IN RIBS. NOT TIME FOR PAIN MED YET. EXPLAINED SHE COULD HAVE IT IN 45 MINUTES. RESP NONLABORED. O2 @ 4L/NC. BRUISES NOTED TO BUE, RIBS, AND LT THIGH. OLD CVA WITH LT SIDED WEAKNESS. LUE IS IN A SLING. LT HAND IS CONTRACTURED. INCONT OF BLADDER AT TIMES. SALINE LOCK NOTED TO RT FOREARM. RATES PAIN IN RIBS 6. SR ELEVATED X2. CL IN REACH.
--- NOTE | 2019-12-20 23:52 | NUR ---
MEDICATED WITH [facility] FOR C/O RIB PAIN. CALMER. AT BEDSIDE. CL IN REACH.
[2019-12-21] VITALS: BP 109/57
--- NOTE | 2019-12-21 02:00 | NUR ---
RESTING QUIETLY WITH EYES CLOSED. RESP NONLABORED. NO DISTRESS. AT BEDSIDE. CL IN REACH.
[2019-12-21 04:00] VITALS: BP 121/69
--- NOTE | 2019-12-21 05:55 | NUR ---
MEDICATED WITH [facility] FOR C/O RIB PAIN. SPOUSE AT BEDSIDE. CL IN REACH.
[2019-12-21 06:17] LABS: BASOPHILS 0.1 % (0-2); HEMATOCRIT 32.4 % (36.0-48.0); HEMOGLOBIN 10.5 g/dL (12-16); IMMATURE GRANULOCYTES 0.3 % (0-5); LYMPHOCYTES 22.8 % (15-50); MCH 26.6 pg (26.0-34.0); MCHC 32.4 g/dL (31.0-37.0); MEAN PLATELET VOLUME 9.5 fL (7.4-10.4); MONOCYTES 11.4 % (2-11); NEUTROPHILS 63.4 % (40-80); RBC 3.95 10x6/uL (4.00-5.40); RDW 16.1 % (11.5-14.5)
--- NOTE | 2019-12-21 06:28 | NUR ---
SIGNED KEERTHI WAIVER AT THIS TIME. PT AWARE OF RISKS OF NOT HAVING BED ALARM.
[2019-12-21 06:45] LABS: PLATELET COUNT 294 10x3/uL (130-400)
[2019-12-21 07:08] LABS: CALC OSMOLALITY 275 mosm/kg (275-300); CALCIUM 8.5 mg/dL (8.5-10.1); CARBON DIOXIDE 29.5 mmol/L (21.0-32.0); CHLORIDE - SERUM 103 mmol/L (98-107); CREATININE - SERUM 0.5 mg/dL (0.6-1.3); GLUCOSE 112 mg/dL (74-106); POTASSIUM - SERUM 3.9 mmol/L (3.5-5.1); SODIUM 138 mmol/L (136-145); UREA NITROGEN 11 mg/dL (7-18); eGFR NON AFRICAN AMERICAN > 90 mL/min (90-120)
--- NOTE | 2019-12-21 08:25 | NUR ---
PT RESTING QUIETLY IN BED. RESP EVEN AND UNLABORED. SPOUSE AT BEDSIDE. SALINE LOC TO RIGHT FOREARM, SLING TO LEFT ARM. DENIES FURTHER NEEDS AT THIS TIME. CL WITHIN REACH. ENCOURAGED TO CALL WITH NEEDS. CONTINUE POC
[2019-12-21 08:46] VITALS: BP 97/60
[2019-12-21 12:17] VITALS: BP 117/67
[2019-12-21 16:53] VITALS: BP 106/61
[2019-12-21 19:16] LABS: BILIRUBIN NEGATIVE (NEGATIVE); GLUCOSE 100 mg/dL (NEGATIVE); KETONE NEGATIVE (NEGATIVE); NITRITE NEGATIVE (NEGATIVE); UROBILINOGEN NORMAL (NORMAL)
[2019-12-21 20:00] VITALS: BP 114/69
[2019-12-22 04:00] VITALS: BP 127/78
--- NOTE | 2019-12-22 05:18 | NUR ---
I have reviewed this patient and I concur with the Shift Assessment completed by the Licensed Practical Nurse today this shift.
[2019-12-22 07:01] LABS: BASOPHILS 0 % (0-2); EOSINOPHILS 0 % (0-7); HEMATOCRIT 32.9 % (36.0-48.0); HEMOGLOBIN 10.8 g/dL (12-16); IMMATURE GRANULOCYTES 0.5 % (0-5); LYMPHOCYTES 14.8 % (15-50); MCH 26.9 pg (26.0-34.0); MCHC 32.8 g/dL (31.0-37.0); MCV 81.8 fL (80.0-100.0); MEAN PLATELET VOLUME 9.5 fL (7.4-10.4); MONOCYTES 7.1 % (2-11); NEUTROPHILS 77.6 % (40-80); RBC 4.02 10x6/uL (4.00-5.40); RDW 15.9 % (11.5-14.5)
[2019-12-22 07:13] LABS: PLATELET COUNT 361 10x3/uL (130-400); WBC 5.9 10x3/uL (4.8-10.8)
[2019-12-22 07:18] LABS: CALC OSMOLALITY 276 mosm/kg (275-300); CALCIUM 8.8 mg/dL (8.5-10.1); CARBON DIOXIDE 28.8 mmol/L (21.0-32.0); CHLORIDE - SERUM 102 mmol/L (98-107); CREATININE - SERUM 0.5 mg/dL (0.6-1.3); GLUCOSE 178 mg/dL (74-106); POTASSIUM - SERUM 3.8 mmol/L (3.5-5.1); PRO BNP 872 pg/mL (0-125); SODIUM 137 mmol/L (136-145); UREA NITROGEN 11 mg/dL (7-18); eGFR NON AFRICAN AMERICAN > 90 mL/min (90-120)
--- NOTE | 2019-12-22 08:38 | NUR ---
PT RESTING QUIETLY IN BED WITH EYES CLOSED. RESP UNLABORED. O2 @ 2L NC IN PLACE. DENIES PAIN AT THIS TIME. SALINE LOC TO RIGHT FOREARM, SITE WITHOUT REDNESS OR EDEMA. DENIES PAIN AT THIS TIME. CL WITHIN REACH. ENCOURAGED TO CALL WITH NEEDS. CONTINUE POC
[2019-12-22 09:48] VITALS: BP 111/71
[2019-12-22 12:58] VITALS: BP 135/67
[2019-12-22 17:23] VITALS: BP 130/62
[2019-12-22 20:00] VITALS: BP 115/71
[2019-12-23] VITALS: BP 121/73
[2019-12-23 04:00] VITALS: BP 138/83
--- NOTE | 2019-12-23 04:12 | NUR ---
I have reviewed this patient and I concur with the Shift Assessment completed by the Licensed Practical Nurse today this shift.
[2019-12-23 05:34] LABS: BASOPHILS 0 % (0-2); EOSINOPHILS 0 % (0-7); HEMATOCRIT 33.6 % (36.0-48.0); HEMOGLOBIN 10.9 g/dL (12-16); IMMATURE GRANULOCYTES 0.5 % (0-5); LYMPHOCYTES 11.9 % (15-50); MCH 26.7 pg (26.0-34.0); MCHC 32.4 g/dL (31.0-37.0); MCV 82.4 fL (80.0-100.0); MEAN PLATELET VOLUME 9.6 fL (7.4-10.4); MONOCYTES 5.6 % (2-11); PLATELET COUNT 437 10x3/uL (130-400); RBC 4.08 10x6/uL (4.00-5.40); WBC 10.2 10x3/uL (4.8-10.8)
[2019-12-23 05:59] LABS: CALC OSMOLALITY 277 mosm/kg (275-300); CALCIUM 8.9 mg/dL (8.5-10.1); CARBON DIOXIDE 29.9 mmol/L (21.0-32.0); CHLORIDE - SERUM 103 mmol/L (98-107); CREATININE - SERUM 0.6 mg/dL (0.6-1.3); GLUCOSE 143 mg/dL (74-106); POTASSIUM - SERUM 3.9 mmol/L (3.5-5.1); SODIUM 138 mmol/L (136-145); UREA NITROGEN 13 mg/dL (7-18); eGFR NON AFRICAN AMERICAN > 90 mL/min (90-120)
--- NOTE | 2019-12-23 07:05 | NUR ---
A&O RESTING IN BED WITH EYES OPEN. NO C/O PAIN. NO S/S OF ACUTE DISTRESS NOTED. UP WITH ASSIST. ON 2L O2, NC. LEFT ARM CONTRACTURE AND IN SLING. IV TO RIGHT FOREARM, NS INFUSING @ KVO. SITE PATENT WITHOUT REDNESS OR SWELLING. DENIES ANY NEEDS AT THIS TIME. CALL LIGHT IN REACH. WILL CONTINUE TO MONITOR.
--- NOTE | 2019-12-23 08:19 | EC ---
PATIENT:BRAXTON DAVIS DATE OF SERVICE: 12/19/19 SEX: F MEDICAL RECORD: [id number] DATE OF : 50 LOCATION:[facility] AGE OF PATIENT: 69 ADMISSION DATE: 12/19/19 REFERRING PHYSICIAN: INTERPRETING PHYSICIAN: MAJO GONZALEZ MD ECHOCARDIOGRAM REPORT ECHO CHARGES 4 ECHO COMPLETE Date: 12/22/19 CLINICAL DIAGNOSIS: SOB ECHOCARDIOGRAPHIC MEASUREMENTS (adult normal given) AC root (d.<3.7cm) cm LV Septum d (<1.2 cm> 0.9 cm Valve Excursion cm LV Septum (systole) 1.3 cm Left Atria (s.<4.0cm> 3.8 cm LVPW d(<1.2cm) 0.9 cm RV (d.<2.3cm) 3.3 cm LVPW (sytole) 1.1 cm LV diastole(<5.6CM) 4.6 cm MV E-F(>70mm/sec) cm LV systole 2.8 cm LVOT Diameter 1.5 cm MV exc.(>10mm) cm Est.ejection fraction (50-75%) % DOPPLER: LVIT cm/sec A 59 cm/sec E 41 cm/sec LA cm/sec RVSP 16.5 mmHg LVOT 77 cm/sec AOP1/2T m/s Asc. Ao 183 cm/sec RVOT cm/sec RA cm/sec PA cm/sec AV Gradient Peak 13.4 mmHg AV Mean 6.3 mmHg AV Area 0.8 cm MV Gradient Peak 4.6 mmHg MV Mean 2.4 mmHg MV Area cm COMMENTS: Merchandise Team Manager: Suki GOOD Computer Sciences Professor: 3 Dr. Gomez TAPE# PACS Pericardial Effusion N DATE OF SERVICE: Adequate 2D, color flow imaging, spectral Doppler, and M-Mode. No LVH. LV internal dimension is normal. Wall motion is normal. EF is greater than or equal to 55%. Aortic valve is tricuspid. No evidence of stenosis by Doppler interrogation. Left atrium is normal. Mitral valve shows no prolapse. Trace MR. Right-sided chambers are grossly normal. Trace TR. TRANSINT:[id number] Voice Confirmation ID: [id number] DOCUMENT ID: [id number] ECHOCARDIOGRAM REPORT [id number] BRAXTON DAVIS MAOJ GONZALEZ MD at 0819 CC: [id number] DICTATION DATE: 12/22/19 1513 GANDY DANCER: 12/22/192026 ADM IN [place] [id number] [id number]
[2019-12-23 09:17] VITALS: BP 154/75
--- NOTE | 2019-12-23 10:54 | MORECARE ---
CASE MANAGEMENT DISCHARGE SUMMARY PATIENT: BRAXTON DAVIS UNIT: [id number] ADM DATE: 12/19/19 AGE: 69 : 50 SEX: F ROOM/BED: D[facility] AUTHOR: MARK CORADO PHYSICIAN: REFERRING PHYSICIAN: KHUSHI WOODS MD DATE OF SERVICE: 12/23/19 Discharge Plan Patient Name: BRAXTON DAVIS Facility: [facility]:[place] : 1950 Planned Disposition: Inpatient Rehab Anticipated Discharge Date: Discharge Date: Expected LOS: Initial Reviewer: [email or web address] Initial Review Date: 12/19/2019 Generated: 12/23/19 11:53 am Coverage Notice Reviewer: [email or web address] Jason Herrera Notice Issued Date-Time: 12/23/2019 10:30 Notice Type: IM Discharge Notice Notice Delivered To: Family Member Relationship to Patient: Spouse Car Worker Helper Name: BETO Delivery Method: HAND - Hand Delivered Coco Days: Prior Verbal Notification: Recipient Understood Notice: Yes Recipient Signature: Yes Med Rec Note Co-signed by Attending: Coverage Notice Comment: IMM SERVED AND EXPLAINED TO BOTH PATIENT AND SPOUSE Reviewer: [email or web address] Jason Herrera Notice Issued Date-Time: 12/23/2019 10:30 Notice Type: Patient Choice Letter Notice Delivered To: Family Member Relationship to Patient: Spouse Car Worker Helper Name: BETO Delivery Method: HAND - Hand Delivered Coco Days: Prior Verbal Notification: Recipient Understood Notice: Yes Recipient Signature: Yes Med Rec Note Co-signed by Attending: Coverage Notice Comment: SIGNED BY BETO Patient Name: BRAXTON DAVIS Page [phone] at 1054 All edits/amendments must be made on the electronic document DICTATION DATE: 12/23/19 1053 CARD MOUNTER: CORTEZ 12/23/19 1053 RPT#: [id number] DC DATE: STATUS: ADM IN [facility] [address] [place] [address] END OF REPORT
--- NOTE | 2019-12-23 11:01 | MORECARE ---
CASE MANAGEMENT DISCHARGE SUMMARY PATIENT: BRAXTON DAVIS UNIT: [id number] ADM DATE: 12/19/19 AGE: 69 : 50 SEX: F ROOM/BED: D.[facility] AUTHOR: MARK CORADO PHYSICIAN: REFERRING PHYSICIAN: KHUSHI WOODS MD DATE OF SERVICE: 12/23/19 Discharge Plan Patient Name: BRAXTON DAVIS Facility: [facility] : 1950 Planned Disposition: Inpatient Rehab Anticipated Discharge Date: Discharge Date: Expected LOS: Initial Reviewer: [email or web address] Initial Review Date: 12/19/2019 Generated: 12/23/19 12:01 pm DCPIA - Discharge Planning Initial Assessment Updated by [id number]: Judy Herrera on 12/23/19 10:55 am * Is the patient Alert and Oriented? Yes * How many steps to enter\exit or inside your home? * PCP ISIDRO CLEARY * [facility] * Preadmission Environment Home with Family * ADLs Partial Dependent * Partial ADLs (Assistance needed) Medication Management * Equipment Bedside Commode Cane Nebulizer Wheelchair * List name and contact numbers for known caregivers / representatives who currently or will assist patient after discharge: BETO ( SPOUSE ) [phone] * Verbal permission to speak to the caregivers and representatives has been obtained from the patient. Yes * Community resources currently utilized None * Additional services required to return to the preadmission environment? Yes * Can the patient safely return to the preadmission environment? Yes * Has this patient been hospitalized within the prior 30 days at any hospital? Yes Coverage Notice Reviewer: [email or web address] Jason Herrera Notice Issued Date-Time: 12/23/2019 10:30 Notice Type: IM Discharge Notice Notice Delivered To: Family Member Relationship to Patient: Spouse Reporting Process Consultant Name: BETO Delivery Method: HAND - Hand Delivered Coco Days: Prior Verbal Notification: Recipient Understood Notice: Yes Recipient Signature: Yes Med Rec Note Co-signed by Attending: Coverage Notice Comment: IMM SERVED AND EXPLAINED TO BOTH PATIENT AND SPOUSE Reviewer: [id number] Jason Herrera Notice Issued Date-Time: 12/23/2019 10:30 Notice Type: Patient Choice Letter Notice Delivered To: Family Member Relationship to Patient: Spouse Reporting Process Consultant Name: BETO Delivery Method: HAND - Hand Delivered Coco Days: Prior Verbal Notification: Recipient Understood Notice: Yes Recipient Signature: Yes Med Rec Note Co-signed by Attending: Coverage Notice Comment: SIGNED BY BETO ROLON export: 12/23/19 9:54 a Patient Name: BRAXTON DAVIS Page [phone] at 1101 All edits/amendments must be made on the electronic document DICTATION DATE: 12/23/19 110 DRONE PILOT: CORTEZ 12/23/19 1101 RPT#: [id number] DC DATE: STATUS: ADM IN [facility] [address] [place] [address] END OF REPORT
--- NOTE | 2019-12-23 11:08 | MORECARE ---
CASE MANAGEMENT DISCHARGE SUMMARY PATIENT: BRAXTON DAVIS UNIT: [id number] ADM DATE: 12/19/19 AGE: 69 : 50 SEX: F ROOM/BED: D.2211 AUTHOR: MARK CORADO PHYSICIAN: REFERRING PHYSICIAN: KHUSHI WOODS MD DATE OF SERVICE: 12/23/19 Discharge Plan Patient Name: BRAXTON DAVIS Facility: [facility]:[place] : 1950 Planned Disposition: Inpatient Rehab Anticipated Discharge Date: Discharge Date: Expected LOS: Initial Reviewer: [id number] Initial Review Date: 12/19/2019 Generated: 12/23/19 12:07 pm Comments DCP- Discharge Planning Updated by [email or web address]: Judy Herrera on 12/23/19 10:[address] Patient Name: BRAXTON DAVIS Admission Status: ER Accout number: [id number] Admission Date: 12-19-2019 : 1950 Admission Diagnosis:SHORTNESS OF BREATH Attending: CHUCK, Current LOS: 4 Anticipated DC Date: Planned Disposition: Inpatient Rehab Primary Insurance: MEDICARE A & B Discharge Planning Comments: CM met with patient to complete initial dc planning assessment. CM educated patient on the CM role and verbal consent given by patient to complete assessment. Patient lives at home with her spouse where she is very dependent on. She has very high anxiety when her spouse is not with her. We spoke at length with the patient and spouse about dc plan. At discharge patient plans to go to inpatient rehab at [facility], if her spouse can stay the night with her and feels this is a safe discharge. CM discussed availability of home health, rehab services, and medical equipment. She has a wheelchair, cane, nebulizer at home. She does not have home O2 and did not qualify for it this time. During her walk test with RT the lowest POX was 91%. MICHELLE signed and explained. IMM also explained and copy placed in chart. Patient denied known discharge needs at this time. CM will continue to follow and will assist as needed with dc plans/needs. Waitress: Judy Herrera DCPIA - Discharge Planning Initial Assessment Updated by [id number]: Judy Herrera on 12/23/19 10:55 am * Is the patient Alert and Oriented? Yes * How many steps to enter\exit or inside your home? * PCP ISIDRO CLEARY * Pharmacy [facility] [address] * Preadmission Environment Home with Family * ADLs Partial Dependent * Partial ADLs (Assistance needed) Medication Management * Equipment Bedside Commode Cane Nebulizer Wheelchair * List name and contact numbers for known caregivers / representatives who currently or will assist patient after discharge: BETO ( SPOUSE ) [phone] * Verbal permission to speak to the caregivers and representatives has been obtained from the patient. Yes * Community resources currently utilized None * Additional services required to return to the preadmission environment? Yes * Can the patient safely return to the preadmission environment? Yes * Has this patient been hospitalized within the prior 30 days at any hospital? Yes Coverage Notice Reviewer: [id number] Jason Herrera Notice Issued Date-Time: 12/23/2019 10:30 Notice Type: IM Discharge Notice Notice Delivered To: Family Member Relationship to Patient: Spouse Riding Silks Custodian Name: BETO Delivery Method: HAND - Hand Delivered Coco Days: Prior Verbal Notification: Recipient Understood Notice: Yes Recipient Signature: Yes Med Rec Note Co-signed by Attending: Coverage Notice Comment: IMM SERVED AND EXPLAINED TO BOTH PATIENT AND SPOUSE Reviewer: [email or web address] Jason Herrera Notice Issued Date-Time: 12/23/2019 10:30 Notice Type: Patient Choice Letter Notice Delivered To: Family Member Relationship to Patient: Spouse Riding Silks Custodian Name: BETO Delivery Method: HAND - Hand Delivered Coco Days: Prior Verbal Notification: Recipient Understood Notice: Yes Recipient Signature: Yes Med Rec Note Co-signed by Attending: Coverage Notice Comment: SIGNED BY BETO ROLON export: 12/23/19 10:01 a Patient Name: BRAXTON DAVIS Page [phone] at 1108 All edits/amendments must be made on the electronic document DICTATION DATE: 12/23/191107 BREAKFAST HOSTESS: CORTEZ 12/23/191107 RPT#: [id number] DC DATE: STATUS: ADM IN [facility] [address] [place] [address] END OF REPORT
[2019-12-23] MEDS ORDERED: IPRAT-ALBUT 0.5-3 ML INH (11:42)
[2019-12-23] MEDS ORDERED: IPRAT-ALBUT 0.5-3 ML UPD ×2 (11:42)
[2019-12-23] MEDS ORDERED: Zosyn 3.375 GM/D5W 5 IV (11:42)
[2019-12-23] MEDS ORDERED: LOVENOX40 MG/0.4 SC (11:42)
[2019-12-23] MEDS ORDERED: PERFOROMIS20 MCG/21 UPD (11:42)
[2019-12-23] MEDS ORDERED: PULMICORT0.5 MG/21 UPD (11:43)
[2019-12-23] MEDS ORDERED: TESSALON PERLE100 MG PO (11:43)
[2019-12-23] MEDS ORDERED: MUCINEX DM ER1 EAC1 PO (11:43)
[2019-12-23] MEDS ORDERED: ACETAMINOPHEN325 MG PO (11:43)
[2019-12-23] MEDS ORDERED: Morphine Sulfate IV (11:43)
[2019-12-23] MEDS ORDERED: MIRALAX17 GM PO (11:44)
[2019-12-23] MEDS ORDERED: COLACE100 MG PO (11:44)
[2019-12-23] MEDS ORDERED: SOLU-MEDRO40 MG/1 M1 IV (11:44)
[2019-12-23 12:53] VITALS: BP 137/68
--- NOTE | 2019-12-23 14:18 | MORECARE ---
CASE MANAGEMENT DISCHARGE SUMMARY PATIENT: BRAXTON DAVIS UNIT: [id number] ADM DATE: 12/19/19 AGE: 69 : 50 SEX: F ROOM/BED: D.2211 AUTHOR: MARK CORADO PHYSICIAN: REFERRING PHYSICIAN: KHUSHI WOODS MD DATE OF SERVICE: 12/23/19 Discharge Plan Patient Name: BRAXTON DAVIS Facility: [facility]:[place] : 1950 Planned Disposition: Inpatient Rehab Anticipated Discharge Date: Discharge Date: Expected LOS: Initial Reviewer: [email or web address] Initial Review Date: 12/19/2019 Generated: 12/23/19 3:17 pm Comments DCP- Discharge Planning Updated by [id number]: Judy Herrera on 12/23/19 1:[address] PATIENT WILL BE DISCHARGING TO INPATIENT REHAB TODAY AND THEY SAID THAT HER WILL BE ABLE TO STAY WITH HER DCP- Discharge Planning Updated by [id number]: Judy Herrera on 12/23/19 10:[address] Patient Name: BRAXTON ADVIS Admission Status: ER Accout number: [id number] Admission Date: 12-19-2019 : 1950 Admission Diagnosis:SHORTNESS OF BREATH Attending: CHUCK, Current LOS: 4 Anticipated DC Date: Planned Disposition: Inpatient Rehab Primary Insurance: MEDICARE A & B Discharge Planning Comments: CM met with patient to complete initial dc planning assessment. CM educated patient on the CM role and verbal consent given by patient to complete assessment. Patient lives at home with her spouse where she is very dependent on. She has very high anxiety when her spouse is not with her. We spoke at length with the patient and spouse about dc plan. At discharge patient plans to go to inpatient rehab at [facility], if her spouse can stay the night with her and feels this is a safe discharge. CM discussed availability of home health, rehab services, and medical equipment. She has a wheelchair, cane, nebulizer at home. She does not have home O2 and did not qualify for it this time. During her walk test with RT the lowest POX was 91%. MICHELLE signed and explained. IMM also explained and copy placed in chart. Patient denied known discharge needs at this time. CM will continue to follow and will assist as needed with dc plans/needs. Auxiliary Operator: Judy Herrera DCPIA - Discharge Planning Initial Assessment Updated by [id number]: Judy Herrera on 12/23/19 10:55 am * Is the patient Alert and Oriented? Yes * How many steps to enter\exit or inside your home? * PCP ISIDRO CLEARY * Pharmacy [facility] [address] * Preadmission Environment Home with Family * ADLs Partial Dependent * Partial ADLs (Assistance needed) Medication Management * Equipment Bedside Commode Cane Nebulizer Wheelchair * List name and contact numbers for known caregivers / representatives who currently or will assist patient after discharge: BETO ( SPOUSE ) [phone] * Verbal permission to speak to the caregivers and representatives has been obtained from the patient. Yes * Community resources currently utilized None * Additional services required to return to the preadmission environment? Yes * Can the patient safely return to the preadmission environment? Yes * Has this patient been hospitalized within the prior 30 days at any hospital? Yes Coverage Notice Reviewer: [id number] Jason Herrera Notice Issued Date-Time: 12/23/2019 10:30 Notice Type: IM Discharge Notice Notice Delivered To: Family Member Relationship to Patient: Spouse Fly Raiser Lockstitch Name: BETO Delivery Method: HAND - Hand Delivered Coco Days: Prior Verbal Notification: Recipient Understood Notice: Yes Recipient Signature: Yes Med Rec Note Co-signed by Attending: Coverage Notice Comment: IMM SERVED AND EXPLAINED TO BOTH PATIENT AND SPOUSE Reviewer: [id number] Jason Herrera Notice Issued Date-Time: 12/23/2019 10:30 Notice Type: Patient Choice Letter Notice Delivered To: Family Member Relationship to Patient: Spouse Fly Raiser Lockstitch Name: BETO Delivery Method: HAND - Hand Delivered Coco Days: Prior Verbal Notification: Recipient Understood Notice: Yes Recipient Signature: Yes Med Rec Note Co-signed by Attending: Coverage Notice Comment: SIGNED BY BETO ROLON export: 12/23/19 10:08 a Patient Name: BRAXTON DAVIS Page [phone] at 1418 All edits/amendments must be made on the electronic document DICTATION DATE: 12/23/19 1417 PICTURE COPYIST: CORTEZ 12/23/19 1417 RPT#: [id number] DC DATE: STATUS: ADM IN [facility] [address] [place] [address] END OF REPORT
--- NOTE | 2019-12-23 14:30 | NUR ---
PATIENT IN BED. FAMILY AT BEDSIDE. DENIES PAIN OR NEEDS AT THIS TIME.
--- NOTE | 2019-12-23 16:34 | NUR ---
DISCHARGED PATIENT TO INPATIENT REHAB. CALLED REPORT TO [facility]. LEFT IV IN FOR CONTINUATION OF IV ANTIBIOTICS. WENT OVER DISCHARGE INSTRUCTIONS WITH PATIENT AND SPOUSE, VERBALIZED UNDERSTANDING. DENIES ANYTHING FURTHER.
--- NOTE | 2019-12-26 09:27 | MORECARE ---
CASE MANAGEMENT DISCHARGE SUMMARY PATIENT: BRAXTON DAVIS UNIT: [id number] ADM DATE: 12/19/19 AGE: 69 : 50 SEX: F ROOM/BED: D.2211 AUTHOR: MARK CORADO PHYSICIAN: REFERRING PHYSICIAN: KHUSHI WOODS MD DATE OF SERVICE: 12/26/19 Discharge Plan Patient Name: BRAXTON DAVIS Facility: [facility]:[place] : 1950 Planned Disposition: Inpatient Rehab Anticipated Discharge Date: Discharge Date: 12/23/2019 Expected LOS: Initial Reviewer: [email or web address] Initial Review Date: 12/19/2019 Generated: 12/26/19 10:26 am Comments DCP- Discharge Planning Updated by [email or web address]: Judy Herrera on 12/23/19 1:[address] PATIENT WILL BE DISCHARGING TO INPATIENT REHAB TODAY AND THEY SAID THAT HER WILL BE ABLE TO STAY WITH HER DCP- Discharge Planning Updated by [id number]: Judy Herrera on 12/23/19 10:[address] Patient Name: BRAXTON DAVIS Admission Status: ER Accout number: [id number] Admission Date: 12-19-2019 : 1950 Admission Diagnosis:SHORTNESS OF BREATH Attending: CHUCK, Current LOS: 4 Anticipated DC Date: Planned Disposition: Inpatient Rehab Primary Insurance: MEDICARE A & B Discharge Planning Comments: CM met with patient to complete initial dc planning assessment. CM educated patient on the CM role and verbal consent given by patient to complete assessment. Patient lives at home with her spouse where she is very dependent on. She has very high anxiety when her spouse is not with her. We spoke at length with the patient and spouse about dc plan. At discharge patient plans to go to inpatient rehab at [facility], if her spouse can stay the night with her and feels this is a safe discharge. CM discussed availability of home health, rehab services, and medical equipment. She has a wheelchair, cane, nebulizer at home. She does not have home O2 and did not qualify for it this time. During her walk test with RT the lowest POX was 91%. MICHELLE signed and explained. IMM also explained and copy placed in chart. Patient denied known discharge needs at this time. CM will continue to follow and will assist as needed with dc plans/needs. Airplane Rental Clerk: Judy Herrera DCPIA - Discharge Planning Initial Assessment Updated by [id number]: Judy Herrera on 12/23/19 10:55 am * Is the patient Alert and Oriented? Yes * How many steps to enter\exit or inside your home? * PCP ISIDRO CLEARY * Pharmacy [facility] [address] * Preadmission Environment Home with Family * ADLs Partial Dependent * Partial ADLs (Assistance needed) Medication Management * Equipment Bedside Commode Cane Nebulizer Wheelchair * List name and contact numbers for known caregivers / representatives who currently or will assist patient after discharge: BETO ( SPOUSE ) [phone] * Verbal permission to speak to the caregivers and representatives has been obtained from the patient. Yes * Community resources currently utilized None * Additional services required to return to the preadmission environment? Yes * Can the patient safely return to the preadmission environment? Yes * Has this patient been hospitalized within the prior 30 days at any hospital? Yes Coverage Notice Reviewer: [id number] Jason Herrera Notice Issued Date-Time: 12/23/2019 10:30 Notice Type: IM Discharge Notice Notice Delivered To: Family Member Relationship to Patient: Spouse Paint Prep Technician Name: BETO Delivery Method: HAND - Hand Delivered Coco Days: Prior Verbal Notification: Recipient Understood Notice: Yes Recipient Signature: Yes Med Rec Note Co-signed by Attending: Coverage Notice Comment: IMM SERVED AND EXPLAINED TO BOTH PATIENT AND SPOUSE Reviewer: [id number] Jason Herrera Notice Issued Date-Time: 12/23/2019 10:30 Notice Type: Patient Choice Letter Notice Delivered To: Family Member Relationship to Patient: Spouse Paint Prep Technician Name: BETO Delivery Method: HAND - Hand Delivered Coco Days: Prior Verbal Notification: Recipient Understood Notice: Yes Recipient Signature: Yes Med Rec Note Co-signed by Attending: Coverage Notice Comment: SIGNED BY BETO ROLON export: 12/23/19 1:18 p Patient Name: BRAXTON DAVIS Page [phone] at 0927 All edits/amendments must be made on the electronic document DICTATION DATE: 08/24/20 0926 INSURANCE COMMISSIONER: CORTEZ 12/26/19925 RPT#: [id number] DC DATE:12/23/19 STATUS: DIS IN [facility] [address] [place] [address] END OF REPORT
== END 2019-12-23 16:37 | DRG 193 ==
LOC: D.ER 22:48 → D.EDHOLD 12-19 01:20 → OBSVTIME 12-19 01:20 → D.M2 12-19 01:20 → D.EDHOLD 12-19 07:43 → D.MS 12-19 08:38 → D.M2 12-19 08:38 → D.MS 12-20 23:10
PROVIDERS: Family Medicine; ADMIT Family Medicine; ATTEND Family Medicine
DX: J18.9 Pneumonia, unspecified organism (principal); J96.01 Acute respiratory failure with hypoxia; S42.302A Unspecified fracture of shaft of humerus, left arm, initial encounter for closed fracture; S22.42XA Multiple fractures of ribs, left side, initial encounter for closed fracture; J44.0 Chronic obstructive pulmonary disease with (acute) lower respiratory infection; E87.6 Hypokalemia; I25.10 Atherosclerotic heart disease of native coronary artery without angina pectoris; W19.XXXA Unspecified fall, initial encounter; I10 Essential (primary) hypertension; E78.5 Hyperlipidemia, unspecified; Z86.73 Personal history of transient ischemic attack (TIA), and cerebral infarction without residual deficits; D64.9 Anemia, unspecified

== ENCOUNTER 2019-12-23 16:36 | Inpatient (IN) | payer MEDICARE ==
[~2019-12-23] VITALS: Ht 157.5 cm; Wt 53.5 kg
[~2019-12-23 16:36] MED LIST changes: +ACETAMINOPHEN325 MG PO; +COLACE100 MG PO; +IPRAT-ALBUT 0.5-3 ML INH; +IPRAT-ALBUT 0.5-3 ML UPD; +LOVENOX40 MG/0.4 SC; +MIRALAX17 GM PO; +MUCINEX DM ER1 EAC1 PO; +Morphine Sulfate IV; +PERFOROMIS20 MCG/21 UPD; +PULMICORT0.5 MG/21 UPD; +SOLU-MEDRO40 MG/1 M1 IV; +TESSALON PERLE100 MG PO; +Zosyn 3.375 GM/D5W 5 IV
--- NOTE | 2019-12-23 19:50 | NUR ---
RECEIVED IN BED WITH AT BEDSIDE. DENIES ANY NEEDS, BUT REQUESTED A PAIN PILL WITH HS. MEDS. MONITOR FOR SAFETY. CONTINUE PLAN OF CARE.
--- NOTE | 2019-12-23 23:25 | NUR ---
NORCO 5/325 MG GIVEN FOR LEVEL #8 PAIN IN RIBS AND SHOULDER.
[2019-12-24 03:30] VITALS: BP 132/64
--- NOTE | 2019-12-24 03:58 | NUR ---
PATIENT EYES CLOSED. RESPIRATIONS 18 & EVEN. NO ADVERSE REACTION TO IV ZOSYN. BED LOW. ALARM ON. CALL LIGHT WITHIN REACH. WILL CONTINUE TO MONITOR.
[2019-12-24 04:36] VITALS: BP 132/64; BMI 21.6
[2019-12-24 06:00] LABS: BASOPHILS 0.1 % (0-2); EOSINOPHILS 0 % (0-7); HEMATOCRIT 37.8 % (36.0-48.0); HEMOGLOBIN 12.1 g/dL (12-16); IMMATURE GRANULOCYTES 0.4 % (0-5); LYMPHOCYTES 14.8 % (15-50); MCH 26.6 pg (26.0-34.0); MCV 83.1 fL (80.0-100.0); MEAN PLATELET VOLUME 9.3 fL (7.4-10.4); MONOCYTES 4.6 % (2-11); NEUTROPHILS 80.1 % (40-80); PLATELET COUNT 490 10x3/uL (130-400); RBC 4.55 10x6/uL (4.00-5.40); WBC 9.8 10x3/uL (4.8-10.8)
[2019-12-24 06:44] LABS: CALC OSMOLALITY 276 mosm/kg (275-300); CARBON DIOXIDE 24.6 mmol/L (21.0-32.0); CHLORIDE - SERUM 100 mmol/L (98-107); CREATININE - SERUM 0.6 mg/dL (0.6-1.3); GLUCOSE 141 mg/dL (74-106); POTASSIUM - SERUM 3.7 mmol/L (3.5-5.1); SODIUM 137 mmol/L (136-145); UREA NITROGEN 15 mg/dL (7-18); eGFR NON AFRICAN AMERICAN > 90 mL/min (90-120)
--- NOTE | 2019-12-24 08:00 | NUR ---
SITTING UP IN BED EATING BREAKFAST, DENIES ANY NEEDS AT THIS TIME, C/L AND FLUIDS IN REACH.
[2019-12-24 08:37] VITALS: BP 135/77
--- NOTE | 2019-12-24 11:00 | NUR ---
I have reviewed this patient and I concur with the Shift Assessment completed by the Licensed Practical Nurse today this shift.
[2019-12-24 11:12] VITALS: Ht 157.5 cm; Wt 53.5 kg
--- NOTE | 2019-12-24 11:57 | NUR ---
UP IN W/C WITH OT, SHOWER TAKEN, DENIES ANY NEEDS AT THIS TIME, C/L AND FLUIDS IN REACH.
--- NOTE | 2019-12-24 16:07 | NUR ---
RESTING IN BED WITH EYES CLOSED, RESP EVEN AND UNLABORED, NO S/S OF DISTRESS NOTED, C/L AND FLUIDS IN REACH.
[2019-12-24 20:00] VITALS: BP 101/75
--- NOTE | 2019-12-25 04:48 | NUR ---
RESTING QUIETLY IN BED. NO S/S OF DISTRESS NOTED. RESP EVEN AND UNLABORED. C/L IN EASY REACH. CONTINUE POC.
--- NOTE | 2019-12-25 07:00 | NUR ---
RECEIVED REPORT, ASSUMED CARE, PT SLEEPING, BREATHING EVEN UNLABORED, CALL LIGHT IN REACH, BED ALARM ON, BED LOWEST POSITION, NO S/S OF DISTRESS NOTED, WILL CONTINUE POC
[2019-12-25 08:00] VITALS: BP 160/90
--- NOTE | 2019-12-25 16:52 | NUR ---
I have reviewed this patient and I concur with the Shift Assessment completed by the Licensed Practical Nurse today this shift.
[2019-12-25 21:31] VITALS: BP 122/69
[2019-12-26 06:21] LABS: BASOPHILS 0.1 % (0-2); EOSINOPHILS 0.4 % (0-7); HEMOGLOBIN 12.4 g/dL (12-16); IMMATURE GRANULOCYTES 0.4 % (0-5); LYMPHOCYTES 27.7 % (15-50); MCH 26.4 pg (26.0-34.0); MCHC 31.8 g/dL (31.0-37.0); MEAN PLATELET VOLUME 9.2 fL (7.4-10.4); MONOCYTES 6.4 % (2-11); PLATELET COUNT 459 10x3/uL (130-400); RDW 15.8 % (11.5-14.5)
[2019-12-26 06:36] LABS: WBC 13.8 10x3/uL (4.8-10.8)
[2019-12-26 06:46] LABS: CALC OSMOLALITY 274 mosm/kg (275-300); CALCIUM 8.6 mg/dL (8.5-10.1); CARBON DIOXIDE 30.9 mmol/L (21.0-32.0); CHLORIDE - SERUM 101 mmol/L (98-107); CREATININE - SERUM 0.6 mg/dL (0.6-1.3); GLUCOSE 74 mg/dL (74-106); POTASSIUM - SERUM 4.1 mmol/L (3.5-5.1); SODIUM 137 mmol/L (136-145); UREA NITROGEN 18 mg/dL (7-18); eGFR NON AFRICAN AMERICAN > 90 mL/min (90-120)
[2019-12-26 07:41] VITALS: BP 144/74
--- NOTE | 2019-12-26 10:22 | NUR ---
PARTICIPATING IN THERAPY. FAMILY IN ROOM. NO DISTRESS NOTED.
--- NOTE | 2019-12-26 15:37 | NUR ---
REFUSED SHOWER. WANTS TO TAKE TOMORROW WHEN BRINGS HER SHAMPOO ETC FROM HOME. NO CHANGE IN ASSESSMENT.
[2019-12-26 19:00] VITALS: BP 106/64
--- NOTE | 2019-12-26 19:25 | NUR ---
PT IN BED, NO IMMEDIATE NEEDS NOTED, RESPIRATIONS EVEN, FALL PRECAUTIONS IN PLACE, FLUIDS/CALL LIGHT WITHIN REACH
--- NOTE | 2019-12-26 20:10 | NUR ---
PT REQUESTED PRN PAIN MEDICATION STATES LEVEL OF 10/11, PM MEDS GIVEN WITH PRN WHICH INCLUDED GABAPENTIN, PT STARTED CRYING STATING IT HURT REALLY BAD, I EXPLAINED THAT I JUST GAVE HER PAIN MEDICATION SHE HAS TO GIVE IT TIME TO TAKE EFFECT, RIGHT AFTER I LEFT THE ROOM PT CALLED HER CRYING THAT SHE WAS HURTING AND NEEDED HIM HERE, SHE WANTS TO COME HOME COME GET HER RIGHT NOW, AGREED TO COME STAY WITH HER TONIGHT, PT CALMED ALMOST IMMEDIATELY
--- NOTE | 2019-12-26 22:42 | NUR ---
PT HAS BEEN OUT TO DESK ON SEVERAL OCCASIONS WANTING PRN MORPHINE THAT PHARMACY RENEWED FOR [address] AVILES WANTED TO DO ABOUT PT'S PAIN, ASKED ABOUT BACLOPHEN WHICH IS NOT ON HER LIST OF MEDS. 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
--- NOTE | 2019-12-27 08:00 | NUR ---
PT RESTING IN BED WITH EYES OPEN CALL LIGHT IN REACH NO PROBLEMS WILL MONITER
--- NOTE | 2019-12-27 12:27 | NUR ---
PATIENT ADMITTED TO REHAB FROM ACUTE FLOOR. HER PCP IS DR. CLEARY. DME AT HOME IS A WHEELCAHIR, CANE, BEDSIDE COMMODE AND A NEBULIZER. DISCHARGE PLANS ARE FOR PATIENT TO RETURN HOME WITH HER SPOUSE. WILL CONTINUE TO FOLLOW WITH PATIENT.
--- NOTE | 2019-12-27 14:00 | NUR ---
Nutrition Follow-up: Diet: Cardiac PO intake: ~65% average x last 10 meals. Spoke with patient and spouse at bedside who states that patient is not eating foods rosario on tray. She does not like the hospital foods. states that she is eating well of the foods that he is bringing in from outside of the hospital. She is not interested in oral nutrition supplements. Last BM: 12/25/19 x 2. Wt: 118# (12/24/19) Meds noted: prednisone, miralax, IV abx. Labs reviewed. Recommend continue current diet. RD following.
--- NOTE | 2019-12-27 18:24 | NUR ---
PT RESTING IN BED WITH EYES OPEN CALL LIGHT IN REACH NO PROBLEMS WILL MONITER
--- NOTE | 2019-12-27 19:45 | NUR ---
PT SITTING UP IN BED WATCHING TV, EATING, IN ROOM, NO NEEDS NOTED, RESPIRATIONS EVEN/UNLABORED, FALL PRECAUTIONS IN PLACE, FLUIDS/CALL LIGHT WITHIN REACH
--- NOTE | 2019-12-27 20:49 | NUR ---
PT C/O PAIN LEFT SHOULDER AND ARM, 0.25 PRN IV MORPHINE GIVEN RIGHT WRIST , PIPPERCILLIN IV STARTED, NO OTHER NEEDS NOTED, PT NEEDS EVALUATED FOR ANXIETY MEDICATION
[2019-12-27 23:00] VITALS: BP 117/59
[2019-12-28 06:17] LABS: BASOPHILS 0 % (0-2); HEMATOCRIT 35.5 % (36.0-48.0); HEMOGLOBIN 11.5 g/dL (12-16); IMMATURE GRANULOCYTES 0.3 % (0-5); MCHC 32.4 g/dL (31.0-37.0); MCV 83.3 fL (80.0-100.0); MEAN PLATELET VOLUME 8.7 fL (7.4-10.4); MONOCYTES 8.4 % (2-11); NEUTROPHILS 64.3 % (40-80); PLATELET COUNT 445 10x3/uL (130-400); RBC 4.26 10x6/uL (4.00-5.40); RDW 16.4 % (11.5-14.5); WBC 11.4 10x3/uL (4.8-10.8)
[2019-12-28 07:10] LABS: CALC OSMOLALITY 272 mosm/kg (275-300); CALCIUM 8.3 mg/dL (8.5-10.1); CARBON DIOXIDE 26.3 mmol/L (21.0-32.0); CHLORIDE - SERUM 103 mmol/L (98-107); CREATININE - SERUM 0.6 mg/dL (0.6-1.3); GLUCOSE 102 mg/dL (74-106); POTASSIUM - SERUM 3.5 mmol/L (3.5-5.1); SODIUM 136 mmol/L (136-145); UREA NITROGEN 14 mg/dL (7-18); eGFR NON AFRICAN AMERICAN > 90 mL/min (90-120)
--- NOTE | 2019-12-28 08:00 | NUR ---
SITTING UP IN BED EATING BREAKFAST, IN ROOM, DENIES ANY NEEDS AT THIS TIME, C/L AND FLUIDS IN REACH.
[2019-12-28 08:10] VITALS: BP 139/72
--- NOTE | 2019-12-28 11:57 | NUR ---
RESTING IN BED WATCHING TV IN THE ROOM, DENIES ANY NEEDS AT THIS TIME, C/L AND FLUIDS IN REACH.
--- NOTE | 2019-12-28 12:07 | NUR ---
I have reviewed this patient and I concur with the Shift Assessment completed by the Licensed Practical Nurse today this shift.
[2019-12-28] MEDS ORDERED: PREDNISONE20 MG PO (12:22)
--- NOTE | 2019-12-28 12:23 | RHP ---
PATIENT: BRAXTON DAVIS MEDICAL RECORD: [id number] ACCOUNT: [id number] LOCATION:[facility] [address] : [birth year] ADMISSION DATE: 12/23/19 REHABILITATION HISTORY AND PHYSICAL EXAMINATION POST ADMISSION PHYSICIAN EXAMINATION ADMITTING DIAGNOSIS: Disuse myopathy. HISTORY OF PRESENT ILLNESS: The patient is a 69-year-old female patient who is admitted secondary to disuse myopathy. She presented to the ED on 12/18/2019 after being discharged from the hospital that afternoon, status post a fall with shoulder and rib pain and fracture. She was complaining of shortness of breath and inability to maintain her oxygen sats. She apparently had sats down in the 70s at home. She was 81% on room air here. The patient was in mild distress. The patient had decreased breath sounds in left lower lobe. She had a decreased blood pressure. 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 The patient had a fall 7 days prior to this and broke her left arm and also her 4th through 9th rib. She had been followed by Dr. Massey, no surgery was needed. The patient had a CTA with PE protocol, did not show any signs of a pulmonary embolus at that time. The patient has also got a history of breast cancer and bilateral mastectomies. She has had neoadjuvant chemotherapy and x-ray therapy. The patient had been having TIAs and has had an intracranial hemorrhage in the past. The patient previously was living with her , was moderately independent with a kiarra-walker for ADLs and mobility. The patient is currently set up for mod to max assist for ADLs. She has had prolonged immobility, progressive generalized weakness, especially in her left upper extremities. She is very fatigued. She is having a hard time getting from a sitting to stand and from bed to chair. She is highly motivated and has good family support to get back to her prior level of functioning. COMORBIDITIES: In this patient include acute respiratory failure, anxiety, COPD, debility, decrease in physical functioning, dyspnea, essential hypertension, falls and fatigue. PAST MEDICAL HISTORY: Significant for history of cancer. She has got a history of coronary artery disease, carotid disease. Got a history of TIA and CVA in the past. PAST SURGICAL HISTORY: Includes cataract surgery. She has had bilateral mastectomy. She has had bypass, stent placement. She has had removal of a port in the past. ALLERGIES: SULFA AND CODEINE. CURRENT MEDICATIONS: Include Floranex daily. She is on Fosamax once weekly. She is on fenofibrate 48 mg daily, Lovenox 40 mg subQ daily, polyethylene glycol 17 grams in 8 ounces of water daily, citalopram 10 mg daily, amlodipine 5 mg daily, Protonix 40 mg daily. She is on Solu-Medrol 40 mg IV every 12 hours. She is on Mucinex. She is on Neurontin 300 mg b.i.d. She is on Crestor 40 mg at bedtime, Singulair 10 mg at bedtime, Colace 100 mg b.i.d., Tessalon Perles 100 mg t.i.d. p.r.n., Zosyn 3.375 grams every 6 hours, she is on Perforomist 20 mcg daily, budesonide 0.5 mg b.i.d., Grayson 1 tab every 6 hours p.r.n. She is on morphine IV as needed for severe pain, DuoNeb updrafts as needed, Benadryl 25 mg every 6 hours p.r.n., Tylenol 650 mg every 6 hours p.r.n., and MiraLax as needed. HISTORY AND PHYSICAL [id number] BRAXTON DAVIS HABITS: No alcohol or tobacco use. FAMILY HISTORY: Noncontributory. SOCIAL HISTORY: The patient hopes to return back home and get back to her prior level of functioning. REVIEW OF SYSTEMS: GENERAL: Does complain of weakness and fatigue. HEENT: Denies cold, cough, or congestion. CARDIOVASCULAR: Denies any chest pain. PHYSICAL EXAMINATION: VITAL SIGNS: Stable, afebrile. GENERAL: A much older than stated age female in no acute distress upon exam. HEENT: Normocephalic and atraumatic. Mucosa moist. NECK: Supple. No lymphadenopathy. LUNGS: Clear in upper castañeda with no wheezing, rhonchi or rales. HEART: Regular rate and rhythm. No murmurs, rubs or gallops. ABDOMEN: Soft, benign, and nondistended. Positive bowel sounds times 4. EXTREMITIES: No clubbing, cyanosis or edema. NEUROLOGIC: She does have noted weakness, especially in her left side. Does have previous areas of contracture that are noted and neurologically she does have diffuse weakness throughout her upper and lower body. LABORATORY DATA: Her white count is 9.8, H&H of 12 and 38 and platelet count was noted be 490. Her sodium is 137, potassium 3.7. BUN and creatinine of 15 and 0.6 and blood sugar is noted to be 141. 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 The patient has potential to make improvement. We instituted the following multidisciplinary therapies, including not limited to physical, occupational, respiratory, speech, nutritional services, prosthetics and orthotics. Given her complex medical condition and risks for more complications, rehabilitation services cannot be provided at a low level of care such a penitentiary facility. PLAN: 1. [facility] to include the following disciplines; A. Physical therapy to improve gait, all transfer skills and bed mobility to a modified independent level. B. Occupational therapy to improve activities of daily living. C. Case management to help with discharge planning and placement options. D. Nutrition to assist with nutritional needs. E. Rehabilitation nursing to assist in monitoring the patient's underlying medical conditions and to assist with any type bowel or bladder management. 2. The patient's current medication and medical care will be continued. 3. Placed on standard fall precautions. 4. The patient's estimated length of stay is approximately 7-10 days. 5. We will discuss the patient during care team staff meeting this week. I am going to continue on enoxaparin at this time. We will finish out her IV HISTORY AND PHYSICAL [id number] BRAXTON DAVIS, which is Zosyn. We will taper off the IV prednisone as tolerated and I will see again in the a.m. TRANSINT:[id number] Voice Confirmation ID: [id number] DOCUMENT ID: [id number] CHRISTY notes whether there has been none or any medical/functional change since admission: - No change since preadmission screen. CHRISTY attests patient continues to be appropriate for IRF: - Continues to be appropriate. LONDON AVILES MD at 1223 CC: [id number] DICTATION DATE: 12/24/19 1220 INVENTORY CONTROL ASSOCIATE: 12/24/19 1507 ADM IN [facility] [address] [place] [place] [id number]
--- NOTE | 2019-12-28 13:18 | NUR ---
CARE TEAM MEETING: PATIENT SPOUSE ATTENDED THE MEETING. HIS QUESTIONS AND CONCERNS WERE ADDRESSED. PATIENT IS DISCHARGING HOME IN AM 12/29/19. WILL CONTNUE TO FOLLOW WITH PATIENT.
[2019-12-28] MEDS ORDERED: BACLOFEN10 MG PO (16:00)
--- NOTE | 2019-12-28 16:36 | NUR ---
SITTING UP IN BED WATCHING TV, DENIES ANY NEEDS AT THIS TIME, C/L AND FLUIDS IN REACH.
--- NOTE | 2019-12-28 23:18 | NUR ---
PT IN BED WATCHING TV, NO NEEDS NOTED, RESPIRATIONS EVEN/UNLABORED, FALL PRECAUTIONS IN PLACE, FLUIDS/CALL LIGHT WITHIN REACH
[2019-12-28 23:19] VITALS: BP 122/56
--- NOTE | 2019-12-29 06:29 | NUR ---
PT ASLEEP, AROUSES EASILY TO VOICE, RESPIRATIONS SLOW AND STEADY, NO IMMEDIATE NEEDS NOTED, FALL PRECAUTIONS IN PLACE, FLUIDS/CALL LIGHT WITHIN REACH
[2019-12-29 08:01] VITALS: BP 148/83
--- NOTE | 2019-12-29 08:05 | NUR ---
SITTING UP IN BED EATING BREAKFAST, DENIES ANY NEEDS AT THIS TIME, C/L AND FLUIDS IN REACH.
--- NOTE | 2019-12-29 09:00 | NUR ---
I have reviewed this patient and I concur with the Shift Assessment completed by the Licensed Practical Nurse today this shift.
--- NOTE | 2019-12-29 09:30 | NUR ---
PATIENT D/C TO HOME VIA W/C WITH AND ALL PERSONAL BELONGINGS. REVIEWED ALL MEDICATIONS AND FOLLOW UP APPOINTMENTS. PT. DECLINED HOME HEALTH AT THIS TIME. MEDICATIONS CALLED INTO PHARMACY.
--- NOTE | 2019-12-29 09:30 | NUR ---
PATIENT DISCHARGING HOME TODAY WITH SPOUSE. PATIENT SPOUSE DECLINES HOME HEALTH AT THIS TIME AND ANY NEW DME NEEDS. MICHELLE SIGNED, IMM SERVED AND EXPLAINED, ONE GIVEN TO PATIENT AND ONE FILED IN CHART. DR. CLEARY 01/03/20 @ 10:30, DR. BRUNO 02/14/20 @ 3:00. DC INSTRUCTIONS FAXED TO PCP AND REVIEWED WITH PATIENT PER PRIMARY NURSE.
== END 2019-12-29 09:30 | disposition home or self-care (01) | DRG 91 ==
LOC: D.REHAB 16:36
PROVIDERS: ADMIT Emergency Medicine; ATTEND Emergency Medicine
DX: G72.89 Other specified myopathies (principal); J96.01 Acute respiratory failure with hypoxia; J44.1 Chronic obstructive pulmonary disease with (acute) exacerbation; S42.302D Unspecified fracture of shaft of humerus, left arm, subsequent encounter for fracture with routine healing; S22.42XD Multiple fractures of ribs, left side, subsequent encounter for fracture with routine healing; W19.XXXD Unspecified fall, subsequent encounter; I10 Essential (primary) hypertension; E78.5 Hyperlipidemia, unspecified; R05 Cough; M19.90 Unspecified osteoarthritis, unspecified site; D64.9 Anemia, unspecified; E87.6 Hypokalemia; F41.9 Anxiety disorder, unspecified; R53.81 Other malaise; R53.83 Other fatigue; J45.909 Unspecified asthma, uncomplicated; I25.10 Atherosclerotic heart disease of native coronary artery without angina pectoris; J44.9 Chronic obstructive pulmonary disease, unspecified